=== PATIENT | female | born 1955 | race Caucasian/White ===

== ENCOUNTER 2017-09-02 09:48 | Outpatient (CLI) | payer OTHER ==
--- NOTE | 2017-09-02 13:00 | CT ---
CT CHEST WITHOUT CONTRAST: HISTORY: Followup lung nodule. COMPARISON: CT chest from 01/21/[address] chest from 2015. FINDINGS: Marked severe emphysematous changes. There is a cavitary mass in the left upper lobe, for which the morrison have become markedly thicker from 2015 although, relative to the most recent comparison examina tion, the overall size of the cavitary lesion is slightly smaller, measuring 4.6 x 2.8 cm, previously 5.3 x 4.5 cm. The peripheral thickness of the mass has also decreased in maximum dimension. There is, however, what appears to be a round, nodular area within this (series 3, image 23), measuring 6 m m. The 5 mm nodule in the right lower lobe is similar, all the way back to 2015. There are a few new tr ee in bud opacities in the right lower lobe. A 3 to 4 mm nodule in the posterior segment of the right upper lobe, abutting the major fissure, is s imilar (series 3, image 19). Dense calcification of the aorta. Moderate coronary artery calcificati ons. No mediastinal adenopathy. Withint the left kidney is an exophytic 9 mm hypodensity measuring fluid attenuation. Prior right mastectomy. IMPRESSION: 1. Unchanged right lower lobe pulmonary nodule, measuring 5 mm, likely benign. 2. Decreased sized cavitary mass in the left upper lobe, although there is a 9 mm nodular density wi thin it. Continued surveillance is recommended. PET CT may be beneficial in three to six months. POS: TE[place]ORO
== END 2017-09-02 09:49 | disposition home or self-care (01) ==
LOC: CT 09:48
PROVIDERS: ATTEND Internal Medicine Critical Care Medicine
DX: R91.1 Solitary pulmonary nodule (principal); R91.8 Other nonspecific abnormal finding of lung field
CPT/HCPCS: 71250

== ENCOUNTER 2018-08-04 10:40 | Outpatient (CLI) | payer BC ==
--- NOTE | 2018-08-04 13:01 | RAD ---
PA AND LATERAL VIEWS OF THE CHEST: History: Dyspnea. FINDINGS/IMPRESSION: Comparison made with exam of 02-14-17. The heart size is normal. The aorta is tortuous. The lungs are expanded. There is residual opacity in the left upper lobe since 02-14-17. No pneumothoraces or pleural effusions are seen. There are degener ative changes in the spine. There are surgical clips in the right axilla. POS: ELLE
== END 2018-08-04 10:41 | disposition home or self-care (01) ==
LOC: RAD 10:40
PROVIDERS: ATTEND Internal Medicine Critical Care Medicine
DX: R06.00 Dyspnea, unspecified (principal); R91.8 Other nonspecific abnormal finding of lung field; M47.819 Spondylosis without myelopathy or radiculopathy, site unspecified; Z98.890 Other specified postprocedural states
CPT/HCPCS: 71046

== ENCOUNTER 2019-03-20 15:34 | Emergency (ER) | payer BC, MEDICARE ==
--- NOTE | 2019-03-20 16:28 | RAD ---
Exam:Left hip 2 views HISTORY: Fall. Pain. COMPARISON: 10/01/2013 FINDINGS: Uncomplicated left hip arthroplasty. No fracture. IMPRESSION: No fracture.
[2019-03-20 16:46] LABS: #Eosinphils 0.6 thou/uL (0.0-0.7); #Lymphocytes 4.1 thou/uL (1.20-3.40); #Monocytes 0.8 thou/uL (0.11-0.59); #Neutrophils 6.7 thou/uL (1.40-6.50); %Basophils 0.4 % (0.0-1.0); %Eosinophils 4.6 % (0.0-10.0); %Lymphocytes 33.6 % (21.0-51.0); %Monocytes 6.7 % (0.0-10.0); %Neutrophils 54.6 % (42.0-75.0); Hemoglobin 13.4 g/dL (12.0-16.0); Mean Corpuscular HGB CONC 33.7 g/dL (32.0-36.0); Mean Corpuscular Volume 95.1 fL (78.0-98.0); Platelet Count 288 thou/uL (130-400); RBC Distribution Width 11.6 % (11.5-14.5); Red Blood Cell (RBC) Count 4.18 mill/uL (4.20-5.40); White Blood Cell (WBC) Count 12.2 thou/uL (4.8-10.8)
[2019-03-20 17:03] LABS: Anion Gap 16 mmol/L (10-20); BUN (Urea Nitrogen) 21 mg/dL (9.8-20.1); Calc. Creatinine Clearance 0 mL/min (70-130); Calcium 9.6 mg/dL (7.8-10.44); Carbon Dioxide 23 mmol/L (23-31); Chloride 100 mmol/L (98-107); Estimated GFR-MDRD 35; Glucose 108 mg/dL (80-115); Potassium 4.3 mmol/L (3.5-5.1); Sodium 135 mmol/L (136-145)
[2019-03-20 18:26] LABS: Bilirubin Negative (Negative); Blood, Urine Negative (Negative); Clarity Clear (Clear); Glucose, Urine (Dipstick) Normal (Negative); Leukocyte Negative Leu/uL (Negative); Nitrite Negative (Negative); Protein, Urine (Dipstick) Negative (Neg-Trace); Urobilinogen Normal mg/dL (Less than 2)
--- NOTE | 2019-03-20 19:08 | CT ---
Exam: Pelvic CT without contrast HISTORY: Fall. Pain. Injury. Left-sided back pain FINDINGS: Limited evaluation due to bilateral hip arthroplasties. No evidence of perihardware lucency with rega rds to either arthroplasty. Alignment is symmetric. Urinary bladder is unremarkable Visualized alimentary canal is also grossly unremarkable. Diverticulosis of the sigmoid colon. No div erticulitis Atherosclerosis is noted in terms of the distal abdominal aorta and iliac arteries. Symmetric attenuation of the psoas muscles. Visualized mesentery is unremarkable There is no evidence of a fracture with regards to the left or right inferior/superior pubic rami. Left and right iliac wings are intact. Sacroiliac joints are patent and symmetric. Sacral alar are intact. Degenerative changes in the distal lumbar spine and lumbosacral junction are noted. IMPRESSION: No evidence of fracture.
== END 2019-03-20 20:05 | disposition home or self-care (01) ==
LOC: ERS 15:34
DX: M54.16 Radiculopathy, lumbar region (principal); J44.9 Chronic obstructive pulmonary disease, unspecified; I10 Essential (primary) hypertension; F17.210 Nicotine dependence, cigarettes, uncomplicated; Z79.899 Other long term (current) drug therapy; Z79.51 Long term (current) use of inhaled steroids; W19.XXXA Unspecified fall, initial encounter
CPT/HCPCS: 36415; 72192; 80048; 81003; 85025; 96360; 96361

== ENCOUNTER 2019-08-06 13:16 | Outpatient (CLI) | payer MEDICARE ==
--- NOTE | 2019-08-06 13:53 | BD ---
DEXA SCAN: Date: 08/06/19 INDICATION: COPD. Osteoporosis screening. Malignant neoplasm of breast. FINDINGS: Lumbar Spine: BMD (g/cm2) L1 0.913 T-Score: -0.7 Z-Score: 0.9 L2 1.125 T-Score: 0.9 Z-Score: 2.6 L3 1.126 T-Score: 0.4 Z-Score: 2.3 L4 1.131 T-Score: 0.6 Z-Score: 2.6 L1-L4 1.080 T-Score: 0.3 Z-Score: 2.1 Left Forearm: Ulnar Distal: 0.338 T-Score: -1.8 Z-Score: -0.6 Mid Forearm: 0.473 T-Score: -2.5 Z-Score: -0.8 Proximal 1/3 shaft: 0.570 T-Score: -2.1 Z-Score: 0.4 Total: 0.453 T-Score: -2.3 Z-Score: -0.7 IMPRESSION: Based on WHO criteria, the patient's bone mineral density is considered osteopenic. The patient is at moderate risk for fracture. POS: OFF
== END 2019-08-06 13:17 | disposition home or self-care (01) ==
LOC: BICMAMMO 13:16
PROVIDERS: ATTEND Family Medicine
DX: Z13.820 Encounter for screening for osteoporosis (principal); M81.0 Age-related osteoporosis without current pathological fracture
CPT/HCPCS: 77080

== ENCOUNTER 2020-06-27 09:31 | Outpatient (CLI) | payer MEDICARE ==
--- NOTE | 2020-06-27 09:50 | RAD ---
EXAM: Two views chest PROVIDED CLINICAL HISTORY: Dyspnea. COMPARISON: 06/05/2019 FINDINGS: Cardiac silhouette and pulmonary vasculature are within normal limits. There is a large area of pare nchymal opacity seen involving the left upper lobe with increase in parenchymal opacity seen in this region compared to prior exam. A spiculated lesion now appears to be present within the area of parenchymal opacity. Neoplastic process is diagnosis of exclusion. Right lung remains clear. Surgical clips are seen overlying the right lateral chest. Vascular calcifications are seen in the th oracic aorta. No other interval change. IMPRESSION: Interval increase in parenchymal opacity in the left upper lobe with suggestion of a spiculated lesio n now present. Neoplastic process is diagnosis of exclusion. CT scan thorax is recommended for further evaluation..
== END 2020-06-27 09:32 | disposition home or self-care (01) ==
LOC: BICRAD 09:31
PROVIDERS: ATTEND Internal Medicine Critical Care Medicine
DX: R06.00 Dyspnea, unspecified (principal); R91.8 Other nonspecific abnormal finding of lung field
CPT/HCPCS: 71046

== ENCOUNTER 2020-06-27 11:14 | Inpatient (IN) | payer MEDICARE, OTHER ==
[2020-06-27 14:16] VITALS: BMI 22.4
[2020-06-27] MEDS ORDERED: Bacteriostatic Water 30 ML VIAL FS PRN (15:00)
[2020-06-27] MEDS ORDERED: Albuterol 200 PUFF (6.7GM INHALER) INH PRN (15:22)
[2020-06-27 15:24] LABS: #Eosinphils 0.4 thou/uL (0.0-0.7); #Lymphocytes 2.9 thou/uL (1.20-3.40); #Monocytes 0.9 thou/uL (0.11-0.59); #Neutrophils 7.6 thou/uL (1.40-6.50); %Basophils 0.2 % (0.0-1.0); %Eosinophils 3.3 % (0.0-10.0); %Lymphocytes 24.4 % (21.0-51.0); %Monocytes 7.5 % (0.0-10.0); %Neutrophils 64.7 % (42.0-75.0); Hemoglobin 10.5 g/dL (12.0-16.0); Mean Corpuscular HGB CONC 33.1 g/dL (32.0-36.0); Mean Corpuscular Hemoglobin 27.8 pg (27.0-31.0); Mean Corpuscular Volume 84.2 fL (78.0-98.0); Mean Platelet Volume 6.2 fL (7.4-10.4); Platelet Count 468 thou/uL (130-400); RBC Distribution Width 14.3 % (11.5-14.5); Red Blood Cell (RBC) Count 3.78 mill/uL (4.20-5.40); White Blood Cell (WBC) Count 11.8 thou/uL (4.8-10.8)
[2020-06-27 15:46] LABS: ALT (SGPT) 8 U/L (8-55); AST (SGOT) 20 U/L (5-34); Albumin 3.7 g/dL (3.4-4.8); Alkaline Phosphatase 72 U/L (40-110); Anion Gap 13 mmol/L (10-20); BUN (Urea Nitrogen) 13 mg/dL (9.8-20.1); Bilirubin, Total 0.3 mg/dL (0.2-1.2); Calc. Creatinine Clearance 39 mL/min (70-130); Calcium 8.9 mg/dL (7.8-10.44); Carbon Dioxide 24 mmol/L (23-31); Chloride 98 mmol/L (98-107); Estimated GFR-MDRD 40; Globulin 3.9 g/dL (2.4-3.5); Glucose 124 mg/dL (80-115); Potassium 4.2 mmol/L (3.5-5.1); Protein, Total 7.6 g/dL (6.0-8.3); Sodium 131 mmol/L (136-145)
--- NOTE | 2020-06-27 15:59 | CT ---
CT CHEST WITHOUT IV CONTRAST CLINICAL INDICATION: Abnormal chest x-ray. Masslike opacity left upper lobe on chest x-ray. COMPARISON: CT thorax on 09/02/2017 FINDINGS: Aorta: Dense vascular calcifications in the thoracic aorta as well as involving the coronary arteries . Lungs: There are patchy interstitial and parenchymal opacities seen in the left upper lobe in additio n to a large fluid and gas collection in the left upper lobe measuring 7 cm craniocaudal x6.2 cm AP x5 cm transverse. There is adjacent decreased attenuation seen which is likely related to fluid in th e pleural space. The left upper lobe bronchus is not visualized, and there is suggestion of greater area of soft tissue density in the left hilar/suprahilar location. While a neoplastic process cannot be excluded, findings are worrisome for infection with lung abscess. Minimal irregular patchy nodular density is seen in the medial aspect of the left upper lobe could be related to focal area of pneumonitis. A stable approximately 7 mm pulmonary nodule is seen in the right lower lobe. 4 mm pulmonary nodule s een in the medial aspect right upper lobe A thin-walled cavitary lesion is seen at the posterior aspect of the right lower lobe which was not seen on prior exam. This measures 2 cm. Linear area of peripheral scarring in the right lower lobe is again seen with evidence of mild emphys ematous changes in the upper lobes. Small left pleural effusion is present Mediastinum: Limited secondary to lack of intravenous contrast. Multiple prominent precarinal lymph n ode is seen, this is stable compared to the prior study in 2017. Few mildly prominent prevascular space lymph nodes are seen measuring up to 9 to 10 mm in short axis dimension which are likely reacti ve. Trace pericardial effusion versus pericardial thickening is present. Thyroid gland: Grossly normal nonenhanced CT appearance for Osseous structures: Degenerative changes are seen in the spine. Chest wall: Evidence of right mastectomy. Surgical clips are seen in the right axillary region. Upper abdomen: Exophytic hypodense lesion midportion left kidney incompletely imaged. This was also s een on the prior study but slightly larger in size measuring 1.8 cm on the current exam and previously measuring 1.3 cm. This probably represents mild interval enlargement of a cyst but is diff icult to accurately characterize. Left perinephric inflammatory stranding is partially imaged. There is colonic diverticulosis. IMPRESSION: 1. Interstitial thickening and patchy parenchymal airspace opacities in addition to a fluid and gas c ollection left upper lobe suggesting infectious process and lung abscess with greatest dimension of 7 cm. There is a more masslike density in the left hilar/suprahilar location which also could be rela ann to infectious process, but associated neoplastic process would be difficult to exclude. 2. Areas of scarring in the left upper lobe and right lower lobe which were seen on prior study. Evid ence of COPD. 3. Irregular nodular density right upper lobe which could be related to focal area of pneumonitis. Fo llow-up evaluation recommended. 4. Stable right lower lobe pulmonary nodule. 5. Small left pleural effusion. 6. Difficult to characterize exophytic hypodense lesion superior pole left kidney. Follow-up renal so nogram is suggested. 7. Probable reactive mediastinal lymphadenopathy.
[2020-06-27] MEDS: methylPREDNISolone Sod Succ 40 MG VIAL IVP SCH (16:58)
[2020-06-27] MEDS: cefTRIAXone\\ROCEPHIN 2 GM in Sodium Chloride 0.9% 100 ML IVPB SCH (16:58)
[2020-06-27] MEDS: Benzonatate 100 MG CAP PO SCH ×2 (16:58→20:17)
[2020-06-27] MEDS: Sodium Chloride 0.45% 1,000 ML IV SCH (17:01)
--- NOTE | 2020-06-27 18:49 | HP ---
06/27/2020 HISTORY OF PRESENT ILLNESS: Brit Alexander is a very pleasant woman, now 65 years old. I met her in 2011, when she presented with an abnormal chest CT. She had been diagnosed in the previous year, undergone a mastectomy, and had been treated with hormone therapy. She at that time was losing weight, presumably secondary to an esophageal stricture that subsequently was dilated. CT angiogram done in [place] in January of 2011 showed no lung mass at that time. When she presented to me, she had a cavitary left lung mass that abutted the pleura on the left and liver lesion suggestive of metastatic disease. Her liver was biopsied in [place]. The biopsy was benign liver tissue. She was referred to [place], but decided to come here. She was referred for a CT-guided biopsy of the lung lesion, but when she had a followup CT, the lesion was smaller with thinner morrison, so we elected to follow her and consider workup of the liver lesions. In February of 2013, the lesion had gone from being 35 x 26 to 30 x 12. It is felt that possibly this is aspiration related, i.e. lung abscess. She was seen by Dr. Manzanares and Dr. Garibay, who did not feel her liver lesions need to be addressed. She did not keep her followup with me until 2016. She had a persistent abnormality in her left upper lobe, so I set her up for a CAT scan. Her exam was unremarkable. On the followup CAT scan, she had very dense infiltrates around the bullous airspace disease, it was just bullous disease in 2014. We discussed workup of this abnormality, but she informed me that she would not allow me to treat her malignant process if we identified one. I recommended a followup CT in four months. I reviewed the bronchoscopy, which was done in the past, which was negative for acid-fast bacilli, fungi, or malignant cells. No endobronchial lesions were seen. We discussed resection of this and she again declined. She was seen by me in 2015, which was when the bronchoscopy was done, Achromobacter and Alcaligenes were both isolated and sensitive to sulfa, so she was treated with Bactrim. When she showed up for a CAT scan in January, the density appeared to have more aerated lung around it and it was a little smaller. Again, I discussed resection and she declined. She was still smoking heavily at that time and was wheezing when I saw her. She weighed in the 80-pound range, which put her at risk for even surviving something such as a flu. She was seen in August 2017 and the left lesion had actually continued to shrink. I recommended a followup CT in 9 months after that and she was seen by me basically a year later, in end of July 2018. The density in her left lung was much less visible. I reviewed films with her, going all the way back to 2014. She was still smoking heavily. At that time, she had a cough, so she was given antibiotics and prednisone. I recommended a followup in a year, but she has not been seen by me since then. She presented today with complaints of having a cough with copious amounts of sputum production, especially at night, going back to the beginning of the year. Because of coronavirus, she was unwilling or unable to get in to see anybody, so she came in today. She denies having fever with this. She has been COVID screened somewhere along the way. PAST MEDICAL HISTORY: Remarkable for; 1. Breast cancer. 2. History of elbow surgery. 3. Hip surgery. 4. History of hypertension. 5. History of reflux with esophageal dilation twice. 6. History of tonsillectomy, hysterectomy, and appendectomy. 7. History of mastectomy in March of 2012. It was stage IIA, T2 N0 M0 lesion. 8. History of heavy smoking, one or more packs a day. She does not appear to have ever been a heavy drinker. FAMILY HISTORY: Negative for lung disease in early age. REVIEW OF SYSTEMS: Today is remarkable for the above with no history of hemoptysis. PHYSICAL EXAMINATION: VITAL SIGNS: In the office, her pulse was 120. She says her heart rate has been as high as 130 for months. HEENT: Pupils are equal. Sclerae are anicteric. NECK: Supple. No lymphadenopathy. LUNGS: Clear. HEART: Regular rhythm, rapid rate. No gallop. ABDOMEN: Soft and nontender. EXTREMITIES: Without clubbing, cyanosis, or edema. NEUROLOGIC: Grossly nonfocal. DIAGNOSTIC STUDIES: Chest radiograph shows an alveolar infiltrate in the left upper lobe that was not there two years ago. I found a film done in the emergency room a year ago that shows a linear density in that area that was small. At this point in time, I feel she needs to be admitted. She does not want to go home and actually wants to be in the hospital. She will be treated with nebulized treatments, IV steroids, and empiric antimicrobial therapy to cover for aspiration pathogens. She will have tuberculosis ruled out, although I doubt she has TB. Resting tachycardia can be worked up with an echocardiogram and thyroid studies once her acid-fast smears are documented to be negative. This is a 70 min visit with greater than 50% spent on unit with coordination of care. Job ID: [id number] [facility]ITAL[facility]itt[facility]
[2020-06-27] MEDS: Enoxaparin Sodium 40 MG/0.4 ML SYRINGE SC SCH ×2 (20:16→22:08)
[2020-06-27] MEDS: Famotidine 20 MG TAB PO SCH (20:17)
[2020-06-27] MEDS: Albuterol 200 PUFF (6.7GM INHALER) INH SCH (23:36)
[2020-06-28] MEDS: methylPREDNISolone Sod Succ 40 MG VIAL IVP SCH ×2 (04:47→15:53)
[2020-06-28] MEDS: Sodium Chloride 0.45% 1,000 ML IV SCH ×2 (05:58→20:14)
[2020-06-28] MEDS: Albuterol 200 PUFF (6.7GM INHALER) INH SCH ×4 (05:58→18:32)
[2020-06-28] MEDS: Benzonatate 100 MG CAP PO SCH ×3 (08:38→20:16)
[2020-06-28] MEDS: Aspirin 81 mg Enteric Coated Tablet PO SCH (08:39)
[2020-06-28] MEDS: Losartan 25 MG TAB PO SCH (08:39)
[2020-06-28] MEDS: Famotidine 20 MG TAB PO SCH ×2 (08:39→20:15)
[2020-06-28] MEDS: cefTRIAXone\\ROCEPHIN 2 GM in Sodium Chloride 0.9% 100 ML IVPB SCH (15:53)
[2020-06-28] MEDS: cloNIDine 0.1 MG TAB PO PRN (15:55)
[2020-06-28 16:07] LABS: SARS-CoV-2 MS2 Positive; SARS-CoV-2 N Gene Negative; SARS-CoV-2 S Gene Negative; SARS-CoV-2 by NAA Not Detected (NotDetected); SARS-CoV-2 orf1ab Negative
--- NOTE | 2020-06-28 16:57 | PRG ---
DATE OF SERVICE: 06/28/2020 SUBJECTIVE: Ms. Alexander is doing well. She says she feels much better. Her cough is so much better that she had been able to produce any sputum today. She is no longer wheezing. She was quite bronchospastic yesterday. OBJECTIVE: HEART: Regular rhythm. ABDOMEN: Soft. LABORATORY DATA: CT was reviewed. She has evidence of food in her esophagus up behind her heart as well as her stomach being in her chest. ASSESSMENT AND DISCUSSION: I contacted Dr. Manzanares. He has seen her in the past and he says he has dilated strictures twice that were extremely tight. After I went back and talked to her second time, she informed me that she had noticed that she was having trouble swallowing pills. When I saw her in 2017, she weighed 80 pounds. She weighs 130 pounds now. I asked her how much weight she had gained via a regular diet and she said that she had been gaining weight by eating a lot of ice cream, which also makes me believe that this stricture is a big factor. 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 When I discussed tuberculosis with her and her , she said "the only way I could get tuberculosis is if I got it from the cows." I will discontinue her isolation. We will transfer her to a medical bed. We will continue with IV antibiotics for now. Zosyn might be a little better choice for broad aspiration pathogens coverage, so we will start that this evening. We will continue steroids. Dr. Manzanares informed me that he be willing to do endoscopy when I felt it was stable. I think we should be able to consider endoscopy for possible stricture dilation on Friday. Job ID: [id number]
[2020-06-28] MEDS: guaiFENesin/Codeine Phosphate 200 mg/20 mg 10 ml UD Cup PO PRN ×2 (17:10→23:22)
[2020-06-28] MEDS: Piperacillin/Tazobactam 3.375 GM in Sodium Chloride 0.9% 100 ML IVPB SCH ×2 (17:10→23:22)
--- NOTE | 2020-06-28 17:29 | EKG ---
Test Reason : Blood Pressure : / mmHG Vent. Rate : 111 BPM Atrial Rate : 111 BPM P-R Int : 140 ms QRS Dur : 082 ms QT Int : 324 ms P-R-T Axes : 019 053 074 degrees QTc Int : 440 ms Sinus tachycardia with frequent Premature ventricular complexes Otherwise normal ECG Confirmed by DR. Candis SCHMIDT ([id number]) on 06/28/2020 5:29:22 PM Referred By: AVINASH Confirmed By:DR. Candis SCHMIDT
[2020-06-28] MEDS: Enoxaparin Sodium 40 MG/0.4 ML SYRINGE SC SCH (20:15)
[2020-06-29] MEDS: cloNIDine 0.1 MG TAB PO PRN ×2 (02:59→21:14)
[2020-06-29] MEDS: methylPREDNISolone Sod Succ 40 MG VIAL IVP SCH ×2 (02:59→16:24)
[2020-06-29] MEDS: Piperacillin/Tazobactam 3.375 GM in Sodium Chloride 0.9% 100 ML IVPB SCH ×3 (06:20→18:16)
[2020-06-29] MEDS: Albuterol 200 PUFF (6.7GM INHALER) INH SCH (07:45)
[2020-06-29] MEDS: Aspirin 81 mg Enteric Coated Tablet PO SCH (08:43)
[2020-06-29] MEDS: Famotidine 20 MG TAB PO SCH (08:43)
[2020-06-29] MEDS: Losartan 25 MG TAB PO SCH (08:43)
[2020-06-29] MEDS: Benzonatate 100 MG CAP PO SCH ×3 (08:43→21:12)
[2020-06-29] MEDS: Sodium Chloride 0.45% 1,000 ML IV SCH ×2 (12:00→22:39)
--- NOTE | 2020-06-29 12:30 | PRG ---
DATE OF SERVICE: 06/29/2020 She says she feels like her breakfast is stuck in her esophagus. I have asked her to just move forward throughout the rest of the day with clear liquids. Dr. Manzanares has been consulted. She says she feels 150% better than she felt when she was in my office earlier in the week. In my opinion, clinically it is most likely that she is chronically aspirating and has a left upper lobe aspiration related pneumonia and abscess. Continue IV antibiotics for now. I believe she is stable for endoscopy tomorrow. I do not think waiting will be of any benefit given that it is highly likely she has a recurrent stricture based on her clinical presentation and her CAT scan. Job ID: [id number] [facility]
[2020-06-29] MEDS ORDERED: Pantoprazole 40 MG VIAL IVP SCH (16:15)
[2020-06-29] MEDS: Enoxaparin Sodium 40 MG/0.4 ML SYRINGE SC SCH (21:12)
[2020-06-29] MEDS: traMADol HCl 50 MG TAB PO PRN (21:15)
[2020-06-30] MEDS: Piperacillin/Tazobactam 3.375 GM in Sodium Chloride 0.9% 100 ML IVPB SCH ×5 (00:59→23:44)
[2020-06-30] MEDS: methylPREDNISolone Sod Succ 40 MG VIAL IVP SCH (05:00)
[2020-06-30] MEDS: FLU VACC QS2020-21(65YR UP)/PF 240 MCG/0.7 ML SYRINGE IM ONE (06:54)
[2020-06-30] MEDS: Aspirin 81 mg Enteric Coated Tablet PO SCH (08:37)
[2020-06-30] MEDS: Losartan 25 MG TAB PO SCH (08:37)
[2020-06-30] MEDS: cloNIDine 0.1 MG TAB PO PRN ×2 (08:37→17:26)
[2020-06-30] MEDS: Benzonatate 100 MG CAP PO SCH ×3 (08:37→20:44)
[2020-06-30] MEDS ORDERED: Pantoprazole 40 MG VIAL IVP SCH (09:00)
--- NOTE | 2020-06-30 10:29 | CON ---
DATE OF CONSULTATION: REASON FOR CONSULT: Pneumonia with abscess in the right base of the lung, suspect related to aspiration. HISTORY OF PRESENT ILLNESS: Ms. Alexander is a 65-year-old female known to me from previous issues with tight esophageal strictures, requiring dilatation. Last procedure was about 5 years ago in 12/2014, at which time, she had a very tight pinpoint stricture at 30 cm, the hiatal hernia with hiatus at 40 cm, this was dilated also in 10/2014. I have not seen her since that time. She notes in the past several months, she has had more issues with coughing when lying down, feeling that she has regurgitation when lying down and occasionally she will have dysphagia for solids such as bread or chicken, although this has not really been an issue that she thought about until Dr. Gentile mentioned it. We knew she was being admitted for lung lesions and lung abscess. She has had a history of chronic smoking, bullous lung disease for quite some time. She has had abnormalities with cavitary lung lesions in the past, as recently as 2012. Here, she had a CAT scan showing a large abscess in the right lower lung. Presently with antibiotics, she is feeling much better, not coughing as much when she lays down. Again, she did note she had some dysphagia with the roll ordered today, so she has gone to a liquid diet. PAST MEDICAL HISTORY: Breast cancer, history of elbow surgery, history of hip surgery, hypertension, reflux with previous esophageal dilatations for tight esophageal stricture distally, hysterectomy, tonsillectomy, appendectomy, mastectomy in 2011 with stage IIA cancer. History of heavy smoking continues. FAMILY HISTORY: Negative for lung disease at early age. SOCIAL HISTORY: She denies being a heavy drinker in the past. REVIEW OF SYSTEMS: No history of hemoptysis. Her fevers resolved, chills resolved. She denies any melena, hematochezia, or hematemesis. MEDICATIONS: At home, she notes she takes, 1. Protonix twice a day. 2. Ipratropium bromide. 3. Albuterol. 4. Cyclobenzaprine. 5. Atorvastatin. 6. Aspirin. Here she is on, 1. Albuterol. 2. Lovenox. 3. Pepcid. 4. Solu-Medrol. 5. Zosyn. 6. IV fluid. PHYSICAL EXAMINATION: GENERAL: She is resting comfortably in bed. She cough. She has decreased breath sounds in the right base of lung, but otherwise seems to be moving air pretty well. VITAL SIGNS: Temperature 97, pulse 99, blood pressure is 156/53, respirations 16, and O2 saturation 98% on room air. LUNGS: Clear. HEART: Regular rate and rhythm without clicks or murmurs. ABDOMEN: Soft and nontender. She is thin. She is frail. There is no palpable hepatosplenomegaly. LABORATORY DATA: White count was 13 on admission, is 11.8; hemoglobin is 10.5, down from 13.5; platelet count is 468. INR is 1.1. Sodium 131, potassium 4.3, BUN and creatinine of 13 and 1.32. Liver function tests are normal with AST and ALT of 20 and 8, alkaline phosphatase was 72. TSH 1.5. SARS test negative on the . IMAGING STUDIES: CAT scan of the chest; lung abscess, left upper lobe. ASSESSMENT: Lung abscess, likely related to aspiration. She continues to smoke. She has no overt dysphagia for liquids. She has not eaten anything solid recently. Most of her symptoms are when she reclines, this may be related to return of her tight stricture in the lower esophagus. RECOMMENDATIONS: IV PPI q.12. EGD tomorrow. If the EGD is normal, we will get a swallow study with Speech Pathology to rule out silent aspiration. If she has a stricture, we will get that dilated. Job ID: [id number]
[2020-06-30] MEDS ORDERED: Sodium Chloride 0.9% (PF) 10 ML VIAL FS PRN (11:45)
[2020-06-30] MEDS ORDERED: PROPOFOL 200 MG/20 ML VIAL ONE (11:47)
[2020-06-30] MEDS: Metoclopramide HCl 10 MG TAB PO SCH ×3 (12:36→20:44)
[2020-06-30] MEDS: Sodium Chloride 0.45% 1,000 ML IV SCH (12:36)
--- NOTE | 2020-06-30 14:52 | OP ---
DATE OF PROCEDURE: 06/30/2020 PROCEDURES PERFORMED: 1. Esophagogastroduodenoscopy with biopsy of Kahn esophagus. 2. Dilatation of esophageal stricture. PREPROCEDURE DIAGNOSES: 1. Aspiration pneumonia. 2. Prior history of esophageal strictures, previously dilated in 2013 and 2014. 3. Gastroparesis, previously diagnosed on endoscopy in 2013. POSTPROCEDURE DIAGNOSES: 1. 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 Biopsies obtained in 4 quadrants every 2 cm for 3 bottles at 34, 32, and 30 cm from incisor orifice to evaluate for Kahn's. 2. Retained gastric contents, similar has been seen on previous endoscopies, consistent with gastroparesis. No evidence of gastric outlet obstruction or duodenal obstruction. The amount of food made visualization poor. 3. Slight esophageal stricture at the proximal aspect of the Kahn's, dilated to 18 mm with mild defect. ANESTHESIA: TIVA. RECOMMENDATIONS: 1. B.i.d. PPI. 2. We will start on low-dose Reglan. 3. The patient will need to sleep with head of the bed elevated to prevent aspiration. 4. It may be reasonable to obtain a modified barium swallow to evaluate oropharyngeal dysphagia. She may benefit from Speech Pathology and swallowing exercises. However, I suspect that most of her aspiration is occurring because of her severe gastroparesis and large hiatal hernia. She needs to eat a largest meal earlier in the day when she is more upright. PROCEDURE IN DETAIL: After the patient was informed of the risks, benefits, and possible complications of endoscopy including perforation, bleeding, reaction to medication, and aspiration, informed consent was obtained. The patient was brought to endoscopy suite where she was sedated in gradual fashion. Once she was comfortable, a bite block was placed in the incisor orifice. The endoscope was advanced in the esophagus, stomach, and second and third portions of the duodenum and was slowly removed. The esophagus was notable for Kahn esophagus with measurements above. There was no abnormal mucosa, nodules, or masses in the Kahn's, so a random surveillance biopsies were obtained every 2 cm for 3 jars in a 4-quadrant random fashion. There was slight narrowing at the proximal aspect of the Kahn's in the esophagus, consistent with prior history of strictures. This was not nearly as bad as what was seen in the past. This was dilated with an 18-mm balloon. The scope was advanced into the stomach, where hiatus was noted at 38 cm from incisor orifice. The proximal gastric folds were at 34 cm, proximal Kahn's were at 30. The stomach was entered. There was a copious amount of formed bezoar food material. There was no evidence of gastric outlet obstruction or duodenal obstruction. The duodenum and stomach were incompletely visualized secondary to the large amount of food retained. The scope was removed. The patient tolerated the procedure well and was brought to the recovery room in stable condition. Job ID: [id number]
--- NOTE | 2020-06-30 16:15 | PRG ---
DATE OF SERVICE: 06/30/2020 SUBJECTIVE: Brit Alexander underwent endoscopy. She had minimal stricture, but predominantly gastroparesis, very large hiatal hernia. She has been instructed to make her lunch meal her largest meal and then she probably should get on liquids after that. It is clinically apparent that the cause of her decline was chronic and recurrent aspiration, sleeping on her left side. We will switch her to p.o. steroids today. She says she feels 200% better than she has felt for the last 3 months. We will continue with IV antibiotics for now. We will decide tomorrow when she goes home tomorrow or Friday, but it is likely that she will go home tomorrow given her stability. Job ID: [id number]
[2020-06-30] MEDS: traMADol HCl 50 MG TAB PO PRN (17:28)
[2020-06-30 20:16] VITALS: TEMP 97.9
[2020-06-30] MEDS: Pantoprazole 40 MG VIAL IVP SCH (20:44)
[2020-06-30] MEDS: Enoxaparin Sodium 40 MG/0.4 ML SYRINGE SC SCH (20:45)
[2020-07-01] MEDS: Sodium Chloride 0.45% 1,000 ML IV SCH ×2 (06:01→14:48)
[2020-07-01] MEDS: Piperacillin/Tazobactam 3.375 GM in Sodium Chloride 0.9% 100 ML IVPB SCH ×2 (06:01→12:18)
[2020-07-01 06:11] LABS: Hemoglobin A1c 6.1 % (4.0-6.0)
[2020-07-01] MEDS ORDERED: predniSONE 20 MG TAB PO SCH (08:00)
[2020-07-01] MEDS: Benzonatate 100 MG CAP PO SCH (09:34)
[2020-07-01] MEDS: Losartan 25 MG TAB PO SCH (09:34)
[2020-07-01] MEDS: Aspirin 81 mg Enteric Coated Tablet PO SCH (09:34)
[2020-07-01] MEDS: Metoclopramide HCl 10 MG TAB PO SCH ×2 (09:35→12:19)
[2020-07-01] MEDS: Pantoprazole 40 MG VIAL IVP SCH (09:35)
[2020-07-01] MEDS: traMADol HCl 50 MG TAB PO PRN (09:35)
[2020-07-01] MEDS: cloNIDine 0.1 MG TAB PO PRN (12:24)
[2020-07-01 14:10] VITALS: BP 142/78
[2020-07-01] MEDS: FLU VACC QS2020-21(65YR UP)/PF 240 MCG/0.7 ML SYRINGE IM ONE (14:56)
--- NOTE | 2020-07-02 08:32 | PRG ---
DATE OF SERVICE: 07/01/2020 CROSS COVERAGE: Hany Manzanares MD SUBJECTIVE: This 65-year-old female who has aspiration pneumonia, chronic reflux, history of esophageal stricture, dysphagia. She actually had EGD by Dr. Hany Manzanares and underwent dilation. She also has hiatal hernia and what appears to be . The patient had large amount of retained food material in the area of the stomach, could not be completely visualized. procedure, she was on low-dose Reglan and she is actually feeling a whole lot better. She had several stools through the night and this morning. There is no abdominal pain. No nausea or vomiting. She feels . She has no complaints. OBJECTIVE: GENERAL: Appears very comfortable. She is in no distress. VITAL SIGNS: Afebrile. Pulse is 92, blood pressure CARDIOVASCULAR: LUNGS: Clear to ausculation. ABDOMEN: Soft. . RECOMMENDATIONS: 1. Continue present treatment. 2. Follow up labs. 3. Follow up with Dr. Hany Manzanares. Job ID: [id number]
--- NOTE | 2020-07-04 15:49 | DIS ---
DATE OF ADMISSION: 06/27/2020 DATE OF DISCHARGE: 07/01/2020 DISCHARGE DIAGNOSES: 1. Aspiration pneumonia, lung abscess. 2. Chronic obstructive pulmonary disease with bronchospasm and exacerbation on admission, resolved. 3. Hiatal hernia. 4. Gastroparesis of unclear etiology. 5. Past history of cachexia, most likely related to a stricture and her gastroparesis. She has gained 50 pounds since last seen by me in 2017. HOSPITAL COURSE: Please see history and physical for details. Briefly, Ms. Alexander presented with several months of cough, sputum production and shortness of breath. She was admitted to the hospital after an x-ray showed a dense left upper lobe alveolar infiltrate. She improved dramatically in the first 24 hours and was unable to produce any sputum for acid-fast testing. She has been isolated at home since the beginning of the year, so it is unlikely that she had tuberculosis, especially given her dramatic clinical improvement with steroids and IV antibiotics. She is clinically improved. She has undergone endoscopy which showed only a minor stricture. She did have findings consistent with gastroparesis with abundant retained food products. She has been placed on a liquid diet in the evening, solid diet until lunch every day. She will go home with a prednisone taper lasting 2 weeks. She will take 2 weeks of Augmentin 875 b.i.d. She has been placed on Reglan 5 mg before meals and at bedtime. She will follow up with me in 4 to 6 weeks for a chest x-ray. I will be happy to work her in sooner if she has any problems. She should keep followup with Dr. Manzanares at some point during this time period as well, and this was relayed to her. Prescriptions will be given to the patient. She is stable for discharge with a room air saturation between 95 and 97 and actually claims that she feels 200% better than she felt on admission. Job ID: [id number]
== END 2020-07-01 15:03 | disposition home or self-care (01) | DRG 177 ==
LOC: 2SW 13:31 → T4-B 06-29 02:36
PROVIDERS: ADMIT Internal Medicine Critical Care Medicine; ATTEND Internal Medicine Critical Care Medicine
PROC: 0D718ZZ Dilation of Upper Esophagus, Via Natural or Artificial Opening Endoscopic (ICD-10-PCS; principal; 2020-06-30)
PROC: 0DB58ZX Excision of Esophagus, Via Natural or Artificial Opening Endoscopic, Diagnostic (ICD-10-PCS; 2020-06-30)
DX: J85.1 Abscess of lung with pneumonia (principal); J69.0 Pneumonitis due to inhalation of food and vomit; K31.84 Gastroparesis; I10 Essential (primary) hypertension; K22.70 Barrett's esophagus without dysplasia; K22.2 Esophageal obstruction; K44.9 Diaphragmatic hernia without obstruction or gangrene; K21.9 Gastro-esophageal reflux disease without esophagitis; Z90.49 Acquired absence of other specified parts of digestive tract; Z90.710 Acquired absence of both cervix and uterus; Z88.1 Allergy status to other antibiotic agents; Z88.6 Allergy status to analgesic agent
CPT/HCPCS: 36415; 71046; 71250; 80053; 83036; 84443; 85025; 87116; 87206; 87635; 88305; 88312; 88313; 90471; 90662; 93005; 93010; 94640; C9113; G0008; J0696; J1650; J2543; J2704; J2920; J3490; J7512; J7620; U0003

== ENCOUNTER 2020-07-21 23:53 | Inpatient (IN) | payer MEDICARE ==
[2020-07-22 00:26] VITALS: BMI 22.5
[2020-07-22] MEDS ORDERED: Albuterol 200 PUFF (6.7GM INHALER) INH PRN (02:20)
[2020-07-22] MEDS: Piperacillin/Tazobactam 3.375 GM in Sodium Chloride 0.9% 100 ML IVPB SCH ×3 (03:54→15:35)
[2020-07-22] MEDS: methylPREDNISolone Sod Succ 40 MG VIAL IVP SCH ×3 (03:54→23:16)
--- NOTE | 2020-07-22 04:07 | HP ---
REASON FOR ADMISSION: Shortness of breath. HISTORY OF PRESENT ILLNESS: This is a 65-year-old female patient presenting to the emergency room complaining of shortness of breath and chest pain. The patient was recently discharged from this hospital approximately three weeks ago. She was diagnosed with aspiration pneumonia and lung abscess. She was seen by Dr. Gentile. During her stay, she underwent an EGD that showed minor stricture and finding consistent with gastroparesis with abundant retained food products. She was placed on a liquid diet in the evening, solid diet until lunch every day. She was given antibiotics, then discharged home on Augmentin and a prednisone taper. She finished her course of Augmentin approximately a week ago, as well as her prednisone. She started being short of breath for the past couple days. Also developed chest pain that is constant and localized in the retrosternal area radiating to her back, exacerbated by taking a deep breath. No fevers. No chills. She is coughing, but her sputum is clear. The shortness of breath was at rest and worse with activity. She went back to the emergency room. A CAT scan of the chest revealed worsening of her lung abscess. She was given antibiotics, transferred to our med/surg floor. When I went to see her, she appeared to be comfortable, in no acute distress. PAST MEDICAL HISTORY: 1. COPD. 2. High blood pressure. 3. GERD. 4. Hiatal hernia. 5. Breast cancer, status post mastectomy. Did undergo hormonal therapy. 6. Hip surgery. 7. Elbow surgery. 8. Hysterectomy. SOCIAL HISTORY: She continues to smoke one pack a day. Does not drink alcohol. FAMILY HISTORY: Reviewed and found to be noncontributory. ALLERGIES: TO MORPHINE AND LEVAQUIN. REVIEW OF SYSTEMS: All systems reviewed. Except for the above mentioned, found to be negative. PHYSICAL EXAMINATION: GENERAL: Awake, alert, oriented, does not appear in distress. VITAL SIGNS: Her blood pressure is 150/67, temperature is 97, pulse 94, and saturating 99% on room air. HEENT: Head is nontraumatic, normocephalic. Pupils are equal and reactive. Extraocular movements are intact. Nonicteric sclerae. Well injected conjunctivae. Oral mucosa normal. Nasal mucosa normal. NECK: Supple. No adenopathy. No murmur. Thyroid is not palpable. Trachea is midline. No supraclavicular adenopathy. HEART: S1 and S2 regular. No murmurs. No gallops. No friction rubs. No displacement of PMI. LUNGS: Decreased air entry bilaterally. ABDOMEN: Bowel sounds are positive. Nontender abdomen. No hepatosplenomegaly. EXTREMITIES: No lower extremity edema. No cyanosis. NEURO: Cranial nerves 2 through 12 within normal limits. Normal motor function. Normal sensory function. Normal reflexes. LABORATORY DATA: Blood work shows WBC of 13.7, hemoglobin of 11.7, previous WBC 11.8, and platelet count 347. Sodium of 130, potassium 4.9, bicarb of 20, and creatinine 1.29, baseline 1.32. Urinalysis negative for infection. IMAGING DATA: CT of the chest showed slight increase in size and density of the left upper lobe pathologic process since the prior scan, presumably fluid-filled central area remains. Infiltrative changes in the lung around the area have advanced slightly. There is obviously more volume loss in the left upper lobe than before. Several minimal patchy areas in the right lung as described above. A few particularly, one in the right lower lobe posteriorly, have gotten slightly larger over time. Possibly GE reflux, fluid-filled esophagus. It is rather severe in amount. Presumably at the very least, this is an infectious process and to that extent, it would seem that it is not responding optimally to any antibiotic therapy, since there are some areas getting slightly worse. As has been mentioned before, a concomitant neoplastic component is not excluded on the basis of the CT alone. ASSESSMENT AND PLAN: This is a 65-year-old female patient, presenting with shortness of breath and worsening of her lung abscess and pneumonia. Initially thought that it was due to aspiration. Her CAT scan does show delayed emptying. Pulmonary. The patient will be admitted to Med/Surg. We will start her on neb treatments, on IV Solu-Medrol, also IV Zosyn. We will consult Dr. Gentile. For her blood pressure, we will resume her home medication. We will have her on IV Lopressor on as needed basis. GI. The patient possibly is aspirating, although she denies that. We will start her on a clear liquid diet for now and follow Dr. Gentile's recommendation. For DVT prophylaxis, she will be on SCDs and heparin subcutaneously. If the patient does have chronic renal insufficiency, we will continue to monitor her electrolytes on a daily basis. Job ID: [id number]
[2020-07-22 05:48] LABS: #Eosinphils 0.6 thou/uL (0.0-0.7); #Lymphocytes 1.8 thou/uL (1.20-3.40); #Monocytes 0.5 thou/uL (0.11-0.59); %Basophils 0.1 % (0.0-1.0); %Eosinophils 5.2 % (0.0-10.0); %Lymphocytes 16.7 % (21.0-51.0); %Monocytes 4.4 % (0.0-10.0); %Neutrophils 73.5 % (42.0-75.0); Hemoglobin 10.6 g/dL (12.0-16.0); Mean Corpuscular HGB CONC 32.8 g/dL (32.0-36.0); Mean Corpuscular Hemoglobin 28.3 pg (27.0-31.0); Mean Corpuscular Volume 86.2 fL (78.0-98.0); Mean Platelet Volume 6.7 fL (7.4-10.4); Platelet Count 329 thou/uL (130-400); RBC Distribution Width 16.1 % (11.5-14.5); Red Blood Cell (RBC) Count 3.73 mill/uL (4.20-5.40); White Blood Cell (WBC) Count 10.9 thou/uL (4.8-10.8)
[2020-07-22] MEDS ORDERED: Piperacillin/Tazobactam 3.375 GM in Sodium Chloride 0.9% 100 ML IVPB SCH (06:00)
[2020-07-22 06:14] LABS: Anion Gap 15 mmol/L (10-20); BUN (Urea Nitrogen) 16 mg/dL (9.8-20.1); Calc. Creatinine Clearance 47 mL/min (70-130); Calcium 8.9 mg/dL (7.8-10.44); Carbon Dioxide 23 mmol/L (23-31); Chloride 101 mmol/L (98-107); Glucose 118 mg/dL (80-115); Potassium 4.4 mmol/L (3.5-5.1); Sodium 135 mmol/L (136-145)
[2020-07-22] MEDS: Albuterol 200 PUFF (6.7GM INHALER) INH SCH ×3 (07:22→18:33)
[2020-07-22] MEDS ORDERED: Enoxaparin Sodium 40 MG/0.4 ML SYRINGE SC SCH (09:00)
[2020-07-22] MEDS: Heparin 5,000 UNITS/ML VIAL SC SCH ×2 (09:21→15:38)
--- NOTE | 2020-07-22 12:59 | PDOC.HOSPP ---
- Subjective Encounter Date: 07/22/20 Encounter Time: 10:20 Subjective: Patient denies this morning any pleuritic chest pain or shortness of breath. Ambulating without any respiratory distress. - Objective Vital Signs & Weight: Vital Signs (12 hours) Temp Pulse Resp BP Pulse Ox 07/22/20 12:37 98.1 F 95 18 134/78 96 07/22/20 08:39 98.8 F 106 H 20 112/68 95 07/22/20 08:00 98.8 F 95 07/22/20 04:03 97.1 F L 98 18 126/72 94 L Weight Weight 131 lb 1.6 oz I&O: 07/21/20 07/22/20 07/23/20 06:59 06:59 06:59 Intake Total 740 Balance 740 Result Diagrams: 07/22/20 05:30 07/22/20 05:30 Hospitalist ROS - Medication Medications: Active Medications Generic Name Dose Route Start Last Admin Trade Name Freq PRN Reason Stop Dose Admin Albuterol Sulfate 2 puff 07/22/20 07:00 07/22/20 12:34 Albuterol 200 Puff (6.7gm Inhaler) INH 2 puff [id number] POLO Administration Heparin Sodium (Porcine) 5,000 units 07/22/20 09:00 07/22/20 09:21 Heparin 5,000 Units/Ml Vial SC 5,000 units TID POLO Administration Piperacillin Sod/Tazobactam 100 mls @ 200 mls/hr 07/22/20 03:00 07/22/20 09:19 Sod 3.375 gm/ Sodium Chloride IVPB 100 mls 0300,0900,1500,2100 POLO Administration Methylprednisolone Sodium Succinate 40 mg 07/22/20 03:00 07/22/20 03:54 Methylprednisolone Sod Succ 40 Mg Vial IVP 40 mg 0300,1500 POLO Administration - Exam General Appearance: NAD, awake alert Eye: PERRL ENT: normocephalic atraumatic Neck: supple Heart: RRR, normal peripheral pulses Respiratory: CTAB, normal chest expansion Gastrointestinal: soft, normal bowel sounds Neurological: no focal deficits Psychiatric: A&O x 3 Hosp A/P - Plan Shortness of breath secondary to underlying COPD -aspiration pneumonia and lung abscess that was treated recently and discharged with augmentin and prednisone the roughly 3 weeks ago.. -Repeat CT scan seems to show worsening of her lung abscess. -Continue with the nebulizer treatment IV Solu-Medrol as well as Zosyn. -Pulmonary consult placed. Suspected aspiration issues also causing pulmonary dysfunction -She had an EGD during her last hospitalization which showed minor strictures and possible gastroparesis as evidenced by abundant retained food products. -On Reglan 3 times daily. As well as Protonix. Hypertension patient on telmisartan blood pressure is adequately controlled. Her sats are good at 95% in the room air. She was tested for Covid on June 27 and it was negative Pending pulmonary recommendation Possible discharge in 1 to 2 days. -
--- NOTE | 2020-07-22 18:18 | CON ---
DATE OF CONSULTATION: 07/22/2020 HISTORY OF PRESENT ILLNESS: Ms. Alexander is a 65-year-old female. She is well known to me. I followed her for several years for the left lung abnormality that eventually resolved, which in retrospect may be the same thing that is going on now. She had not been seen by me for quite some time. When she was last seen by me, she weighed in the 80-pound range, but when she came back to see me, she was in the 130-pound range and was admitted from my office with a left upper lobe pneumonia. During this last admission, we identified gastroparesis and esophageal stricture contributing to her pneumonia, which was felt to be secondary to regurgitation of esophageal contents. She goes to sleep on her right side, but wakes up on her left side and pneumonias in her left upper lobe would fit the anatomy of someone regurgitating during sleep and it going into the left main bronchus and into the left upper lobe. She went home on Augmentin. Three days after she stopped her Augmentin, she started having a recurrence of her symptoms. She also was not smoking while she was in the hospital. When went home, she started smoking again. She has COPD. PAST MEDICAL HISTORY: Otherwise remarkable for hypertension, breast cancer, hip surgery, elbow surgery, and hysterectomy. SOCIAL HISTORY: She is a pack-a-day smoker. Does not drink. FAMILY HISTORY: Negative for lung disease in early age. ALLERGIES: SHE REPORTS ALLERGIES TO LEVAQUIN AND MORPHINE. REVIEW OF SYSTEMS: Otherwise negative. PHYSICAL EXAMINATION: VITAL SIGNS: She is afebrile. Heart rate is 95, respiratory rate is 18, oximetry is 96% on room air, blood pressure 134/78. HEAD AND NECK: Unremarkable. LUNGS: Clear surprisingly. HEART: Regular rhythm. ABDOMEN: Soft and nontender. EXTREMITIES: Without clubbing, cyanosis, or edema. Last admission, she looked horrible in the office and was very bronchospastic. She improved rapidly with steroids and antibiotics. IMPRESSION AND PLAN: CT scan has been reviewed. This is very similar to her last CAT scan. She was treated with Zosyn last admission. I would recommend changing her antimicrobial therapy. I would also recommend treating with steroids. This probably made the biggest difference in her improvement. She needs nebulizer treatments. I would wonder if she would not benefit from a jejunostomy tube so that she can get the majority of her nutrition that way. This was a 50 min consult with greater than 50% of the time spent on the unit with coordination of care. Job ID: [id number] KAYLEY
[2020-07-22] MEDS: Meropenem 2 GM in Sodium Chloride 0.9% 100 ML IVPB SCH (20:47)
[2020-07-22] MEDS: Metoclopramide HCl 10 MG TAB PO SCH (20:47)
[2020-07-22] MEDS: Guaifenesin DM 100-10/5 ML UDCUP PO PRN (23:13)
[2020-07-22] MEDS: HYDROcodone/Acetaminophen 10/325 mg Tablet PO PRN (23:14)
[2020-07-22] MEDS ORDERED: methylPREDNISolone Sod Succ/PF 125 MG/2 ML VIAL IVP SCH (23:59)
[2020-07-23] MEDS: Meropenem 2 GM in Sodium Chloride 0.9% 100 ML IVPB SCH ×3 (05:00→21:52)
[2020-07-23] MEDS: Metoprolol Tartrate 5 MG/5 ML VIAL IVP PRN (05:20)
[2020-07-23] MEDS: methylPREDNISolone Sod Succ 40 MG VIAL IVP SCH ×4 (05:20→21:16)
[2020-07-23] MEDS: Albuterol 200 PUFF (6.7GM INHALER) INH SCH ×5 (07:06→23:56)
[2020-07-23] MEDS: Metoclopramide HCl 10 MG TAB PO SCH ×2 (07:35→11:46)
[2020-07-23] MEDS: Enoxaparin Sodium 40 MG/0.4 ML SYRINGE SC SCH (07:37)
[2020-07-23] MEDS: Bacteriostatic Water 30 ML VIAL FS PRN ×2 (08:39→14:19)
--- NOTE | 2020-07-23 09:49 | PRG ---
DATE OF SERVICE: 07/23/2020 SUBJECTIVE: Brit Alexander is in no distress. OBJECTIVE: VITAL SIGNS: She is on room air. Oximetry is 94. She is afebrile. Heart rate is 93, blood pressure 154/79. LUNGS: Remarkable for distant breath sounds. HEART: Regular rhythm. ABDOMEN: Soft. IMPRESSION: 1. Subacute left upper lobe infiltrate secondary to chronic recurrent aspiration. 2. Gastroparesis. 3. Long history of tobacco use. 4. History of anorexia, we were following a similar abnormality several years ago. She was down to 80 pounds at that time, but got up to 130 pounds, eating [place] ice cream. Lately, she has been mixing [place] and Ensure. I have consulted Dr. Manzanares again. One option in my opinion would be a jejunostomy tube which would allow for nutrition independent of her gastroparesis and probably at least in part eliminates the significant regurgitation of food products. Dr. Manzanares has some other ideas to try first, so I will defer to him. For now, we will continue IV antimicrobial therapy, but probably tomorrow we can switch to p.o. antimicrobial therapy. The issue with the antimicrobial therapy by mouth is that it will likely be retained in the stomach, so another option might be a PICC line for a couple of weeks of antibiotics. Hopefully, we will have to open that door. Job ID: [id number]
--- NOTE | 2020-07-23 12:49 | PDOC.HOSPP ---
- Subjective Encounter Date: 07/23/20 Encounter Time: 11:20 Subjective: Patient is doing well no shortness of breath no cough and fever. She is on clear liquid diet and will continue with the same. Antibiotics changed to meropenem. - Objective Vital Signs & Weight: Vital Signs (12 hours) Temp Pulse Resp BP Pulse Ox 07/23/20 11:38 97.9 F 91 20 134/74 96 07/23/20 08:00 97.9 F 07/23/20 07:43 97.9 F 93 20 154/79 H 94 L 07/23/20 06:00 138/77 07/23/20 05:15 97 156/82 H Weight Weight 131 lb 1.6 oz I&O: 07/22/20 07/23/20 07/24/20 06:59 06:59 06:59 Intake Total 2590 650 Balance 2590 650 Result Diagrams: 07/22/20 05:30 07/22/20 05:30 Hospitalist ROS - Medication Medications: Active Medications Generic Name Dose Route Start Last Admin Trade Name Freq PRN Reason Stop Dose Admin Hydrocodone Bitart/Acetaminophen 1 tab 07/22/20 22:23 07/22/20 23:14 Hydrocodone/Acetaminophen 10/325 Mg Tablet PO 1 tab Q6H PRN Administration Moderate Pain (4-6) Albuterol Sulfate 2 puff 07/22/20 07:00 07/23/20 12:15 Albuterol 200 Puff (6.7gm Inhaler) INH 2 puff [id number] POLO Administration Enoxaparin Sodium 40 mg 07/23/20 09:00 07/23/20 07:37 Enoxaparin Sodium 40 Mg/0.4 Ml Syringe SC 40 mg 0900 POLO Administration Guaifenesin/Dextromethorphan 10 ml 07/22/20 02:14 07/22/20 23:13 Guaifenesin Dm 100-10/5 Ml Udcup PO 10 ml Q4H PRN Administration Cough Meropenem 2 gm/ Sodium 100 mls @ 200 mls/hr 07/22/20 20:00 07/23/20 05:00 Chloride IVPB 100 mls 0400,1200,2000 POLO Administration Methylprednisolone Sodium Succinate 20 mg 07/23/20 08:00 07/23/20 08:39 Methylprednisolone Sod Succ 40 Mg Vial IVP 20 mg 0200,0800,1400,1999 POLO Administration Metoclopramide HCl 10 mg 07/22/20 21:00 07/23/20 11:46 Metoclopramide Hcl 10 Mg Tab PO 10 mg ACHS POLO Administration Metoprolol Tartrate 5 mg 07/22/20 02:21 07/23/20 05:20 Metoprolol Tartrate 5 Mg/5 Ml Vial IVP 5 mg Q6H PRN Administration SBP > 140 Sterile Water 1 ml 07/23/20 08:15 07/23/20 08:39 Bacteriostatic Water 30 Ml Vial FS 1 ml PRN PRN Administration RECONSTITUTION - Exam General Appearance: NAD, awake alert Eye: PERRL, anicteric sclera ENT: normocephalic atraumatic Neck: supple Heart: RRR Respiratory: CTAB Gastrointestinal: soft, normal bowel sounds Neurological: no focal deficits Psychiatric: A&O x 3 Hosp A/P - Plan Shortness of breath secondary to underlying COPD Her sats are good at 95% in the room air. She was tested for Covid on June 27 and it was negative -Recurrent aspiration pneumonia and lung abscess that was treated recently and discharged with augmentin and prednisone the roughly 3 weeks ago.. -Repeat CT scan seems to show worsening of her lung abscess. -Continue with the nebulizer treatment IV Solu-Medrol as well as merum Gastroparesis -She had an EGD during her last hospitalization which showed minor strictures and possible gastroparesis as evidenced by abundant retained food products. -On Reglan 3 times daily. As well as Protonix. -There is a thought process for J-tube placement as she seems to be a high risk for severe gastroparesis. Also consideration for long duration of antibiotic in the IV form. -Due to the complexity and the need for PICC line, I will consult infectious disease as well. Hypertension patient on telmisartan -blood pressure is adequately controlled. -
[2020-07-23 15:20] LABS: SARS-CoV-2 MS2 Positive; SARS-CoV-2 N Gene Negative; SARS-CoV-2 S Gene Negative; SARS-CoV-2 by NAA Not Detected (NotDetected); SARS-CoV-2 orf1ab Negative
[2020-07-23] MEDS ORDERED: Metoclopramide HCl 10 MG/2 ML VIAL IVP PRN (16:06)
--- NOTE | 2020-07-23 16:45 | PRG ---
DATE OF SERVICE: 07/23/2020 SUBJECTIVE: Ms. Alexander was admitted to the hospital for high blood pressure, some dyspnea and nausea. She had recently been here 2 to 3 weeks ago in mid June for pulmonary abscesses and what was felt to be aspiration related to her gastroparesis and previous esophageal strictures. Her EGD at that time showed a shallow ring at the lower esophageal junction. Biopsy showed no Kahn or dysplasia. Her EGD also showed a large hiatal hernia. She was readmitted on the with shortness of breath and felt better pretty quickly after being admitted. She felt she had done better when she was on antibiotics and steroids. PHYSICAL EXAMINATION: VITAL SIGNS: Temperature 97.9, pulse 91, blood pressure 134/74. ABDOMEN: Slightly protuberant, but nontender. There is no rebound. There is no guarding. LABORATORY DATA: Yesterday white count was 10.9, hemoglobin 10.6, platelet count was 329. Electrolytes normal. BUN and creatinine were 16 and 1.11. Liver function tests notable for an albumin of 4, protein 7.9. Normal liver function tests on 06/20. ASSESSMENT: 1. Severe gastroparesis. 2. Large 8 cm hiatal hernia. 3. Aspiration pneumonia, chronic, recurrent, related to #1 and #2 above. RECOMMENDATION: 1. Continue liquid diet. 2. IV Reglan for now. 3. Sleep with head of the bed elevated at all times. 4. We can consider option of Dobhoff jejunal feeding tube in the small bowel, however, really not eating much by mouth, although she still be at risk for aspiration when she lays down. We will talk further with Dr. Gentile, supervisor cereal tomorrow. The patient does seem to have been compliant at home with Reglan and PPI therapy and her gastroparesis diet, so I not sure there is much to be gained by stressing that further. Job ID: [id number]
[2020-07-23] MEDS: Ondansetron PF 4 MG/2 ML Vial IVP PRN ×2 (18:40→22:22)
[2020-07-23] MEDS: Guaifenesin DM 100-10/5 ML UDCUP PO PRN (21:15)
[2020-07-23] MEDS: Pantoprazole 40 MG VIAL IVP SCH (21:16)
[2020-07-23] MEDS: HYDROcodone/Acetaminophen 10/325 mg Tablet PO PRN (22:40)
[2020-07-24] MEDS: Metoprolol Tartrate 5 MG/5 ML VIAL IVP PRN ×2 (01:12→06:35)
[2020-07-24] MEDS: methylPREDNISolone Sod Succ 40 MG VIAL IVP SCH ×4 (01:12→21:51)
[2020-07-24] MEDS: Meropenem 2 GM in Sodium Chloride 0.9% 100 ML IVPB SCH ×3 (04:49→21:50)
[2020-07-24] MEDS: Ondansetron PF 4 MG/2 ML Vial IVP PRN (06:35)
[2020-07-24] MEDS: Albuterol 200 PUFF (6.7GM INHALER) INH SCH ×4 (06:47→23:14)
[2020-07-24] MEDS: Enoxaparin Sodium 40 MG/0.4 ML SYRINGE SC SCH (08:18)
[2020-07-24] MEDS: HYDROcodone/Acetaminophen 10/325 mg Tablet PO PRN ×2 (08:19→17:03)
[2020-07-24] MEDS: Pantoprazole 40 MG VIAL IVP SCH ×2 (08:19→21:52)
[2020-07-24] MEDS: Metoclopramide HCl 10 MG/2 ML VIAL IVP SCH ×2 (12:14→17:03)
--- NOTE | 2020-07-24 12:26 | PRG ---
DATE OF SERVICE: 07/24/2020 OBJECTIVE: VITAL SIGNS: Temperature 97.6, pulse 70, blood pressure 173/87. ABDOMEN: Soft, nontender. LABORATORY DATA: None. ASSESSMENT: 1. Large hiatal hernia. 2. Chronic gastroparesis, idiopathic. 3. Continued smoking. 4. Lung abscess from aspiration pneumonia. 5. Continued reflux and regurgitation modification. RECOMMENDATIONS: 1. Consider J-tube feeding if the patient would commit to not eating solids by mouth. 2. We would keep her on clear liquids at this time and Reglan IV q.6 scheduled. Job ID: [id number]
--- NOTE | 2020-07-24 16:05 | PRG ---
DATE OF SERVICE: Brit Alexander is doing better. She is afebrile. Heart rate is in 80s, respiratory rate 20, oximetry is 98, blood pressure 132/72. She is in no distress. Awaiting input of Gastroenterology. Job ID: [id number]
[2020-07-24] MEDS: guaiFENesin ER 600 MG TAB PO SCH (21:51)
--- NOTE | 2020-07-24 22:08 | PDOC.HOSPP ---
- Subjective Encounter Date: 07/24/20 Encounter Time: 14:00 Subjective: Patient seen and examined for lung abscess with swallowing dysfunction. Poor appetite. Denies any chest pain. Mild cough with minimal production. - Objective Vital Signs & Weight: Vital Signs (12 hours) Temp Pulse Resp BP BP Pulse Ox 07/24/20 19:12 97.9 F 84 20 123/67 97 07/24/20 16:00 98.2 F 81 12 130/74 98 07/24/20 11:33 97.9 F 87 20 132/72 98 Weight Weight 131 lb 1.6 oz I&O: 07/23/20 07/24/20 07/25/20 06:59 06:59 06:59 Intake Total 2590 1450 1195 Balance 2590 1450 1195 Result Diagrams: 07/25/20 05:35 07/25/20 05:35 Radiology Reviewed by me: Yes (CT chestlung abscess) Hospitalist ROS - Review of Systems Constitutional: reports: weakness, malaise Genitourinary: denies: dysuria, frequency, incontinence, hematuria, retention, other - Medication Medications: Active Medications Generic Name Dose Route Start Last Admin Trade Name Freq PRN Reason Stop Dose Admin Hydrocodone Bitart/Acetaminophen 1 tab 07/22/20 22:23 07/24/20 17:03 Hydrocodone/Acetaminophen 10/325 Mg Tablet PO 1 tab Q6H PRN Administration Moderate Pain (4-6) Albuterol Sulfate 2 puff 07/22/20 02:20 07/23/20 22:44 Albuterol 200 Puff (6.7gm Inhaler) INH 2 inh Q2H PRN Administration SOB &/or Wheezing Albuterol Sulfate 2 puff 07/22/20 07:00 07/24/20 19:16 Albuterol 200 Puff (6.7gm Inhaler) INH 2 puff [id number] POLO Administration Enoxaparin Sodium 40 mg 07/23/20 09:00 07/24/20 08:18 Enoxaparin Sodium 40 Mg/0.4 Ml Syringe SC 40 mg 0900 POLO Administration Guaifenesin 600 mg 07/24/20 21:00 07/24/20 21:51 Guaifenesin Er 600 Mg Tab PO 600 mg Q12HR POLO Administration Guaifenesin/Dextromethorphan 10 ml 07/22/20 02:14 07/23/20 21:15 Guaifenesin Dm 100-10/5 Ml Udcup PO 10 ml Q4H PRN Administration Cough Meropenem 2 gm/ Sodium 100 mls @ 200 mls/hr 07/22/20 20:00 07/24/20 21:50 Chloride IVPB 100 mls 0400,1200,2000 POLO Administration Methylprednisolone Sodium Succinate 20 mg 07/23/20 08:00 07/24/20 21:51 Methylprednisolone Sod Succ 40 Mg Vial IVP 20 mg 0200,0800,1400,1999 POLO Administration Metoclopramide HCl 10 mg 07/24/20 12:00 07/24/20 17:03 Metoclopramide Hcl 10 Mg/2 Ml Vial IVP 10 mg Q6H POLO Administration Metoprolol Tartrate 5 mg 07/22/20 02:21 07/24/20 06:35 Metoprolol Tartrate 5 Mg/5 Ml Vial IVP 5 mg Q6H PRN Administration SBP > 140 Ondansetron HCl 4 mg 07/23/20 18:30 07/24/20 06:35 Ondansetron Pf 4 Mg/2 Ml Vial IVP 4 mg Q4H PRN Administration Nausea/Vomiting Pantoprazole Sodium 40 mg 07/23/20 21:00 07/24/20 21:52 Pantoprazole 40 Mg Vial IVP 40 mg Q12HR POLO Administration Sterile Water 1 ml 07/23/20 08:15 07/23/20 14:19 Bacteriostatic Water 30 Ml Vial FS 1 ml PRN PRN Administration RECONSTITUTION - Exam General Appearance: ill appearing Heart: RRR, no gallops Respiratory: no wheezes, rales, rhonchi Gastrointestinal: soft, no guarding, no rigidity, diminished bowl sounds Extremities: no cyanosis Neurological: no new deficit Hosp A/P - Plan DVT proph w/lovenox, DVT proph w/SCDs Aspiration pneumonia/lung abscess Chronic gastroparesis Large hiatal hernia COPD Hypertension GERD History of breast cancer CKD stage III Moderate protein calorie malnutrition Tobacco dependence Plan: Continue IV meropenem. Continue IV PPIs. Continue IV Reglan. Check vitamin B12 and folic acid. Counseled on tobacco cessation. Continue albuterol every 6 hourly. Consult dietitian.
[2020-07-25] MEDS: Metoclopramide HCl 10 MG/2 ML VIAL IVP SCH ×5 (00:50→23:20)
[2020-07-25] MEDS: methylPREDNISolone Sod Succ 40 MG VIAL IVP SCH ×4 (01:30→20:42)
[2020-07-25] MEDS: Meropenem 2 GM in Sodium Chloride 0.9% 100 ML IVPB SCH ×3 (05:21→20:42)
[2020-07-25 05:50] LABS: #Lymphocytes 1.9 thou/uL (1.20-3.40); #Monocytes 0.6 thou/uL (0.11-0.59); #Neutrophils 8.9 thou/uL (1.40-6.50); %Basophils 0.1 % (0.0-1.0); %Eosinophils 0.3 % (0.0-10.0); %Lymphocytes 16.7 % (21.0-51.0); %Monocytes 4.9 % (0.0-10.0); %Neutrophils 78.1 % (42.0-75.0); Mean Corpuscular HGB CONC 32.6 g/dL (32.0-36.0); Mean Corpuscular Volume 85.8 fL (78.0-98.0); Mean Platelet Volume 6.6 fL (7.4-10.4); Platelet Count 398 thou/uL (130-400); Red Blood Cell (RBC) Count 4.28 mill/uL (4.20-5.40); White Blood Cell (WBC) Count 11.3 thou/uL (4.8-10.8)
[2020-07-25 06:09] LABS: ALT (SGPT) 11 U/L (8-55); AST (SGOT) 14 U/L (5-34); Alkaline Phosphatase 66 U/L (40-110); Anion Gap 15 mmol/L (10-20); BUN (Urea Nitrogen) 19 mg/dL (9.8-20.1); Bilirubin, Total 0.3 mg/dL (0.2-1.2); Calc. Creatinine Clearance 39 mL/min (70-130); Calcium 9.4 mg/dL (7.8-10.44); Carbon Dioxide 25 mmol/L (23-31); Chloride 98 mmol/L (98-107); Globulin 3.4 g/dL (2.4-3.5); Glucose 142 mg/dL (80-115); Magnesium 2.1 mg/dL (1.6-2.6); Phosphorus 3.2 mg/dL (2.3-4.7); Potassium 4.3 mmol/L (3.5-5.1); Protein, Total 7.4 g/dL (6.0-8.3); Sodium 134 mmol/L (136-145)
[2020-07-25] MEDS: Albuterol 200 PUFF (6.7GM INHALER) INH SCH ×3 (07:10→19:03)
[2020-07-25] MEDS: Saccharomyces boulardii 250 MG CAP PO SCH (08:18)
[2020-07-25] MEDS: guaiFENesin ER 600 MG TAB PO SCH ×2 (08:18→20:41)
[2020-07-25] MEDS: Pantoprazole 40 MG VIAL IVP SCH ×2 (08:18→20:41)
[2020-07-25] MEDS: Enoxaparin Sodium 40 MG/0.4 ML SYRINGE SC SCH (08:18)
[2020-07-25] MEDS: HYDROcodone/Acetaminophen 10/325 mg Tablet PO PRN ×2 (08:18→18:17)
[2020-07-25] MEDS: Multivit, Therapeutic 1 TAB PO SCH (08:18)
[2020-07-25] MEDS ORDERED: cloNIDine 0.1 MG TAB PO PRN (08:39)
[2020-07-25] MEDS ORDERED: Cyanocobalamin 1000 MCG/ML VIAL IM SCH (08:45)
[2020-07-25] MEDS: Cyanocobalamin (Vitamin B-12) 1,000 MCG TAB PO SCH (09:40)
[2020-07-25] MEDS: Folic Acid 1 MG TAB PO SCH ×2 (09:40→20:41)
--- NOTE | 2020-07-25 10:19 | CON ---
DATE OF CONSULTATION: 07/25/2020 REASON FOR CONSULT: Aspiration, needs feeding tube. HISTORY OF PRESENT ILLNESS: This is a 65-year-old female with a history of COPD, now complicated by chronic aspiration, previously diagnosed with chronic gastroparesis as well. She has upper lobe infiltrate and lung abscess that was being treated with long-term antibiotics. I have been consulted for feeding jejunostomy tube. She is aspirating and is not going to be able to continue to take p.o. to manage her nutritional needs. PAST MEDICAL HISTORY: COPD, hypertension, GERD, and hiatal hernia. PAST SURGICAL HISTORY: Mastectomy, elbow, hysterectomy, and hip. SOCIAL HISTORY: She is a daily smoker. No alcohol. REVIEW OF SYSTEMS: 10-sytem review of systems is otherwise negative. ALLERGIES: MORPHINE AND LEVAQUIN. MEDICATIONS: See list. FAMILY HISTORY: Noncontributory for GI malignancy or anesthetic-related complication. PHYSICAL EXAMINATION: VITAL SIGNS: Blood pressure 117/73, pulse 99, and respirations 14. HEENT: Sclerae anicteric. Oropharynx clear. NECK: No lymphadenopathy. CHEST: Coarse breath sounds bilateral. HEART: Regular rate. ABDOMEN: Soft, nontender. No hernias or upper abdominal incisions or scars. EXTREMITIES: No edema to extremities. ASSESSMENT: History of chronic obstructive pulmonary disease, now complicated by gastroparesis and chronic aspiration. PLAN: Feeding jejunal tube, possible to do a Mccoy gastric jejunal tube. Risks, benefits, and alternatives discussed. Dr. Gentile said she is safe for surgery tomorrow. We will put her on and do it then. Job ID: [id number]
--- NOTE | 2020-07-25 13:08 | PRG ---
DATE OF SERVICE: 07/25/2020 SUBJECTIVE: Ms. Alexander is feeling okay today. Some mild nausea, but no vomiting. She is set for jejunostomy tube placement tomorrow. OBJECTIVE: VITAL SIGNS: Temperature 98.2, pulse 99, blood pressure 117/73, 93% oxygen saturation on room air. GENERAL: No acute distress, sitting up in bed comfortably. HEART: Regular rate and rhythm. LUNGS: Clear to auscultation bilaterally. ABDOMEN: Soft, nontender to palpation. EXTREMITIES: No peripheral edema. LABORATORY STUDIES: COVID PCR negative. Sodium 134, potassium 4.3, BUN 19, creatinine 1.34, total bilirubin 0.3, alkaline phosphatase 66, AST 14, ALT 11. Vitamin B12 is 395, folate is low at 3.2. WBC 11.3, hemoglobin 12.0, platelets 398. ASSESSMENT AND PLAN: 1. Gastroparesis, severe. 2. Chronic aspiration. 3. Large hiatal hernia. She continues on clear liquids and IV Reglan. Plan is to proceed with jejunostomy tube placement tomorrow. Job ID: [id number]
--- NOTE | 2020-07-25 14:57 | PRG ---
DATE OF SERVICE: 07/25/2020 OBJECTIVE: VITAL SIGNS: Brit Alexander is afebrile. Heart rate is 99, respiratory rate 14, oximetry is 93% on room air, blood pressure is 117/73. LUNGS: Unchanged. HEART: Unchanged. ABDOMEN: Unchanged. Consulted General Surgery for feeding jejunostomy tube. I think now waiting would be a better option. We have to stop allowing her to eat which is leading to recurrent pneumonia. I still suspect her left upper lobe abnormalities will take months to resolve as they have in the past. We will continue with IV antibiotics until after surgery after jejunostomy tubes in place. Job ID: [id number]
--- NOTE | 2020-07-25 19:54 | PDOC.HOSPP ---
- Subjective Encounter Date: 07/25/20 Encounter Time: 11:45 Subjective: Patient seen and examined for lung abscess/aspiration pneumonia. Denies any new complaints. Poor appetite. Several bowel movements today. - Objective Vital Signs & Weight: Vital Signs (12 hours) Temp Pulse Resp BP Pulse Ox 07/25/20 19:14 97.9 F 89 20 154/78 H 95 Weight Admit Weight 131 lb 1.6 oz Weight 131 lb 1.6 oz I&O: 07/24/20 07/25/20 07/26/20 06:59 06:59 06:59 Intake Total 1450 1195 1125 Balance 1450 1195 1125 Result Diagrams: 07/25/20 05:35 07/25/20 05:35 Additional Labs: Abnormal Lab Results - Last 48 hrs 07/25/20 05:35: Sodium 134 L, Creatinine 1.34 H 07/25/20 05:35: Folate 3.20 L 07/25/20 05:35: WBC 11.3 H, RDW 16.0 H, MPV 6.6 L, Neutrophils % 78.1 H, Ly mphocytes % 16.7 L, Neutrophils # 8.9 H, Monocytes # 0.6 H Radiology Reviewed by me: Yes (CT chestlung abscess) Hospitalist ROS - Review of Systems Cardiovascular: denies: chest pain, palpitations, orthopnea, paroxysmal noc. dyspnea, edema, light headedness, other Genitourinary: denies: dysuria, frequency, incontinence, hematuria, retention, other - Medication Medications: Active Medications Generic Name Dose Route Start Last Admin Trade Name Freq PRN Reason Stop Dose Admin Hydrocodone Bitart/Acetaminophen 1 tab 07/22/20 22:23 07/25/20 18:17 Hydrocodone/Acetaminophen 10/325 Mg Tablet PO 1 tab Q6H PRN Administration Moderate Pain (4-6) Albuterol Sulfate 2 puff 07/22/20 02:20 07/23/20 22:44 Albuterol 200 Puff (6.7gm Inhaler) INH 2 inh Q2H PRN Administration SOB &/or Wheezing Albuterol Sulfate 2 puff 07/22/20 07:00 07/25/20 19:03 Albuterol 200 Puff (6.7gm Inhaler) INH 2 puff [id number] POLO Administration Cyanocobalamin 1,000 mcg 07/25/20 09:00 07/25/20 09:40 Cyanocobalamin (Vitamin B-12) 1,000 Mcg Tab PO 1,000 mcg DAILY POLO Administration Enoxaparin Sodium 40 mg 07/23/20 09:00 07/25/20 08:18 Enoxaparin Sodium 40 Mg/0.4 Ml Syringe SC 40 mg 0900 POLO Administration Folic Acid 1 mg 07/25/20 09:00 07/25/20 09:40 Folic Acid 1 Mg Tab PO 1 mg BID POLO Administration Guaifenesin 600 mg 07/24/20 21:00 07/25/20 08:18 Guaifenesin Er 600 Mg Tab PO 600 mg Q12HR POLO Administration Meropenem 2 gm/ Sodium 100 mls @ 200 mls/hr 07/22/20 20:00 07/25/20 12:16 Chloride IVPB 100 mls 0400,1200,2000 POLO Administration Methylprednisolone Sodium Succinate 20 mg 07/23/20 08:00 07/25/20 14:31 Methylprednisolone Sod Succ 40 Mg Vial IVP 20 mg 0200,0800,1400,1999 POLO Administration Metoclopramide HCl 10 mg 07/24/20 12:00 07/25/20 18:17 Metoclopramide Hcl 10 Mg/2 Ml Vial IVP 10 mg Q6H POLO Administration Multivitamins 1 tab 07/25/20 09:00 07/25/20 08:18 Multivit, Therapeutic 1 Tab PO 1 tab DAILY POLO Administration Ondansetron HCl 4 mg 07/23/20 18:30 07/24/20 06:35 Ondansetron Pf 4 Mg/2 Ml Vial IVP 4 mg Q4H PRN Administration Nausea/Vomiting Pantoprazole Sodium 40 mg 07/23/20 21:00 07/25/20 08:18 Pantoprazole 40 Mg Vial IVP 40 mg Q12HR POLO Administration Saccharomyces Boulardii 250 mg 07/25/20 09:00 07/25/20 08:18 Saccharomyces Boulardii 250 Mg Cap PO 250 mg DAILY POLO Administration Sterile Water 1 ml 07/23/20 08:15 07/23/20 14:19 Bacteriostatic Water 30 Ml Vial FS 1 ml PRN PRN Administration RECONSTITUTION - Exam General Appearance: ill appearing Heart: RRR, no gallops Respiratory: no wheezes, rales, rhonchi Gastrointestinal: soft, no guarding, no rigidity Extremities: no cyanosis Neurological: no new deficit Hosp A/P - Plan DVT proph w/SCDs Aspiration pneumonia/lung abscess Chronic gastroparesis Large hiatal hernia COPD Hypertension Vitamin B12/folic acid deficiency GERD History of breast cancer CKD stage III Moderate protein calorie malnutrition Tobacco dependence Plan: General surgery consultation for jejunostomy tube. Continue IV meropenem for lung abscess. Replace vitamin B12 and folic acid. Start gentle IV hydration. N.p.o. past midnight. Ambulate.
[2020-07-25] MEDS: Dextrose 5 %-0.45 % NaCl 1,000 ML IV SCH (20:42)
[2020-07-25] MEDS ORDERED: Melatonin 3 MG TAB PO PRN (21:41)
[2020-07-26] MEDS: methylPREDNISolone Sod Succ 40 MG VIAL IVP SCH ×5 (03:17→21:27)
[2020-07-26] MEDS: Meropenem 2 GM in Sodium Chloride 0.9% 100 ML IVPB SCH ×2 (03:18→13:00)
[2020-07-26] MEDS: Albuterol 200 PUFF (6.7GM INHALER) INH SCH ×2 (03:20→07:15)
[2020-07-26] MEDS: Metoclopramide HCl 10 MG/2 ML VIAL IVP SCH ×3 (05:05→17:33)
[2020-07-26 06:55] LABS: PTT 31.3 sec (22.9-36.1); Prothrombin Time 13.6 sec (12.0-14.7)
[2020-07-26 07:16] LABS: #Eosinphils 0.1 thou/uL (0.0-0.7); #Monocytes 0.7 thou/uL (0.11-0.59); #Neutrophils 9.6 thou/uL (1.40-6.50); %Eosinophils 0.5 % (0.0-10.0); %Lymphocytes 16.1 % (21.0-51.0); %Monocytes 5.9 % (0.0-10.0); %Neutrophils 77.6 % (42.0-75.0); Hemoglobin 12.3 g/dL (12.0-16.0); Mean Corpuscular Hemoglobin 26.9 pg (27.0-31.0); Mean Corpuscular Volume 86.8 fL (78.0-98.0); Mean Platelet Volume 6.8 fL (7.4-10.4); Platelet Count 371 thou/uL (130-400); RBC Distribution Width 16.1 % (11.5-14.5); Red Blood Cell (RBC) Count 4.56 mill/uL (4.20-5.40); White Blood Cell (WBC) Count 12.4 thou/uL (4.8-10.8)
[2020-07-26 07:54] LABS: ALT (SGPT) 10 U/L (8-55); AST (SGOT) 16 U/L (5-34); Alkaline Phosphatase 65 U/L (40-110); Anion Gap 15 mmol/L (10-20); BUN (Urea Nitrogen) 20 mg/dL (9.8-20.1); Bilirubin, Total 0.4 mg/dL (0.2-1.2); Calc. Creatinine Clearance 36 mL/min (70-130); Calcium 9.4 mg/dL (7.8-10.44); Carbon Dioxide 24 mmol/L (23-31); Chloride 97 mmol/L (98-107); Globulin 3.7 g/dL (2.4-3.5); Glucose 216 mg/dL (80-115); Magnesium 2.2 mg/dL (1.6-2.6); Potassium 4.2 mmol/L (3.5-5.1); Protein, Total 7.7 g/dL (6.0-8.3); Sodium 132 mmol/L (136-145)
[2020-07-26] MEDS: Enoxaparin Sodium 40 MG/0.4 ML SYRINGE SC SCH (08:07)
[2020-07-26] MEDS: Bacteriostatic Water 30 ML VIAL FS PRN (08:09)
[2020-07-26] MEDS: Pantoprazole 40 MG VIAL IVP SCH ×2 (08:15→21:26)
[2020-07-26 08:28] LABS: Band 3 % (5-11); Lymphocytes 13 % (21-51); MDiff Complete? YES; Monocytes 7 % (0-10); Neutrophil 77 % (42-75); RBC Morphology Normal
[2020-07-26] MEDS: Folic Acid 1 MG TAB PO SCH (08:28)
[2020-07-26] MEDS: guaiFENesin ER 600 MG TAB PO SCH (08:28)
[2020-07-26] MEDS: Multivit, Therapeutic 1 TAB PO SCH (08:28)
[2020-07-26] MEDS: Saccharomyces boulardii 250 MG CAP PO SCH (08:28)
[2020-07-26] MEDS: Cyanocobalamin (Vitamin B-12) 1,000 MCG TAB PO SCH (08:28)
[2020-07-26] MEDS ORDERED: PROPOFOL 200 MG/20 ML VIAL ONE (09:39)
[2020-07-26] MEDS ORDERED: Ondansetron PF 4 MG/2 ML Vial ONE (09:39)
[2020-07-26] MEDS ORDERED: Lidocaine 1% PF 5 ML VIAL ONE (09:39)
[2020-07-26] MEDS ORDERED: Rocuronium Bromide 10 MG/ML (10ML VIAL) ONE (09:39)
[2020-07-26] MEDS ORDERED: Diabetic Tussin 200 MG/10 ML UDCUP PO PRN (10:50)
[2020-07-26] MEDS: Dextrose 5 %-0.45 % NaCl 1,000 ML IV SCH ×2 (11:00)
[2020-07-26] MEDS ORDERED: Fentanyl 100 MCG/2 ML VIAL ONE ×2 (14:40→16:16)
[2020-07-26] MEDS ORDERED: SUGAMMADEX SODIUM 200 MG/2 ML VIAL ONE (14:40)
[2020-07-26] MEDS ORDERED: Bupivacaine 0.25% HCL 30 ML VIAL ONE (14:43)
[2020-07-26] MEDS ORDERED: EPINEPHrine 1 MG/ML AMP ONE (14:43)
[2020-07-26] MEDS ORDERED: Meperidine HCl/PF 25 MG/ML VIAL SLOW IVP PRN (15:31)
[2020-07-26] MEDS ORDERED: HYDROmorphone 2 MG/ML VIAL SLOW IVP PRN (15:31)
[2020-07-26] MEDS ORDERED: Promethazine HCl 25 MG/ML VIAL IM PRN (15:31)
[2020-07-26] MEDS ORDERED: Promethazine HCl 25 MG/ML VIAL SLOW IVP PRN (15:31)
[2020-07-26] MEDS ORDERED: Ondansetron HCl/PF 4 MG/2 ML Vial IVP PRN (15:31)
[2020-07-26] MEDS ORDERED: Fentanyl 100 MCG/2 ML VIAL SLOW IVP PRN ×2 (15:54)
--- NOTE | 2020-07-26 16:05 | CON ---
DATE OF CONSULTATION: 07/26/2020 REASON FOR CONSULTATION: Aspiration pneumonia, lung abscess. HISTORY OF PRESENT ILLNESS: A 65-year-old, who has a history of severe gastroparesis. The reason for the gastroparesis is not very clear. She has had evaluation by Gastroenterology and had an esophageal stricture identified following Gayla-Varela tear in the past. The gastroparesis diagnosis dates back to 2013. The first episode of pneumonia was diagnosed in July 2016, when she came in with a left lung inflammatory process. She had a bronchoscopy with bronchial washing and cultures positive for Achromobacter and Alcaligenes faecalis. There is cavitation associated with this area of inflammatory infiltrate. She had an extensive workup with autoimmune profile and tuberculosis testing, which was negative. Malignant cell evaluation was negative as well. In December 2016, she was admitted with intractable vomiting, probably secondary to her gastroparesis, and then the most recent admission in June of this year. The discharge diagnoses were aspiration pneumonia, lung abscess, gastroparesis, cachexia, and now, she comes in with basically persistence of the October process with worsening of the inflammatory process in left lung. Her last EGD showed abundant retained food products in her stomach and she was placed on liquid diet in the evening, but that then was not effective and so she is back. She is going to get a gastrostomy tube placed now. The patient has anorexia, which is a chronic problem. Some loose stool with frequent bowel movements. No chest pain. No abdominal pain. No genitourinary symptoms. No neurological symptoms. MEDICAL HISTORY: COPD; gastroparesis, severe; aspiration pneumonia with abscess formation; prior bronchoscopy which showed no evidence of malignancy in 2016, I believe or 2015, and evidence of infection by two different gram negatives; prior bilateral hip surgeries for fractures; hysterectomy; GERD; esophageal stricture; Gayla-Varela tear with upper GI bleeding; chronic smoking. SOCIAL HISTORY: Continues to smoke daily and does not drink alcoholic beverages. FAMILY HISTORY: Noncontributory. ALLERGIES: MORPHINE AND LEVOFLOXACIN. CURRENT MEDICATION LIST: Includes; 1. Inhalers. 2. Catapres. 3. Lovenox. 4. Folvite. 5. Mucinex. 6. Okay. 7. Cozaar. 8. Melatonin. 9. Solu-Medrol. 10. Meropenem. PHYSICAL EXAMINATION: VITAL SIGNS: T-max 98, blood pressure 130/70, heart rate 103, respirations 16, and O2 saturation 96 on room air. GENERAL: The patient does appear in distress. She appears chronically ill, cachectic. SKIN: Did not show any areas of skin breakdown. Peripheral IV access. No Porras catheter. No lymphadenopathy. HEENT: Temporal wasting noted. Ocular movements are conjugate. Oral cavity with a few missing teeth. Tongue papillae are atrophic. NECK: Supple. LUNGS: With scattered wheezing. There are diminished breath sounds on the left side, few crackles there. HEART: S1 and S2, regular rate. No S3 or S4. ABDOMEN: Soft. Not distended or tender. No ascites. No bladder distention. Abdomen is scaphoid. MUSCULOSKELETAL: No joint inflammatory activity. No edema. Pulses 1+ in dorsalis pedis. NEUROLOGIC: Nonfocal. LABORATORY DATA: White cell count 10.9 and 12.4, hemoglobin 10.6, platelets 329, with 73% neutrophils. INR 1.0. Sodium 135 and 132, creatinine is up from 1.1 to 1.4, GFR 136. Liver profile normal. Albumin is 4.0. SARS-CoV not detected. Chest CT shows a left upper lobe density, presumably fluid-filled central area, infiltrative changes in the lung around the area advanced slightly. More volume loss. Minimal patchy areas in the right lung. GE reflux with fluid-filled esophagus. ASSESSMENT: Chronic reflux, gastroparesis of unclear etiology since she is not diabetic. Recurrent aspiration, left lung aspiration pneumonia, cachexia due to the above. DISCUSSION: Diabetes mellitus type 2 and type 1 are the most common causes of gastroparesis due to neuropathy. Other conditions that can be associated in nondiabetic patients include surgical interventions, viral infection, Parkinson disease, collagen vascular disease, and intestinal pseudo-obstruction, but almost a 3rd of cases of gastroparesis in non-diabetics are "idiopathic." The microbiology of aspiration pneumonia lately has been identified as less associated with anaerobes and more often due to gram-negative rods, so I think in her case, I agree with the antimicrobial ordered, we will adjust for renal function and see what the outcome of the gastrostomy tube placement is. Pt has had a bronchoscopy, so I believe the diagnostic work up has been completed. In other words we are facing a pyogenic bacterial infection with necrotizing features associated with the aspiration of gastric content with likely gram-negative rods associated with it. Job ID: [id number] [facility]
[2020-07-26] MEDS: HYDROcodone/Acetaminophen 10/325 mg Tablet PO PRN ×2 (17:33→23:59)
--- NOTE | 2020-07-26 19:30 | PDOC.HOSPP ---
- Subjective Encounter Date: 07/26/20 Encounter Time: 09:00 Subjective: Patient seen and examined for lung abscess due to aspiration. Mild dry cough. Denies any other complaints. Mild generalized abdominal discomfort. - Objective Vital Signs & Weight: Vital Signs (12 hours) Temp Pulse Resp BP BP Pulse Ox 07/26/20 18:21 66 24 H 96 07/26/20 17:00 98.0 F 97 18 170/86 H 93 L 07/26/20 11:48 98.3 F 103 H 16 136/77 96 07/26/20 08:00 96 Weight Admit Weight 131 lb 1.6 oz Weight 131 lb 1.6 oz I&O: 07/25/20 07/26/20 07/27/20 06:59 06:59 06:59 Intake Total 1195 2115 120 Balance 1195 2115 120 Result Diagrams: 07/26/20 06:42 07/26/20 07:23 Radiology Reviewed by me: Yes (Chest CTreviewed) Hospitalist ROS - Review of Systems Cardiovascular: denies: chest pain, palpitations, orthopnea, paroxysmal noc. dyspnea, edema, light headedness, other Genitourinary: denies: dysuria, frequency, incontinence, hematuria, retention, other - Medication Medications: Active Medications Generic Name Dose Route Start Last Admin Trade Name Freq PRN Reason Stop Dose Admin Hydrocodone Bitart/Acetaminophen 1 tab 07/22/20 22:23 07/26/20 17:33 Hydrocodone/Acetaminophen 10/325 Mg Tablet PO 1 tab Q6H PRN Administration Moderate Pain (4-6) Albuterol/Ipratropium 3 ml 07/26/20 13:00 07/26/20 18:21 Ipratropium/Albuterol Sulfate 3 Ml Neb NEB 3 ml [id number] POLO Administration Cyanocobalamin 1,000 mcg 07/25/20 09:00 07/26/20 08:28 Cyanocobalamin (Vitamin B-12) 1,000 Mcg Tab PO 1,000 mcg DAILY POLO Administration Enoxaparin Sodium 40 mg 07/23/20 09:00 07/26/20 08:07 Enoxaparin Sodium 40 Mg/0.4 Ml Syringe SC Not Given 0900 POLO Folic Acid 1 mg 07/25/20 09:00 07/26/20 08:28 Folic Acid 1 Mg Tab PO 1 mg BID POLO Administration Meropenem 2 gm/ Sodium 100 mls @ 200 mls/hr 07/22/20 20:00 07/26/20 13:00 Chloride IVPB 100 mls 0400,1200,1999 POLO Administration Dextrose/Sodium Chloride 1,000 mls @ 50 mls/hr 07/26/20 09:28 07/26/20 11:00 D5 1/2 Ns IV 1,000 mls .Q20H POLO Administration Melatonin 3 mg 07/25/20 21:41 07/25/20 22:10 Melatonin 3 Mg Tab PO 3 mg HS PRN Administration Insomnia Methylprednisolone Sodium Succinate 20 mg 07/23/20 08:00 07/26/20 17:02 Methylprednisolone Sod Succ 40 Mg Vial IVP 20 mg 0200,0800,1400,1999 POLO Administration Metoclopramide HCl 10 mg 07/24/20 12:00 07/26/20 17:33 Metoclopramide Hcl 10 Mg/2 Ml Vial IVP 10 mg Q6H POLO Administration Multivitamins 1 tab 07/25/20 09:00 07/26/20 08:28 Multivit, Therapeutic 1 Tab PO 1 tab DAILY POLO Administration Ondansetron HCl 4 mg 07/23/20 18:30 07/24/20 06:35 Ondansetron Pf 4 Mg/2 Ml Vial IVP 4 mg Q4H PRN Administration Nausea/Vomiting Pantoprazole Sodium 40 mg 07/23/20 21:00 07/26/20 08:15 Pantoprazole 40 Mg Vial IVP 40 mg Q12HR POLO Administration Saccharomyces Boulardii 250 mg 07/25/20 09:00 07/26/20 08:28 Saccharomyces Boulardii 250 Mg Cap PO 250 mg DAILY POLO Administration Sterile Water 1 ml 07/23/20 08:15 07/26/20 08:09 Bacteriostatic Water 30 Ml Vial FS 1 ml PRN PRN Administration RECONSTITUTION - Exam General Appearance: ill appearing Heart: RRR, no gallops Respiratory: no wheezes, rhonchi Gastrointestinal: soft, no guarding, no rigidity Extremities: no cyanosis, no clubbing Hosp A/P - Plan DVT proph w/SCDs Aspiration pneumonia/lung abscess Chronic gastroparesis Large hiatal hernia COPD Hypertension Vitamin B12/folic acid deficiency GERD History of breast cancer CKD stage III Moderate protein calorie malnutrition Tobacco dependence Plan: Continue IV meropenem. G-tube today. Reduce IV fluid. Continue IV PPIs. Continue IV Solu-Medrol. Patient on Reglan. Consult upper caser for assistance with home J-tube feeding. Hold losartan. Continue amlodipine and other medications as above
--- NOTE | 2020-07-26 20:52 | PRG ---
DATE OF SERVICE: 07/26/2020 SUBJECTIVE: Ms. Alexander has pain at her surgical site. Otherwise, no acute complaints. She had a runny stool this morning x1. PHYSICAL EXAMINATION: VITAL SIGNS: Temperature 97.6, pulse 77, and blood pressure 146/74. GENERAL: She is in no acute distress. Awake and alert. LUNGS: Clear to auscultation bilaterally. HEART: Regular rate and rhythm without murmur. ABDOMEN: Soft. Bowel sounds are present. Shows a J-tube in place and midline incision, which appears healthy. EXTREMITIES: No lower extremity edema. IMPRESSION: Gastroparesis with chronic aspiration and large hiatal hernia. RECOMMENDATIONS: She underwent jejunostomy today. We will see how her symptoms progress as she tolerates the feeds once Surgery clears her to start using her tube. Job ID: [id number]
[2020-07-26] MEDS ORDERED: Amlodipine 5 MG TAB PO SCH (21:00)
[2020-07-26] MEDS ORDERED: Guaifenesin DM 100-10/5 ML UDCUP PO SCH (21:00)
[2020-07-26] MEDS ORDERED: Losartan 25 MG TAB PO SCH (21:00)
[2020-07-26] MEDS: Ondansetron PF 4 MG/2 ML Vial IVP PRN (21:26)
[2020-07-27] MEDS: Metoclopramide HCl 10 MG/2 ML VIAL IVP SCH ×5 (00:04→23:13)
[2020-07-27] MEDS: Atorvastatin Calcium 20 MG TAB PO SCH ×2 (00:35→21:02)
[2020-07-27] MEDS: diphenhydrAMINE 25 MG CAP PO SCH ×2 (00:35→21:02)
[2020-07-27] MEDS: guaiFENesin ER 600 MG TAB PO SCH ×3 (00:36→21:02)
[2020-07-27] MEDS: Folic Acid 1 MG TAB PO SCH ×3 (00:36→21:02)
[2020-07-27] MEDS: Ondansetron PF 4 MG/2 ML Vial IVP PRN (01:57)
[2020-07-27] MEDS: methylPREDNISolone Sod Succ 40 MG VIAL IVP SCH ×4 (01:59→21:03)
[2020-07-27] MEDS: Dextrose 5 %-0.45 % NaCl 1,000 ML IV SCH (05:09)
[2020-07-27] MEDS: Meropenem 2 GM in Sodium Chloride 0.9% 100 ML IVPB SCH ×4 (05:09→21:22)
[2020-07-27 06:31] LABS: #Eosinphils 0.1 thou/uL (0.0-0.7); #Lymphocytes 1.1 thou/uL (1.20-3.40); #Monocytes 0.9 thou/uL (0.11-0.59); #Neutrophils 14.8 thou/uL (1.40-6.50); %Basophils 0.1 % (0.0-1.0); %Eosinophils 0.4 % (0.0-10.0); %Lymphocytes 6.4 % (21.0-51.0); %Monocytes 5.1 % (0.0-10.0); Hemoglobin 12.9 g/dL (12.0-16.0); Mean Corpuscular HGB CONC 32.3 g/dL (32.0-36.0); Mean Corpuscular Hemoglobin 28.2 pg (27.0-31.0); Mean Corpuscular Volume 87.4 fL (78.0-98.0); Mean Platelet Volume 6.7 fL (7.4-10.4); Platelet Count 395 thou/uL (130-400); RBC Distribution Width 16.2 % (11.5-14.5); Red Blood Cell (RBC) Count 4.56 mill/uL (4.20-5.40); White Blood Cell (WBC) Count 16.8 thou/uL (4.8-10.8)
[2020-07-27 06:51] LABS: Anion Gap 17 mmol/L (10-20); BUN (Urea Nitrogen) 17 mg/dL (9.8-20.1); Calc. Creatinine Clearance 41 mL/min (70-130); Calcium 9.4 mg/dL (7.8-10.44); Carbon Dioxide 21 mmol/L (23-31); Chloride 95 mmol/L (98-107); Glucose 187 mg/dL (80-115); Potassium 3.8 mmol/L (3.5-5.1); Sodium 129 mmol/L (136-145)
--- NOTE | 2020-07-27 07:39 | PRG ---
DATE OF SERVICE: 07/26/2020 SUBJECTIVE: Brit Alexander is afebrile. OBJECTIVE: VITAL SIGNS: Heart rate 90, respiratory rate is 16, oximetry is 96% this morning on room air, blood pressure 153/77. LUNGS: Free of wheezes. HEART: Regular rhythm. ABDOMEN: IMPRESSION: 1. Chronic recurrent aspiration secondary to gastroparesis. 2. Left upper lobe infiltrate secondary to chronic recurrent aspiration, sleeping on her left side. 3. Chronic obstructive pulmonary disease, dramatically improved with steroids. She is on the schedule for feeding jejunostomy. I have explained the reasons for the procedure to the . He seemed pleased with the explanation. We will continue to follow. Job ID: [id number]
[2020-07-27] MEDS: HYDROcodone/Acetaminophen 10/325 mg Tablet PO PRN (10:11)
[2020-07-27] MEDS: Multivit, Therapeutic 1 TAB PO SCH (10:13)
[2020-07-27] MEDS: Cyanocobalamin (Vitamin B-12) 1,000 MCG TAB PO SCH (10:13)
[2020-07-27] MEDS: Saccharomyces boulardii 250 MG CAP PO SCH (10:13)
[2020-07-27] MEDS ORDERED: Ondansetron PF 4 MG/2 ML Vial IVP PRN (10:15)
[2020-07-27] MEDS ORDERED: Ondansetron ODT 4 MG TAB PO PRN (10:15)
[2020-07-27] MEDS: Pantoprazole 40 MG VIAL IVP SCH ×3 (10:15→21:02)
[2020-07-27] MEDS: Enoxaparin Sodium 40 MG/0.4 ML SYRINGE SC SCH (10:17)
[2020-07-27] MEDS ORDERED: Amlodipine 5 MG TAB PO SCH (10:30)
--- NOTE | 2020-07-27 11:36 | PRG ---
DATE OF SERVICE: 07/27/2020 SUBJECTIVE: Ms. Alexander is complaining of pain and nausea this morning. She had her G-tube port hooked up to gravity this morning. PHYSICAL EXAMINATION: Her wound is healing well. She is tender in the area of the incision. There is clear looking drainage in the G-tube bag. ASSESSMENT: gastrojejunostomy tube. PLAN: Can keep the G-tube port hooked to gravity bag and start feeds through the distal port. However, we will wait until her pain improves slightly, so may wait until tomorrow to start those tube feeds. We can start using it for medications now. We will change her pain medicine to Lortab elixir, so we can get that through the distal J-tube port. She is without IV access now. If not able to get midline, would go ahead and order and get a PICC line today. Job ID: [id number]
[2020-07-27] MEDS: Bacteriostatic Water 30 ML VIAL FS PRN (12:41)
[2020-07-27] MEDS: Hydrocodone-Acetamin 15 ML UDCUP PO PRN ×2 (16:45→23:14)
--- NOTE | 2020-07-27 19:12 | PRG ---
DATE OF SERVICE: 07/27/2020 SUBJECTIVE: Brit Alexander had some abdominal discomfort this morning that resolved with pain medication. She denies shortness of breath. We are not using a feeding tube yet per my discussion with Dr. Munoz. OBJECTIVE: LUNGS: Clear. She is not wheezing. HEART: Regular rhythm. ABDOMEN: Soft, nontender. EXTREMITIES: Without edema. IMPRESSION: 1. Status post placement of a jejunostomy tube. 2. Chronic recurring aspiration leading to chronic recurrent left upper lobe infiltrates. Once she has functional she can be treated with p.o. antimicrobial therapy in my opinion. Job ID: [id number]
--- NOTE | 2020-07-27 21:48 | PRG ---
DATE OF SERVICE: 07/27/2020 REASON FOR CONSULTATION: Gastroparesis, now status post J-tube placement. SUBJECTIVE: Overnight, the patient had significantly increased nausea and abdominal pain centered around the site of her J-tube site. However, with administration of both narcotic medications and Zofran, the patient was doing much better later on today. Tube feeds have not yet started through the jejunostomy tube as of yet due to the increased nausea and abdominal pain that she experienced this morning with plans to start that tomorrow. Otherwise, she currently denies any nausea, vomiting, fevers, chills, hematemesis, melena, or hematochezia. OBJECTIVE: VITAL SIGNS: Temperature 98, pulse 93, blood pressure 90/63, respiratory rate 18, and saturating 96% on room air. GENERAL: The patient was lying in bed, in no acute distress. Alert and oriented x4. CARDIOVASCULAR: Regular rate and rhythm. RESPIRATORY: Clear to auscultation bilaterally. ABDOMEN: Normoactive bowel sounds. Soft, nondistended, mild tenderness to palpation in the left upper quadrant and left lower quadrant around the J-tube site. NG tube wound site is clean, dry, and intact with no evidence of purulence or wound breakdown. EXTREMITIES: No cyanosis, clubbing, or edema. LABORATORY DATA: CBC with a white blood cell count of 16.8, hemoglobin 12.9, hematocrit 39.8, platelets 395. Chemistry with a sodium of 129, potassium 3.8, chloride 95, CO2 of 21, BUN 17, creatinine 1.27, and glucose 187. IMAGING DATA: No current GI imaging is available for review. ASSESSMENT AND PLAN: The patient is a 65-year-old female with past medical history of chronic obstructive pulmonary disease, gastroesophageal reflux disease, esophageal stricture, Agyla-Varela tear, tobacco abuse, and severe gastroparesis resulting in recurrent aspiration pneumonia, again presenting with recurrent aspiration pneumonia presumed secondary to her gastroparesis, now status post jejunostomy tube as part of treatment. Gastroparesis: The patient is presenting with a longstanding history of gastroparesis with no clear etiology per chart review, but complicated by recurrent episodes of aspiration pneumonia either due to the gastroparesis. The large hiatal hernia seen on most recent upper endoscopy or combination of the two. With these recurrent episodes of aspiration pneumonia and with failure to more conservative management (metoclopramide and eating smaller more frequent meals throughout the day), the patient ultimately underwent jejunostomy placement on July 26, 2020 as part of attempts to bypass the stomach and provide adequate nutrition for the patient. In the postoperative setting, the patient experienced increased abdominal pain and nausea, but has now currently controlled with more conservative management. At this time, the plan is to start her tube feeds through the jejunostomy tomorrow and evaluate for response. RECOMMENDATIONS: 1. Agree with General Surgery Service in starting her tube feeds tomorrow. We would recommend starting at a slower rate and then working up to goal per dietary recommendations. 2. Can use metoclopramide as a prokinetic, although its use on the small intestine is somewhat limited. 3. We will continue the patient on PPI 40 mg IV b.i.d. for the time being given that the patient still has gastroparesis and a large hiatal hernia, which could predispose her to reflux. 4. Antibiotics per Pulmonary Service. 5. Pain control per primary team, although we would attempt to minimize narcotic administration given that it can slow GI motility and worsen abdominal pain/bloating. At this point, we do not have any additional recommendations and we will follow peripherally for now. Please call with any questions. Job ID: [id number]
--- NOTE | 2020-07-27 22:41 | PDOC.HOSPP ---
- Subjective Encounter Date: 07/27/20 Encounter Time: 11:30 Subjective: Patient seen and examined for lung abscess due to aspiration. G-tube placed today. Some discomfort over the surgical site. Had some nausea this morning. Denies any other complaints. - Objective Vital Signs & Weight: Vital Signs (12 hours) Temp Pulse Resp BP BP Pulse Ox 07/27/20 19:20 98.0 F 93 18 90/63 96 07/27/20 19:07 98 18 93 L 07/27/20 16:00 98.2 F 106 H 18 125/79 91 L 07/27/20 13:56 109 H 20 95 07/27/20 12:36 109 H 125/77 07/27/20 11:53 98.1 F 109 H 18 128/77 95 Weight Admit Weight 131 lb 1.6 oz Weight 131 lb 1.6 oz I&O: 07/26/20 07/27/20 07/28/20 06:59 06:59 06:59 Intake Total 2115 1050 1000 Output Total 450 Balance 2115 1050 550 Result Diagrams: 07/28/20 05:28 07/27/20 05:53 Hospitalist ROS - Review of Systems Respiratory: denies: cough, dry, shortness of breath, hemoptysis, SOB with excertion, pleuritic pain, sputum, wheezing, other Cardiovascular: denies: chest pain, palpitations, orthopnea, paroxysmal noc. dyspnea, edema, light headedness, other - Medication Medications: Active Medications Generic Name Dose Route Start Last Admin Trade Name Freq PRN Reason Stop Dose Admin Hydrocodone Bitart/Acetaminophen 15 ml 07/27/20 10:30 07/27/20 16:45 Hydrocodone-Acetamin 15 Ml Udcup PO 15 ml Q6H PRN Administration Mild-Moderate Pain (1-5) Albuterol/Ipratropium 3 ml 07/26/20 13:00 07/27/20 19:07 Ipratropium/Albuterol Sulfate 3 Ml Neb NEB 3 ml [id number] POLO Administration Atorvastatin Calcium 20 mg 07/26/20 21:00 07/27/20 21:02 Atorvastatin Calcium 20 Mg Tab PO 20 mg HS POLO Administration Cyanocobalamin 1,000 mcg 07/25/20 09:00 07/27/20 10:13 Cyanocobalamin (Vitamin B-12) 1,000 Mcg Tab PO 1,000 mcg DAILY POLO Administration Diphenhydramine HCl 25 mg 07/26/20 21:00 07/27/20 21:02 Diphenhydramine 25 Mg Cap PO 25 mg HS POLO Administration Enoxaparin Sodium 40 mg 07/23/20 09:00 07/27/20 10:17 Enoxaparin Sodium 40 Mg/0.4 Ml Syringe SC Not Given 0900 POLO Folic Acid 1 mg 07/25/20 09:00 07/27/20 21:02 Folic Acid 1 Mg Tab PO 1 mg BID POLO Administration Guaifenesin 600 mg 07/26/20 21:00 07/27/20 21:02 Guaifenesin Er 600 Mg Tab PO 600 mg Q12HR POLO Administration Meropenem 2 gm/ Sodium 100 mls @ 200 mls/hr 07/22/20 20:00 07/27/20 21:22 Chloride IVPB 100 mls 0400,1200,2000 POLO Administration Dextrose/Sodium Chloride 1,000 mls @ 50 mls/hr 07/26/20 09:28 07/27/20 05:09 D5 1/2 Ns IV 1,000 mls .Q20H POLO Administration Melatonin 3 mg 07/25/20 21:41 07/25/20 22:10 Melatonin 3 Mg Tab PO 3 mg HS PRN Administration Insomnia Methylprednisolone Sodium Succinate 20 mg 07/23/20 08:00 07/27/20 21:03 Methylprednisolone Sod Succ 40 Mg Vial IVP 20 mg 0200,0800,1400,2000 POLO Administration Metoclopramide HCl 10 mg 07/24/20 12:00 07/27/20 17:12 Metoclopramide Hcl 10 Mg/2 Ml Vial IVP 10 mg Q6H POLO Administration Multivitamins 1 tab 07/25/20 09:00 07/27/20 10:13 Multivit, Therapeutic 1 Tab PO 1 tab DAILY POLO Administration Pantoprazole Sodium 40 mg 07/23/20 21:00 07/27/20 21:02 Pantoprazole 40 Mg Vial IVP 40 mg Q12HR POLO Administration Saccharomyces Boulardii 250 mg 07/25/20 09:00 07/27/20 10:13 Saccharomyces Boulardii 250 Mg Cap PO 250 mg DAILY POLO Administration Sodium Chloride 10 ml 07/26/20 21:00 11/12/20 21:23 Flush - Normal Saline 10 Ml Syringe IVF 10 ml Q12HR POLO Administration Sodium Chloride 10 ml 07/26/20 11:00 07/27/20 05:08 Flush - Normal Saline 10 Ml Syringe IVF 10 ml PRN PRN Administration Saline Flush Sterile Water 1 ml 07/23/20 08:15 07/27/20 12:41 Bacteriostatic Water 30 Ml Vial FS 1 ml PRN PRN Administration RECONSTITUTION - Exam General Appearance: ill appearing Neck: supple, no JVD Heart: no gallops, no rubs Respiratory: normal chest expansion, rhonchi Gastrointestinal: soft, non-tender Extremities: no cyanosis Musculoskeletal: generalized weakness Psychiatric: A&O x 3 Hosp A/P - Plan DVT proph w/SCDs Aspiration pneumonia/lung abscess Chronic gastroparesis Large hiatal hernia COPD Hypertension Vitamin B12/folic acid deficiency GERD History of breast cancer CKD stage III Moderate protein calorie malnutrition Tobacco dependence Plan: Clear liquid diet. Continue IV meropenem for lung abscess. Start G-tube feeding probably tomorrow. Continue IV steroids. Continue other medications as above. Continue PPIs. A.m. labs
[2020-07-28] MEDS: methylPREDNISolone Sod Succ 40 MG VIAL IVP SCH ×4 (02:42→20:54)
[2020-07-28] MEDS: Dextrose 5 %-0.45 % NaCl 1,000 ML IV SCH (02:44)
[2020-07-28] MEDS: Meropenem 2 GM in Sodium Chloride 0.9% 100 ML IVPB SCH ×2 (03:39→12:10)
[2020-07-28] MEDS: Metoclopramide HCl 10 MG/2 ML VIAL IVP SCH ×4 (05:10→23:19)
[2020-07-28] MEDS: Hydrocodone-Acetamin 15 ML UDCUP PO PRN ×3 (05:56→23:11)
[2020-07-28 06:13] LABS: #Eosinphils 0.1 thou/uL (0.0-0.7); #Lymphocytes 1.1 thou/uL (1.20-3.40); #Monocytes 0.6 thou/uL (0.11-0.59); #Neutrophils 13.2 thou/uL (1.40-6.50); %Basophils 0.1 % (0.0-1.0); %Eosinophils 0.9 % (0.0-10.0); %Lymphocytes 7.4 % (21.0-51.0); %Monocytes 3.7 % (0.0-10.0); %Neutrophils 87.9 % (42.0-75.0); Hemoglobin 13.3 g/dL (12.0-16.0); Mean Corpuscular HGB CONC 32.5 g/dL (32.0-36.0); Mean Corpuscular Hemoglobin 27.8 pg (27.0-31.0); Mean Corpuscular Volume 85.6 fL (78.0-98.0); Mean Platelet Volume 6.7 fL (7.4-10.4); Platelet Count 465 thou/uL (130-400); RBC Distribution Width 16.8 % (11.5-14.5); Red Blood Cell (RBC) Count 4.77 mill/uL (4.20-5.40)
[2020-07-28 06:35] LABS: Anion Gap 19 mmol/L (10-20); BUN (Urea Nitrogen) 20 mg/dL (9.8-20.1); Calc. Creatinine Clearance 36 mL/min (70-130); Calcium 9.3 mg/dL (7.8-10.44); Carbon Dioxide 20 mmol/L (23-31); Chloride 97 mmol/L (98-107); Glucose 188 mg/dL (80-115); Potassium 4.4 mmol/L (3.5-5.1); Sodium 132 mmol/L (136-145)
--- NOTE | 2020-07-28 08:20 | EKG ---
Test Reason : ROUTINE Blood Pressure : / mmHG Vent. Rate : 086 BPM Atrial Rate : 086 BPM P-R Int : 128 ms QRS Dur : 084 ms QT Int : 366 ms P-R-T Axes : 023 042 061 degrees QTc Int : 437 ms Normal sinus rhythm Normal ECG Confirmed by SHANNEN FROST MD ([id number]) on 07/28/2020 8:20:05 AM Referred By: AVINASH Confirmed By:SHANNEN FROST MD
[2020-07-28] MEDS: Enoxaparin Sodium 40 MG/0.4 ML SYRINGE SC SCH (08:44)
[2020-07-28] MEDS: Folic Acid 1 MG TAB PO SCH ×2 (08:45→20:55)
[2020-07-28] MEDS: Saccharomyces boulardii 250 MG CAP PO SCH (08:45)
[2020-07-28] MEDS: guaiFENesin ER 600 MG TAB PO SCH ×2 (08:45→20:56)
[2020-07-28] MEDS: Cyanocobalamin (Vitamin B-12) 1,000 MCG TAB PO SCH (08:45)
[2020-07-28] MEDS: Multivit, Therapeutic 1 TAB PO SCH (08:45)
[2020-07-28] MEDS: Amlodipine 5 MG TAB PO SCH (08:45)
[2020-07-28] MEDS: Pantoprazole 40 MG VIAL IVP SCH ×2 (08:46→20:56)
[2020-07-28] MEDS: Bacteriostatic Water 30 ML VIAL FS PRN (08:46)
--- NOTE | 2020-07-28 13:58 | PRG ---
DATE OF SERVICE: 07/28/2020 SUBJECTIVE: Monoclonal antibody for COVID outpatient treatmemt. Brit Alexander is improved. Dr. Munoz is okay to use her J-tube. OBJECTIVE: VITAL SIGNS: She is afebrile. Heart rate is 99, respiratory rates in the teens, oximetry is 92% to 95% on room air. LUNGS: Unchanged. HEART: Unchanged. ABDOMEN: Unchanged. PLAN: We will start her on enteral antimicrobial therapy and enteral steroids. She is close to a point where she can be discharged if her G-tube is functional. Job ID: [id number]
--- NOTE | 2020-07-28 14:18 | PRG ---
DATE OF SERVICE: 07/28/2020 SUBJECTIVE: Ms. Alexander feels much better today. She has a lot of bile draining into her G-tube bag. They are finding the connector for the jejunal tube to start feeds. OBJECTIVE: Her wounds are healing well. 5 mL of saline was taken out of her balloon in the stomach. This will help with her pain. ASSESSMENT: gastrojejunal tube. PLAN: Discharge home with jejunal feeds. Very important they feed through the jejunal port, not the G-tube port. Follow up with me [place] Job ID: [id number]
--- NOTE | 2020-07-28 14:25 | PRG ---
DATE OF SERVICE: 07/28/2020 SUBJECTIVE: The patient had what appears to be a jejunostomy tube placed by Dr. Munoz. She is feeling much better. OBJECTIVE: LUNGS: With some crackles, particularly on the left side and decreased breath sounds there. No chest pain. HEART: S1 and S2, regular rate. ABDOMEN: Mildly tender around the incision for the tube placement. VITAL SIGNS: Afebrile, saturating at 92 to 95 on room air. LABORATORY DATA: White cell count is 15, hemoglobin 13, platelets 465, and 87% neutrophils. Creatinine 1.44, glucose 188. Microbiology, we do not have any positivity in blood cultures. ASSESSMENT AND DISCUSSION: Chronic reflux, gastroparesis of uncertain etiology, recurrent aspiration of left lung with pneumonia and abscess formation, cachexia. After the procedure, could consider transitioning to oral third generation cephalosporin, either cefdinir or cefpodoxime, and I would treat for a long period of time, probably 4 weeks. Follow up chest x-ray. May consider adding anaerobic coverage with Flagyl or Augmentin or clindamycin. There is a risk of failure of treatment, although this is not high, she could potentially have a resistant gram-negative hoang that is causing the process there. In that case, we would see a recrudescence of the inflammatory process. In that case, PICC line placement and protracted IV meropenem would be the next step. Job ID: [id number]
--- NOTE | 2020-07-28 15:32 | OP ---
DATE OF PROCEDURE: 07/26/2020 PREOPERATIVE DIAGNOSES: Protein-calorie malnutrition, history of aspiration, chronic lung abscess. POSTOPERATIVE DIAGNOSES: Protein-calorie malnutrition, history of aspiration, chronic lung abscess. PROCEDURE PERFORMED: Feeding gastrojejunal tube (Mccoy tube). ANESTHESIA: General. ESTIMATED BLOOD LOSS: Minimal. COMPLICATIONS: None. DESCRIPTION OF PROCEDURE: The patient was taken to the operating room and laid supine on the operating room table. After general anesthetic was obtained, the abdomen was prepped and draped in a sterile fashion. Upper midline incision was made. Cautery was dissected down into the abdomen. The stomach was very dilated. There was a history of gastroparesis. Pursestring of silk was placed on the distal greater curve. A gastrotomy was made through here. The Mccoy gastrojejunal tube was brought in through a left upper quadrant stab incision. It was placed in the gastrotomy. The pursestring was tied down. The end jejunal tube was past the pylorus around the duodenal loop. The balloon was inflated holding the gastric lumen of the tube in the stomach. It was pulled up against the posterior abdominal wall. An additional pursestring of interrupted serosal silk suture was placed. The wire was removed. The fascia was closed using #1 PDS from the top and bottom and tied in the middle. Subcutaneous tissues were irrigated copiously and the skin was closed using 3-0 Vicryl, 4-0 Monocryl, and Dermabond. The patient was sent to Recovery in stable condition. All instrument counts, needle counts, and lap counts were correct. Job ID: [id number]
--- NOTE | 2020-07-28 19:31 | PDOC.HOSPP ---
- Subjective Encounter Date: 07/28/20 Encounter Time: 10:00 Subjective: Patient seen and examined for lung abscess due to aspiration. Abdominal pain improving. Denies any nausea or fever. - Objective Vital Signs & Weight: Vital Signs (12 hours) Temp Pulse Resp BP BP BP BP 07/28/20 19:18 98.4 F 109 H 20 118/73 07/28/20 18:22 101 H 16 07/28/20 15:30 98.3 F 111 H 16 118/72 07/28/20 13:07 99 18 07/28/20 12:06 98.5 F 114 H 15 107/77 07/28/20 08:45 95 134/89 07/28/20 08:40 07/28/20 07:50 95 18 07/28/20 07:33 98.7 F 100 17 134/89 Pulse Ox 07/28/20 19:18 100 07/28/20 18:22 94 L 07/28/20 15:30 96 07/28/20 13:07 92 L 07/28/20 12:06 95 07/28/20 08:45 07/28/20 08:40 100 07/28/20 07:50 94 L 07/28/20 07:33 95 Weight Admit Weight 131 lb 1.6 oz Weight 131 lb 1.6 oz I&O: 07/27/20 07/28/20 07/29/20 06:59 06:59 06:59 Intake Total 1050 1000 2840 Output Total 450 825 Balance 3667 517 2229 Result Diagrams: 07/28/20 05:28 07/28/20 05:28 Hospitalist ROS - Review of Systems Respiratory: denies: cough, dry, shortness of breath, hemoptysis, SOB with excertion, pleuritic pain, sputum, wheezing, other Cardiovascular: denies: chest pain, palpitations, orthopnea, paroxysmal noc. dyspnea, edema, light headedness, other - Medication Medications: Active Medications Generic Name Dose Route Start Last Admin Trade Name Freq PRN Reason Stop Dose Admin Hydrocodone Bitart/Acetaminophen 15 ml 07/27/20 10:30 07/28/20 14:11 Hydrocodone-Acetamin 15 Ml Udcup PO 15 ml Q6H PRN Administration Mild-Moderate Pain (1-5) Albuterol/Ipratropium 3 ml 07/26/20 13:00 07/28/20 18:22 Ipratropium/Albuterol Sulfate 3 Ml Neb NEB 3 ml [id number] POLO Administration Amlodipine Besylate 5 mg 07/28/20 09:00 07/28/20 08:45 Amlodipine 5 Mg Tab PO 5 mg DAILY POLO Administration Atorvastatin Calcium 20 mg 07/26/20 21:00 07/27/20 21:02 Atorvastatin Calcium 20 Mg Tab PO 20 mg HS POLO Administration Cyanocobalamin 1,000 mcg 07/25/20 09:00 07/28/20 08:45 Cyanocobalamin (Vitamin B-12) 1,000 Mcg Tab PO 1,000 mcg DAILY POLO Administration Diphenhydramine HCl 25 mg 07/26/20 21:00 07/27/20 21:02 Diphenhydramine 25 Mg Cap PO 25 mg HS POLO Administration Enoxaparin Sodium 40 mg 07/23/20 09:00 07/28/20 08:44 Enoxaparin Sodium 40 Mg/0.4 Ml Syringe SC 40 mg 0900 POLO Administration Folic Acid 1 mg 07/25/20 09:00 07/28/20 08:45 Folic Acid 1 Mg Tab PO 1 mg BID POLO Administration Guaifenesin 600 mg 07/26/20 21:00 07/28/20 08:45 Guaifenesin Er 600 Mg Tab PO 600 mg Q12HR POLO Administration Dextrose/Sodium Chloride 1,000 mls @ 50 mls/hr 07/26/20 09:28 07/28/20 02:44 D5 1/2 Ns IV 1,000 mls .Q20H POLO Administration Melatonin 3 mg 07/25/20 21:41 07/25/20 22:10 Melatonin 3 Mg Tab PO 3 mg HS PRN Administration Insomnia Methylprednisolone Sodium Succinate 20 mg 07/23/20 08:00 07/28/20 14:12 Methylprednisolone Sod Succ 40 Mg Vial IVP 20 mg 0200,0800,1400,2000 PLOO Administration Metoclopramide HCl 10 mg 07/24/20 12:00 07/28/20 17:30 Metoclopramide Hcl 10 Mg/2 Ml Vial IVP 10 mg Q6H POLO Administration Multivitamins 1 tab 07/25/20 09:00 07/28/20 08:45 Multivit, Therapeutic 1 Tab PO 1 tab DAILY POLO Administration Pantoprazole Sodium 40 mg 07/23/20 21:00 07/28/20 08:46 Pantoprazole 40 Mg Vial IVP 40 mg Q12HR POLO Administration Saccharomyces Boulardii 250 mg 07/25/20 09:00 07/28/20 08:45 Saccharomyces Boulardii 250 Mg Cap PO 250 mg DAILY POLO Administration Sodium Chloride 10 ml 07/26/20 21:00 07/28/20 08:46 Flush - Normal Saline 10 Ml Syringe IVF 10 ml Q12HR POLO Administration Sodium Chloride 10 ml 07/26/20 11:00 07/27/20 05:08 Flush - Normal Saline 10 Ml Syringe IVF 10 ml PRN PRN Administration Saline Flush Sterile Water 1 ml 07/23/20 08:15 07/28/20 08:46 Bacteriostatic Water 30 Ml Vial FS 1 ml PRN PRN Administration RECONSTITUTION - Exam General Appearance: NAD Heart: RRR, no gallops Respiratory: no wheezes, no ronchi Gastrointestinal: soft, no guarding, no rigidity Extremities: no cyanosis Neurological: no new deficit Hosp A/P - Plan DVT proph w/SCDs Aspiration pneumonia/lung abscess Chronic gastroparesis Large hiatal hernia COPD Hypertension Vitamin B12/folic acid deficiency GERD History of breast cancer CKD stage III Moderate protein calorie malnutrition Tobacco dependence Plan: Start tube feeding today. Continue IV meropenem with IV Solu-Medrol. Change to oral antibiotics at discharge discontinue IV fluid once tolerating tube feeding. Continue IV PPIs. Continue clear liquid diet. Ambulate. Home health care set up for tube feeding. Continue amlodipine, Lipitor and other medications as above. Nebulizer treatments
[2020-07-28] MEDS: Cefdinir 300 MG CAP PO SCH (20:55)
[2020-07-28] MEDS: diphenhydrAMINE 25 MG CAP PO SCH (20:55)
[2020-07-28] MEDS: Atorvastatin Calcium 20 MG TAB PO SCH (20:55)
--- NOTE | 2020-07-28 21:20 | PRG ---
DATE OF SERVICE: 07/28/2020 REASON FOR CONSULTATION: Gastroparesis, now status post J-tube placement. SUBJECTIVE: Today, Dr. Munoz evaluated the J-tube, feeding tube, and deflated the internal balloon approximately 5 mL with increased comfort with this particular maneuver. She was subsequently started on her J-tube feedings and has been able to tolerate them thus far without difficulty with the current rate of infusion at approximately 20 mL/h. She states that the previous experience of nausea and vomiting have completely resolved. She does continue to have some mild abdominal pain around the wound site for the J-tube, but otherwise is doing well. Currently, she denies any nausea, vomiting, fevers, chills, hematemesis, melena, or hematochezia. OBJECTIVE: VITAL SIGNS: Temperature 98.4, pulse 109, blood pressure 118/73, respiratory rate 20, saturating 100% on room air. GENERAL: The patient is lying in bed, in no acute distress. Alert and oriented x4. CARDIOVASCULAR: Regular rate and rhythm. RESPIRATORY: Clear to auscultation in the right lung rand with possible mild crackles in the left lower lung base. ABDOMEN: Normoactive bowel sounds. Soft, nondistended. Mildly tender around the J-tube site in the left upper quadrant. EXTREMITIES: No cyanosis, clubbing, or edema. LABORATORY DATA: CBC with a white blood cell count of 15, hemoglobin 13.3, hematocrit 40.8, platelets 465. Chemistry with sodium of 132, potassium 4.4, chloride 97, CO2 of 20, BUN 20, creatinine 1.44, glucose 188. IMAGING DATA: No current GI imaging is available for review. ASSESSMENT AND PLAN: The patient is a 65-year-old female with past medical history of chronic obstructive pulmonary disease, gastroesophageal reflux disease, esophageal stricture, Gayla-Varela tear, tobacco abuse, and severe gastroparesis resulting in recurrent aspiration pneumonia. Again, presenting with a recurrent aspiration pneumonia, presumed secondary to gastroparesis, now status post jejunostomy tube. Gastroparesis. The patient is presenting with a longstanding history of gastroparesis complicated by recurrent episodes of aspiration pneumonia either due to gastroparesis itself for the large hiatal hernia seen on the most recent upper endoscopy. With recurrent episodes of aspiration pneumonia and failure to thrive and failure to more conservative management (metoclopramide), the patient ultimately underwent jejunostomy placement on July 26, 2020. In the postoperative setting, the patient experienced increased abdominal pain and nausea, but this has subsequently resolved and the patient is now currently tolerating tube feeds at approximately 20 mL/h. Based on her current clinical status, she is tolerating tube feeds well with no immediate complications. RECOMMENDATIONS: 1. We will continue to advance the patient's tube feeds to goal rate per dietary recommendations. 2. Can continue to use metoclopramide as a prokinetic, although it was used on the . 3. Continue PPI 40 mg IV b.i.d. 4. Antibiotics per Pulmonary/Infectious Disease Services. 5. Pain control per primary team. At this time, we have no additional recommendations and we will sign off. Please call with any additional questions. Job ID: [id number]
[2020-07-29] MEDS: Dextrose 5 %-0.45 % NaCl 1,000 ML IV SCH ×2 (00:21→16:38)
[2020-07-29] MEDS: methylPREDNISolone Sod Succ 40 MG VIAL IVP SCH (03:33)
[2020-07-29] MEDS: Metoclopramide HCl 10 MG/2 ML VIAL IVP SCH ×3 (06:03→17:30)
[2020-07-29] MEDS: Hydrocodone-Acetamin 15 ML UDCUP PO PRN ×2 (07:34→21:21)
[2020-07-29] MEDS: Enoxaparin Sodium 40 MG/0.4 ML SYRINGE SC SCH (08:49)
--- NOTE | 2020-07-29 08:49 | PRG ---
DATE OF SERVICE: 07/28/2020 SUBJECTIVE: Ms. Alexander is complaining more cramping in her abdomen. This morning, her tube feeds 45 mL an hour. PHYSICAL EXAMINATION: Her G-tube output is more bilious this morning that goes along with her not tolerating the tube feeds very well. ASSESSMENT: Status post Mccoy tube placement. Continue J-tube feeds as tolerated. Home when tolerating better. Follow up with me after discharge in 2 weeks. Job ID: [id number]
[2020-07-29] MEDS: Pantoprazole 40 MG VIAL IVP SCH ×2 (08:50→21:23)
[2020-07-29] MEDS ORDERED: Ondansetron PF 4 MG/2 ML Vial IVP SCH (09:45)
[2020-07-29] MEDS: Folic Acid 1 MG TAB PO SCH ×2 (11:00→21:22)
[2020-07-29] MEDS: Cyanocobalamin (Vitamin B-12) 1,000 MCG TAB PO SCH (11:00)
[2020-07-29] MEDS: Multivit, Therapeutic 1 TAB PO SCH (11:00)
[2020-07-29] MEDS: Amlodipine 5 MG TAB PO SCH (11:00)
[2020-07-29] MEDS: Cefdinir 300 MG CAP PO SCH ×2 (11:00→21:22)
[2020-07-29] MEDS: guaiFENesin ER 600 MG TAB PO SCH ×2 (11:00→21:22)
[2020-07-29] MEDS: Saccharomyces boulardii 250 MG CAP PO SCH (11:01)
[2020-07-29] MEDS: predniSONE 20 MG TAB PO SCH (11:01)
--- NOTE | 2020-07-29 13:35 | PDOC.HOSPP ---
- Subjective Encounter Date: 07/29/20 Encounter Time: 09:45 Subjective: is amb in room with the iv pole no nausea, feels better, no sob - Objective Vital Signs & Weight: Vital Signs (12 hours) Temp Pulse Resp BP BP Pulse Ox 07/29/20 11:35 98.2 F 90 18 144/81 H 91 L 07/29/20 11:00 95 166/77 H 07/29/20 07:42 95 16 92 L 07/29/20 07:30 97.4 F L 95 20 159/84 H 92 L Weight Admit Weight 131 lb 1.6 oz Weight 131 lb 1.6 oz I&O: 07/28/20 07/29/20 07/30/20 06:59 06:59 06:59 Intake Total 1000 3340 Output Total 450 1075 350 Balance 550 2265 -350 Result Diagrams: 07/28/20 05:28 07/28/20 05:28 Hospitalist ROS - Medication Medications: Active Medications Generic Name Dose Route Start Last Admin Trade Name Freq PRN Reason Stop Dose Admin Hydrocodone Bitart/Acetaminophen 15 ml 07/27/20 10:30 07/29/20 07:34 Hydrocodone-Acetamin 15 Ml Udcup PO 15 ml Q6H PRN Administration Mild-Moderate Pain (1-5) Albuterol/Ipratropium 3 ml 07/26/20 13:00 07/29/20 07:42 Ipratropium/Albuterol Sulfate 3 Ml Neb NEB 3 ml [id number] POLO Administration Amlodipine Besylate 5 mg 07/28/20 09:00 07/29/20 11:00 Amlodipine 5 Mg Tab PO 5 mg DAILY POLO Administration Atorvastatin Calcium 20 mg 07/26/20 21:00 07/28/20 20:55 Atorvastatin Calcium 20 Mg Tab PO 20 mg HS POLO Administration Cefdinir 300 mg 07/28/20 21:00 07/29/20 11:00 Cefdinir 300 Mg Cap PO 300 mg BID POLO Administration Cyanocobalamin 1,000 mcg 07/25/20 09:00 07/29/20 11:00 Cyanocobalamin (Vitamin B-12) 1,000 Mcg Tab PO 1,000 mcg DAILY POLO Administration Diphenhydramine HCl 25 mg 07/26/20 21:00 07/28/20 20:55 Diphenhydramine 25 Mg Cap PO 25 mg HS POLO Administration Enoxaparin Sodium 40 mg 07/23/20 09:00 07/29/20 08:49 Enoxaparin Sodium 40 Mg/0.4 Ml Syringe SC 40 mg 0900 POLO Administration Fentanyl 50 mcg 07/26/20 15:54 07/29/20 10:02 Fentanyl 100 Mcg/2 Ml Vial SLOW IVP 50 mcg Q2H PRN Administration Moderate to Severe Pain (6-10) Folic Acid 1 mg 07/25/20 09:00 07/29/20 11:00 Folic Acid 1 Mg Tab PO 1 mg BID POLO Administration Guaifenesin 600 mg 07/26/20 21:00 07/29/20 11:00 Guaifenesin Er 600 Mg Tab PO 600 mg Q12HR POLO Administration Dextrose/Sodium Chloride 1,000 mls @ 50 mls/hr 07/26/20 09:28 07/29/20 00:21 D5 1/2 Ns IV 1,000 mls .Q20H POLO Administration Melatonin 3 mg 07/25/20 21:41 07/25/20 22:10 Melatonin 3 Mg Tab PO 3 mg HS PRN Administration Insomnia Metoclopramide HCl 10 mg 07/24/20 12:00 07/29/20 12:23 Metoclopramide Hcl 10 Mg/2 Ml Vial IVP 10 mg Q6H POLO Administration Multivitamins 1 tab 07/25/20 09:00 07/29/20 11:00 Multivit, Therapeutic 1 Tab PO 1 tab DAILY POLO Administration Pantoprazole Sodium 40 mg 07/23/20 21:00 07/29/20 08:50 Pantoprazole 40 Mg Vial IVP 40 mg Q12HR POLO Administration Prednisone 20 mg 07/29/20 08:00 07/29/20 11:01 Prednisone 20 Mg Tab PO 20 mg QAM-WM POLO Administration Saccharomyces Boulardii 250 mg 07/25/20 09:00 07/29/20 11:01 Saccharomyces Boulardii 250 Mg Cap PO 250 mg DAILY POLO Administration Sodium Chloride 10 ml 07/26/20 21:00 07/29/20 08:50 Flush - Normal Saline 10 Ml Syringe IVF 10 ml Q12HR POLO Administration Sodium Chloride 10 ml 07/26/20 11:00 07/27/20 05:08 Flush - Normal Saline 10 Ml Syringe IVF 10 ml PRN PRN Administration Saline Flush Sterile Water 1 ml 07/23/20 08:15 07/28/20 08:46 Bacteriostatic Water 30 Ml Vial FS 1 ml PRN PRN Administration RECONSTITUTION - Exam General Appearance: awake alert Eye: anicteric sclera ENT: no oropharyngeal lesions, moist mucosa Neck: supple, no JVD Heart: RRR, no murmur Respiratory: no wheezes, rhonchi Gastrointestinal: soft, non-tender, non-distended, normal bowel sounds Extremities: no cyanosis, no edema Neurological: cranial nerve grossly intact, no focal deficits Psychiatric: A&O x 3 Hosp A/P (1) Aspiration pneumonia Code(s): J69.0 - PNEUMONITIS DUE TO INHALATION OF FOOD AND VOMIT Status: Acute Qualifiers: Aspiration pneumonia type: due to regurgitated food Laterality: left Lung location: upper lobe of lung Qualified Code(s): J69.0 - Pneumonitis due to inhalation of food and vomit (2) Abscess of lung with pneumonia Code(s): J85.1 - ABSCESS OF LUNG WITH PNEUMONIA Status: Acute Qualifiers: Laterality: left Lung location: upper lobe of lung Qualified Code(s): J85.1 - Abscess of lung with pneumonia (3) Nondiabetic gastroparesis Code(s): K31.84 - GASTROPARESIS Status: Acute (4) General weakness Code(s): R53.1 - WEAKNESS Status: Chronic (5) COPD (chronic obstructive pulmonary disease) Status: Chronic Qualifiers: COPD type: unspecified COPD Qualified Code(s): J44.9 - Chronic obstructive pulmonary disease, unspecified (6) HTN (hypertension) Code(s): I10 - ESSENTIAL (PRIMARY) HYPERTENSION Status: Chronic Qualifiers: Hypertension type: essential hypertension Qualified Code(s): I10 - Essential (primary) hypertension (7) HX: breast cancer Code(s): Z85.3 - PERSONAL HISTORY OF MALIGNANT NEOPLASM OF BREAST Status: Chronic (8) Normocytic anemia Code(s): D64.9 - ANEMIA, UNSPECIFIED Status: Chronic (9) Severe protein-calorie malnutrition Code(s): E43 - UNSPECIFIED SEVERE PROTEIN-CALORIE MALNUTRITION Status: Chronic (10) Symptomatic anemia Code(s): D64.9 - ANEMIA, UNSPECIFIED Status: Chronic (11) Tobacco abuse Code(s): Z72.0 - TOBACCO USE Status: Chronic (12) Acute respiratory failure with hypoxia Code(s): J96.01 - ACUTE RESPIRATORY FAILURE WITH HYPOXIA Status: Resolved - Plan s/p Jejunostomy tube (Mccoy tube), feeding per gen surg advice is on omnicef, norvasc, lipitor, prednisone, reglan, nebs is needing nasal canula oxygen CT shows left upper lobe consolidation with lung abscess due to rec aspiration from idiopathic gastroparesis/hiatal hernia hemostable will add flagyl for anaerobic coverage dc plan when she tolerates tube feeds well and cleared by gen surgery
--- NOTE | 2020-07-29 15:07 | RAD ---
Exam: Chest one view HISTORY:Follow-up from prior exam. Left upper lobe opacity. Comparison: 07/21/2020 Correlation: Chest CT without contrast 07/21/2020 FINDINGS: Cardiac silhouette: Normal Aorta: Atherosclerotic Pulmonary vessels: Normal Costophrenic angles: Clear LUNGS: Persistent opacification of the left upper lobe. The degree of opacification has not significa ntly changed. Pneumothorax: None Osseous abnormalities: None IMPRESSION: Stable opacification left upper lobe. There is elevation of the left major fissure sugges ting a component of atelectasis. There appears to be abrupt termination of the left upper lobe bronchus. Bronchoscopy is recommended for better evaluation.
[2020-07-29] MEDS: Ondansetron PF 4 MG/2 ML Vial IVP PRN ×2 (16:34→21:30)
[2020-07-29] MEDS: metroNIDAZOLE 500 MG TAB PO SCH ×2 (16:36→21:22)
[2020-07-29] MEDS: diphenhydrAMINE 25 MG CAP PO SCH (21:22)
[2020-07-29] MEDS: Atorvastatin Calcium 20 MG TAB PO SCH (21:22)
[2020-07-30] MEDS: Metoclopramide HCl 10 MG/2 ML VIAL IVP SCH ×2 (00:13→06:04)
[2020-07-30 07:33] VITALS: TEMP 98.2
--- NOTE | 2020-07-30 08:53 | PRG ---
DATE OF SERVICE: 07/30/2020 SUBJECTIVE: Ms. Alexander is doing well. She is tolerating tube feeds to goal. She has no complaints. Her wound is healing well. ASSESSMENT: Status post gastrojejunal tube. PLAN: Okay to discharge. Follow up with me in 2 weeks. Job ID: [id number]
[2020-07-30] MEDS: Folic Acid 1 MG TAB PO SCH (10:02)
[2020-07-30] MEDS: predniSONE 20 MG TAB PO SCH (10:02)
[2020-07-30] MEDS: Cyanocobalamin (Vitamin B-12) 1,000 MCG TAB PO SCH (10:04)
[2020-07-30] MEDS: metroNIDAZOLE 500 MG TAB PO SCH (10:04)
[2020-07-30] MEDS: guaiFENesin ER 600 MG TAB PO SCH (10:04)
[2020-07-30] MEDS: Amlodipine 5 MG TAB PO SCH (10:05)
[2020-07-30] MEDS: Saccharomyces boulardii 250 MG CAP PO SCH (10:05)
[2020-07-30] MEDS: Cefdinir 300 MG CAP PO SCH (10:05)
[2020-07-30] MEDS: Multivit, Therapeutic 1 TAB PO SCH (10:05)
[2020-07-30] MEDS: Pantoprazole 40 MG VIAL IVP SCH (10:05)
[2020-07-30] MEDS: Enoxaparin Sodium 40 MG/0.4 ML SYRINGE SC SCH (10:06)
[2020-07-30 10:10] VITALS: BP 126/79
--- NOTE | 2020-07-31 16:02 | DIS ---
DATE OF ADMISSION: 07/22/2020 DATE OF DISCHARGE: 07/30/2020 DISCHARGE DISPOSITION: Home. PRIMARY DISCHARGE DIAGNOSES: Aspiration pneumonia secondary to idiopathic gastroparesis, left lung abscess. SECONDARY DISCHARGE DIAGNOSES: Chronic obstructive pulmonary disease, history of breast cancer, hypertension, chronic anemia, severe protein malnutrition, symptomatic anemia, tobacco abuse, acute respiratory failure with hypoxia on arrival resolved, status post jejunostomy tube (Mccoy tube). PROCEDURES DONE DURING HOSPITALIZATION: CT chest without contrast done on admission showed increased density in the left upper lobe pathologic process when compared to prior scan. There is fluid-filled central area that remains, infiltrative changes in the lung around the area have advanced slightly. There is more volume loss in the left upper lobe. Several minimal patchy areas in the right lung as described. The patient has had placement of a feeding gastrojejunal tube (Mccoy tube) placed by Dr. Munoz on 07/26/2020. Blood cultures x2, no growth. H and H 13 and 40, platelet count 465. Discharge BUN and creatinine are 20 and 1.4. Folic acid 3.2. COVID-19 PCR was not detected on 07/22/2020. DISCHARGE MEDICATIONS: 1. Atorvastatin 20 mg p.o. at bedtime. 2. Benadryl 25 mg p.o. at bedtime. 3. Turon p.r.n. for pain. 4. Norvasc 5 mg p.o. daily. 5. Protonix 40 mg twice daily. 6. Reglan 5 mg 3 times daily before meals. 7. DuoNeb q.6 hourly p.r.n. 8. Flagyl 500 mg p.o. 3 times daily for a total of 4 weeks. 9. Omnicef 300 mg p.o. twice daily for 4 weeks. 10. Florastor 250 mg p.o. daily. 11. Folic acid 1 mg twice daily. 12. Prednisone tapering dose starting at 10 mg twice daily for 4 days, then daily for 4 days, then half a tablet for 4 days and to discontinue. 13. Multivitamin one tablet once daily. 14. Vitamin B12 1000 mcg p.o. daily. ALLERGIES: TO MORPHINE AND LEVAQUIN. INPATIENT CONSULT: Dr. Gentile for Pulmonology, Dr. Manzanares for Gastroenterology, Dr. Munoz for General surgery, Dr. Ramirez for Infectious Disease. DISCHARGE PLAN: The patient to follow up with Dr. Gentile in 10 days, Dr. Munoz in 2 weeks, and primary care physician in 1 week. BRIEF COURSE DURING HOSPITALIZATION: The patient initially got admitted on the with complaints of shortness of breath. Initial x-ray was suspicious for left lung pneumonia. The patient has had a CT chest done, which confirmed left upper lobe pneumonia with abscess. She also had patchy infiltrates in the right lung. She was suspected to have aspiration pneumonia. She had also finished a course of Augmentin and prednisone prior to arrival. In view of this history and her infiltrates not improving, the patient has had consultation with Dr. Gentile for Pulmonology and Gastroenterology consultation as well. Ms. Alexander was suspected to have idiopathic gastroparesis. She has had General Surgery consultation due to severe protein malnutrition and inability to swallow safely. She has had gastrojejunostomy tube placed surgically. She is tolerating tube feeds well. She is also started to have oral liquid diet. She is hemodynamically stable. All her equipment and antibiotics have been delivered to her home. She is hemodynamically stable and is wanting to go home today. She also has [facility] and tube feeding formula Jevity delivered to her home as well. She needs to follow up with her primary care physician in [address] Gentile in 10 days to see for resolution of her pneumonia. Please note, I have seen and examined the patient on the day of discharge. Job ID: [id number] MTDD
== END 2020-07-30 15:02 | disposition home or self-care (01) | DRG 177 ==
LOC: UNDOADMIN 23:53 → T4-B 23:53
PROVIDERS: ADMIT Internal Medicine; ATTEND Internal Medicine
PROC: 0DHA0UZ Insertion of Feeding Device into Jejunum, Open Approach (ICD-10-PCS; principal; 2020-07-26)
DX: J69.0 Pneumonitis due to inhalation of food and vomit (principal); J85.1 Abscess of lung with pneumonia; E43 Unspecified severe protein-calorie malnutrition; J96.01 Acute respiratory failure with hypoxia; K22.6 Gastro-esophageal laceration-hemorrhage syndrome; R64 Cachexia; K31.84 Gastroparesis; J44.9 Chronic obstructive pulmonary disease, unspecified; F17.210 Nicotine dependence, cigarettes, uncomplicated; D64.9 Anemia, unspecified; Z20.828 Contact with and (suspected) exposure to other viral communicable diseases; K44.9 Diaphragmatic hernia without obstruction or gangrene; N18.30 Chronic kidney disease, stage 3 unspecified; I12.9 Hypertensive chronic kidney disease with stage 1 through stage 4 chronic kidney disease, or unspecified chronic kidney disease; E53.8 Deficiency of other specified B group vitamins; K21.9 Gastro-esophageal reflux disease without esophagitis; D63.1 Anemia in chronic kidney disease; K22.2 Esophageal obstruction; Z85.3 Personal history of malignant neoplasm of breast; Z68.22 Body mass index [BMI] 22.0-22.9, adult; Z90.10 Acquired absence of unspecified breast and nipple; Z79.890 Hormone replacement therapy; Z88.1 Allergy status to other antibiotic agents; Z88.5 Allergy status to narcotic agent; Z79.899 Other long term (current) drug therapy
CPT/HCPCS: 36415; 71045; 80048; 80053; 82607; 82746; 83735; 84100; 85025; 85610; 85730; 87635; 93005; 93010; C9113; J0171; J1644; J1650; J2185; J2405; J2543; J2704; J2765; J2920; J3010; J3420; J3490; J7512; J7620; Q0163; S0020; U0003

== ENCOUNTER 2020-08-06 14:35 | Emergency (ER) | payer MEDICARE | END 2020-08-06 16:02 | disposition home or self-care (01) | LOC: ERS 14:35 | DX: K94.23 Gastrostomy malfunction (principal); J44.9 Chronic obstructive pulmonary disease, unspecified; I10 Essential (primary) hypertension; F17.210 Nicotine dependence, cigarettes, uncomplicated; Z79.899 Other long term (current) drug therapy ==

== ENCOUNTER 2020-08-07 12:24 | Emergency (ER) | payer MEDICARE | END 2020-08-07 17:19 | disposition home or self-care (01) | LOC: ERS 12:24 | DX: K94.23 Gastrostomy malfunction (principal); I10 Essential (primary) hypertension; Z79.899 Other long term (current) drug therapy; F17.210 Nicotine dependence, cigarettes, uncomplicated | CPT/HCPCS: 99282 ==

== ENCOUNTER 2020-08-13 11:37 | Emergency (ER) | payer MEDICARE ==
[2020-08-13 13:02] LABS: #Basophils 0.1 thou/uL (0.0-0.2); #Eosinphils 0.4 thou/uL (0.0-0.7); #Lymphocytes 2.9 thou/uL (1.20-3.40); #Monocytes 0.8 thou/uL (0.11-0.59); #Neutrophils 6.7 thou/uL (1.40-6.50); %Basophils 0.6 % (0.0-1.0); %Eosinophils 4.1 % (0.0-10.0); %Lymphocytes 26.9 % (21.0-51.0); %Monocytes 7.1 % (0.0-10.0); %Neutrophils 61.4 % (42.0-75.0); Hemoglobin 11.7 g/dL (12.0-16.0); Mean Corpuscular HGB CONC 33.6 g/dL (32.0-36.0); Mean Corpuscular Hemoglobin 29.4 pg (27.0-31.0); Mean Corpuscular Volume 87.4 fL (78.0-98.0); Platelet Count 331 thou/uL (130-400); RBC Distribution Width 17.7 % (11.5-14.5); Red Blood Cell (RBC) Count 3.98 mill/uL (4.20-5.40); White Blood Cell (WBC) Count 10.9 thou/uL (4.8-10.8)
[2020-08-13 13:25] LABS: ALT (SGPT) 13 U/L (8-55); AST (SGOT) 17 U/L (5-34); Albumin 3.3 g/dL (3.4-4.8); Alkaline Phosphatase 65 U/L (40-110); Anion Gap 16 mmol/L (10-20); BUN (Urea Nitrogen) 8 mg/dL (9.8-20.1); Bilirubin, Total 0.3 mg/dL (0.2-1.2); Calc. Creatinine Clearance 0 mL/min (70-130); Calcium 8.8 mg/dL (7.8-10.44); Carbon Dioxide 25 mmol/L (23-31); Chloride 101 mmol/L (98-107); Estimated GFR-MDRD 59; Globulin 3.4 g/dL (2.4-3.5); Glucose 151 mg/dL (80-115); Potassium 4.5 mmol/L (3.5-5.1); Protein, Total 6.7 g/dL (6.0-8.3); Sodium 137 mmol/L (136-145)
[2020-08-13 14:51] LABS: Bilirubin Negative (Negative); Blood, Urine Negative (Negative); Clarity Clear (Clear); Glucose, Urine (Dipstick) 100 mg/dL (Negative); Ketone, Urine Negative (Negative); Leukocyte Negative Leu/uL (Negative); Nitrite Negative (Negative); Protein, Urine (Dipstick) Negative (Neg-Trace); Urobilinogen Normal mg/dL (Less than 2); pH, Urine 6.5 (5.0-9.0)
== END 2020-08-13 15:31 | disposition home or self-care (01) ==
LOC: ERS 11:37
DX: K94.23 Gastrostomy malfunction (principal); J44.9 Chronic obstructive pulmonary disease, unspecified; I10 Essential (primary) hypertension; F17.210 Nicotine dependence, cigarettes, uncomplicated
CPT/HCPCS: 80053; 81003; 85025; 99283

== ENCOUNTER 2020-08-16 10:59 | Outpatient (CLI) | payer MEDICARE ==
--- NOTE | 2020-08-16 11:19 | RAD ---
2 view chest: [08/16/2020] Comparison:07/29/2020 HISTORY: Shortness of breath FINDINGS: There is dense masslike opacity in the left hilar region with associated masslike opacity f illing the left perihilar region and left upper lobe region suggesting a combination of left hilar tumor and left upper lobe collapse. Density filling the left upper lobe/left hilar region measures 13 .3 x 10.4 cm, not significantly changed when compared to the 07/29/2020 exam. A gastrostomy tube is noted within the left upper quadrant. Postoperative clips overlie the mid right hemithorax laterally. There is diffuse increased linear interstitial density within the right lung, not significantly changed. There is blunting of the left costophrenic angle with obscuration of the left hemidiaphragm and mild hazy density in the left lung base suggesting a small left pleural effusion which has increased in volume when compared to the 07/31/2020 exam. There is extensive atherosclerotic calcification of the aortic arch. Stable small nodule (4 mm) noted in the lateral right lung base. There are a few punctate foci of gas within the left lung apex suggesting minimal aeration of the lef t upper lobe in the left apex region. IMPRESSION: Large mass lesion in the left perihilar region/left upper lobe region. Small but enlargin g left pleural effusion.
== END 2020-08-16 11:00 | disposition home or self-care (01) ==
LOC: BICRAD 10:59
PROVIDERS: ATTEND Internal Medicine Critical Care Medicine
DX: R06.00 Dyspnea, unspecified (principal); J90 Pleural effusion, not elsewhere classified; R91.8 Other nonspecific abnormal finding of lung field
CPT/HCPCS: 71046

== ENCOUNTER 2020-09-01 10:26 | Outpatient (CLI) | payer MEDICARE ==
--- NOTE | 2020-09-01 12:41 | RAD ---
Exam: Fluoroscopic tube check HISTORY: Patient has a percutaneous G-tube and jejunal tube. Evaluate for dysfunction. EXPOSURE: 1.3 minutes, 9.104 castillo/cm2. 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 Through the port for the G-tube, t otal of 15 cc of Gastrografin was administered. Contrast opacifies the distal portion of the stomach. Contrast passes into the duodenum. Additional contrast refluxes into the body of the stomach and gastric antrum. There was no compatible adapter available to access the feeding tube terminating in the jejunum. Ther efore, a Hang w/son wire was advanced through that portion of the feeding tube. Wire extends beyond the distal tip of the feeding tube, implying patency. IMPRESSION: No evidence of obstruction with regards to the G-tube component or jejunal component of the percutane ous feeding tube. Transcribed Date/Time: 09/01/2020 1:38 PM
== END 2020-09-01 10:27 | disposition home or self-care (01) ==
LOC: RAD 10:26
PROVIDERS: ATTEND Surgery
DX: T17.908S Unspecified foreign body in respiratory tract, part unspecified causing other injury, sequela (principal); Z93.1 Gastrostomy status
CPT/HCPCS: 76000

== ENCOUNTER 2020-09-13 07:33 | Day surgery (SDC) | payer MEDICARE ==
[2020-09-12 14:36] VITALS: BMI 21.2
[2020-09-13] MEDS ORDERED: Ketamine 50 MG/ML (10ML VIAL) ONE (08:54)
[2020-09-13] MEDS ORDERED: Esmolol 100 MG/10 ML VIAL ONE ×2 (08:57→11:46)
[2020-09-13] MEDS ORDERED: Glycopyrrolate 0.2 MG/ML 5 ML SYRINGE ONE ×2 (08:57→11:46)
[2020-09-13] MEDS ORDERED: Midazolam HCl 2 mg/2 ml Vial ONE ×2 (09:00→09:03)
[2020-09-13 09:45] LABS: #Basophils 0.1 thou/uL (0.0-0.2); #Eosinphils 0.4 thou/uL (0.0-0.7); #Lymphocytes 2.7 thou/uL (1.20-3.40); #Monocytes 1.4 thou/uL (0.11-0.59); %Basophils 0.4 % (0.0-1.0); %Eosinophils 2.5 % (0.0-10.0); %Lymphocytes 16.1 % (21.0-51.0); %Monocytes 8.3 % (0.0-10.0); %Neutrophils 72.8 % (42.0-75.0); Hemoglobin 11.7 g/dL (12.0-16.0); Mean Corpuscular HGB CONC 33.3 g/dL (32.0-36.0); Mean Corpuscular Volume 90.2 fL (78.0-98.0); Mean Platelet Volume 7.3 fL (7.4-10.4); Platelet Count 521 thou/uL (130-400); White Blood Cell (WBC) Count 16.5 thou/uL (4.8-10.8)
[2020-09-13] MEDS ORDERED: Lidocaine 1% PF 5 ML VIAL ONE (11:46)
[2020-09-13] MEDS ORDERED: PROPOFOL 200 MG/20 ML VIAL ONE (11:46)
--- NOTE | 2020-09-14 07:15 | OP ---
DATE OF PROCEDURE: 09/13/2020 PREOPERATIVE DIAGNOSIS: Perforated clogged Mccoy duodenal feeding tube. PROCEDURE PERFORMED: Esophagogastroduodenoscopy with replacement of duodenal feeding tube. INDICATIONS: Patient is a 65-year-old female who has gastroparesis and is unable to take any kind of feedings by mouth without vomiting. She had an open Mccoy tube placed a couple of months ago, which has clogged and in trying to unclog it, the had perforated it with a wire. FINDINGS: Successful placement in the 3rd portion of the duodenum. DESCRIPTION OF PROCEDURE: After informed consent was obtained, patient was taken to the operating room, given total IV anesthesia, placed in supine position. The new tube was prepped by tying a loop of 0 silk onto the tip of the new tube. The balloon was decompressed from the old tube. The old tube removed and the new tube inserted into the stomach. Then, the gastroscope was inserted transorally under direct vision into the stomach. The stomach insufflated with air. The snare used to grab the suture and then the scope was advanced through the pylorus as far down into the duodenum as I could. Then, the snare was advanced as far distal as I could to place the tube. The snare was open and slowly removed from around the suture and scope was removed. Once the scope was removed, the balloon was insufflated with 15 mL of water. The patient tolerated the procedure well, transferred to Recovery in good condition. Job ID: [id number]
== END 2020-09-13 11:54 | disposition home or self-care (01) ==
LOC: SDC 07:33
PROVIDERS: ATTEND Surgery
PROC: 0DH63UZ Insertion of Feeding Device into Stomach, Percutaneous Approach (ICD-10-PCS; principal; 2020-09-13)
DX: T85.598A Other mechanical complication of other gastrointestinal prosthetic devices, implants and grafts, initial encounter (principal); K31.84 Gastroparesis; K43.9 Ventral hernia without obstruction or gangrene; F17.210 Nicotine dependence, cigarettes, uncomplicated; Z79.2 Long term (current) use of antibiotics; Z79.899 Other long term (current) drug therapy; Z88.1 Allergy status to other antibiotic agents; Z88.5 Allergy status to narcotic agent
CPT/HCPCS: 85025; J0690; J2250; J2704; J7620

== ENCOUNTER 2020-09-18 10:04 | Outpatient (CLI) | payer MEDICARE ==
--- NOTE | 2020-09-18 12:29 | RAD ---
2 VIEW CHEST: Date: 09/18/2020 INDICATION: Dyspnea. COMPARISON: 08/16/2020. FINDINGS: Opacification of the left upper lung is again seen and is stable in appearance. Right lung is hyperex panded and remains clear. Left lung base is clear and unchanged. Heart and mediastinum unremarkable with aortic calcification again noted. IMPRESSION: Stable chest findings. POS: AGW
== END 2020-09-18 10:05 | disposition home or self-care (01) ==
LOC: BICRAD 10:04
PROVIDERS: ATTEND Internal Medicine Critical Care Medicine
DX: R06.00 Dyspnea, unspecified (principal)
CPT/HCPCS: 71046

== ENCOUNTER 2020-10-23 16:45 | Inpatient (IN) | payer MEDICARE ==
[~2020-10-23 16:45] MED LIST: Iopamidol-370 76% 500 ML 1 ML ONE
[2020-10-23 17:46] LABS: INR-International Normal Ratio 1.1; PTT 34.2 sec (22.9-36.1); Prothrombin Time 14.5 sec (12.0-14.7)
[2020-10-23 18:03] LABS: #Eosinphils 0.4 thou/uL (0.0-0.7); #Lymphocytes 2.7 thou/uL (1.20-3.40); #Monocytes 1.3 thou/uL (0.11-0.59); #Neutrophils 11.5 thou/uL (1.40-6.50); %Basophils 0.2 % (0.0-1.0); %Eosinophils 2.8 % (0.0-10.0); %Lymphocytes 16.8 % (21.0-51.0); %Monocytes 8.4 % (0.0-10.0); %Neutrophils 71.8 % (42.0-75.0); Hemoglobin 9.7 g/dL (12.0-16.0); Mean Corpuscular HGB CONC 33.2 g/dL (32.0-36.0); Mean Corpuscular Hemoglobin 28.9 pg (27.0-31.0); Mean Corpuscular Volume 87.1 fL (78.0-98.0); Mean Platelet Volume 6.6 fL (7.4-10.4); Platelet Count 646 thou/uL (130-400); RBC Distribution Width 13.6 % (11.5-14.5); Red Blood Cell (RBC) Count 3.34 mill/uL (4.20-5.40)
[2020-10-23 18:08] LABS: ALT (SGPT) 14 U/L (8-55); AST (SGOT) 31 U/L (5-34); Albumin 3.6 g/dL (3.4-4.8); Alkaline Phosphatase 104 U/L (40-110); Anion Gap 20 mmol/L (10-20); BUN (Urea Nitrogen) 21 mg/dL (9.8-20.1); Bilirubin, Total 0.5 mg/dL (0.2-1.2); Calc. Creatinine Clearance 0 mL/min (70-130); Calcium 9.8 mg/dL (7.8-10.44); Carbon Dioxide 20 mmol/L (23-31); Chloride 96 mmol/L (98-107); Globulin 4.8 g/dL (2.4-3.5); Glucose 181 mg/dL (80-115); Potassium 4.7 mmol/L (3.5-5.1); Protein, Total 8.4 g/dL (5.8-8.1); Sodium 131 mmol/L (136-145)
[2020-10-23] MEDS ORDERED: Vancomycin 1 GM/200 ML BAG ONE (18:43)
[2020-10-23] MEDS ORDERED: traMADol HCl 50 MG TAB ONE (18:43)
--- NOTE | 2020-10-23 19:22 | CT ---
CT of the abdomen and pelvis: To 05/04/2021 COMPARISON: 01/03/2015 HISTORY: Abdominal pain with fever TECHNIQUE: Axial CT imaging obtained at 5 mm intervals from the lung bases through the pubic symphysi s with IV contrast. Coronal and sagittal reformatted imaging obtained. FINDINGS: The imaged lung bases demonstrate a nodule within the right lower lobe on image 2 measuring 7-8 mm, stable when compared to the prior chest CT performed 09/20/2019. The left upper lobe mass seen on the prior chest CT is not included on this exam. No free intraperitoneal air is seen. The lack of oral contrast limits assessment of the bowel. There is a tiny low-density lesion within the right lobe of the liver measuring 4 mm, stable when com pared to the 2015 CT abdomen and pelvis. The spleen, pancreas, adrenal glands, and kidneys demonstrate no acute findings. There is a nonspecific low-density lesion within the mid pole of the l eft kidney posteriorly measuring 2.3 cm, increased from the 2015 study at which time it measured 9 mm. Its Hounsfield units are 25-30, not consistent with a simple cyst. Vascular calcification is seen in the region of the renal hilum bilaterally. There is a gastrojejunostomy tube present. There is a ventral hernia which measures 6.3 cm in transve rse dimension with a hernia sac measuring 13.9 cm in craniocaudal dimension. This hernia sac contains a portion of the stomach and a portion of the transverse colon with no evidence for obstruct ion. Bilateral hip arthroplasties are present. Limited assessment of the bowel demonstrates extensive diverticulosis of the descending colon and sig moid colon with no evidence for diverticulitis. There is no evidence for bowel obstruction. There is extensive severe atherosclerotic calcification involving the abdominal aorta and its branches. The re is a trace pleural effusion on the left. No abdominal or pelvic lymphadenopathy is seen. No acute osseous abnormality is noted. IMPRESSION: No free intraperitoneal air or evidence of small bowel obstruction. Numerous incidental f indings, including a hypodense left renal lesion for which nonemergent follow-up renal ultrasound is advised. CODE T
[2020-10-23 20:23] LABS: Bilirubin Negative (Negative); Blood, Urine Negative (Negative); Clarity Clear (Clear); Glucose, Urine (Dipstick) Normal (Negative); Ketone, Urine Negative (Negative); Leukocyte Negative Leu/uL (Negative); Nitrite Negative (Negative); Protein, Urine (Dipstick) 10 mg/dL (Neg-Trace); Specific Gravity, Urine 1.031 (1.002-1.036); Urobilinogen Normal mg/dL (Less than 2)
[2020-10-23] MEDS ORDERED: Piperacillin/Tazobactam 4.5 GM VIAL ONE (20:48)
--- NOTE | 2020-10-23 21:40 | PDOC.HHP ---
Hospitalist HPI PEG tube drainage History of Present Illness: 65-year-old female with history of chronic tobacco use, COPD, breast cancer, gastroparesis with previous recurrent pneumonia and severe protein malnutrition initiated on PEG tube feeding 3 months ago but with recurrent issues with PEG tube clogging requiring exchange of PEG tube 2 month ago. Patient states she superoposterior to have issues with repeated clogging of the PEG tube roughly every other day for which she tries multiple manipulations. She has noted increasing abdominal distention and nonfunctioning of the PEG tube since the last 2 days. She states her last feed was over 2 days ago. She noted repeated drainage of the PEG tube at about the exit site. She denies any fever or chills. She presented to the ED today because of persistent nonfunction of the PEG tube as well as mild generalized abdominal pain. In the ED she was noted with tachycardia which is improving with IV fluids. A CT scan of the abdomen shows PEG tube in situ with no intraperitoneal free air but extensive ventral wall hernia containing portion of the stoma. She has been admitted for intervention through PEG tube. General surgery has been consulted Patient admit to daily a.m. cough from her COPD. She states she is adherent to her medications. She denies any chest pain. She states she is able to take p.o. meds well. Allergies/Adverse Reactions: Allergy/AdvReac Type Severity Reaction Status Date / Time morphine AdvReac Severe Verified 09/12/20 14:35 levofloxacin AdvReac Intermediate Rash Verified 09/12/20 14:35 Home Medications: Medication Instructions Recorded Confirmed Type Atorvastatin Calcium 20 mg PO HS 06/27/20 09/12/20 History Pantoprazole [Protonix] 40 mg PO BID 06/27/20 09/12/20 History Umeclidinium/Vilanterol [Anoro 2 puff INH QAM 06/27/20 09/12/20 History Ellipta 62.5/25 MCG INH] cloNIDine [Catapres] 0.1 mg PO Q12HR PRN 06/27/20 09/12/20 History diphenhydrAMINE [Benadryl] 25 mg PO HS PRN 06/27/20 09/12/20 History Albuterol Sulfate [Ventolin HFA] 3 ml NEB Q6HR PRN 07/22/20 09/12/20 History Amlodipine [Norvasc] 5 mg PO QAM 07/22/20 09/12/20 History Metoclopramide HCl [Reglan] 5 mg PO TID 07/22/20 09/12/20 History Ipratropium/Albuterol Sulfate 3 ml NEB Q6HR PRN #30 ampule 07/30/20 09/12/20 Rx [DuoNeb] Multivit, Therapeutic [Theragran] 1 tab PO DAILY #30 tab 07/30/20 09/12/20 Rx Saccharomyces boulardii [Florastor] 250 mg PO DAILY #30 cap 07/30/20 09/12/20 Rx Amoxicillin/Potassium Clav 17.5 ml PO Q12HR 09/12/20 09/12/20 History [Augmentin 600mg/5mL Oral Susp] Telmisartan 40 mg PO QAM 09/12/20 09/12/20 History Past History: PMHx: Breast cancer Hypertension COPD Chronic tobacco use Gastroparesis Recent aspiration pneumonia Severe protein calorie malnutrition Status post PEG tube PSHx: Status post PEG tube FHx: Noncontributory Social: Smokes 1 pack/day, denies any alcohol or illicit drug use. Resides in the community with his spouse Hospitalist PHIL BARRAZA Constitutional: denies: fever, chills, sweats, weakness, malaise, other Eyes: denies: pain, vision change, conjunctivae inflammation, eyelid inflammat ion, redness, other ENT: denies: ear pain, ear discharge, nose pain, nose discharge, nose congestion, mouth pain, mouth swelling, throat pain, throat swelling, other Respiratory: reports: cough, sputum Cardiovascular: denies: chest pain, palpitations, orthopnea, paroxysmal noc. dyspnea, edema, light headedness, other Gastrointestinal: reports: abdominal pain Genitourinary: denies: dysuria, frequency, incontinence, hematuria, retention, other Musculoskeletal: denies: neck pain, shoulder pain, arm pain, back pain, hand pain, leg pain, foot pain, other Skin: denies: rash, lesions, nadia, bruising, other Neurological: denies: weakness, numbness, incoordination, change in speech, confusion, seizures, other Hospitalist Exam General Appearance: NAD, awake alert General - other findings: Cachectic chronically ill looking female, Eye: PERRL, anicteric sclera ENT: normocephalic atraumatic, no oropharyngeal lesions, dry oral mucosa Neck: supple, symmetric, no carotid bruit Heart: RRR, no murmur Respiratory: CTAB, no wheezes, no ronchi Gastrointestinal: soft, non-tender Gastrointestinal - other findings: PEG+, small discharge exit site , no overt erythema,large ventral hernia, Extremities: no cyanosis, no clubbing Skin: normal turgor, no lesions Neurological: cranial nerve grossly intact, normal sensation to touch, no focal deficits Psychiatric: normal affect, normal behavior, A&O x 3 Hospitalist Results Result Diagrams: 10/23/20 17:51 10/23/20 17:12 Lab results: Laboratory Last Values WBC 16.0 thou/uL (4.8-10.8) H 10/23/20 17:51 RBC 3.34 mill/uL (4.20-5.40) L 10/23/20 17:51 Hgb 9.7 g/dL (12.0-16.0) L 10/23/20 17:51 Hct 29.1 % (36.0-47.0) L 10/23/20 17:51 MCV 87.1 fL (78.0-98.0) 10/23/20 17:51 MCH 28.9 pg (27.0-31.0) 10/23/20 17:51 MCHC 33.2 g/dL (32.0-36.0) 10/23/20 17:51 RDW 13.6 % (11.5-14.5) 10/23/20 17:51 Plt Count 646 thou/uL (130-400) H 10/23/20 17:51 MPV 6.6 fL (7.4-10.4) L 10/23/20 17:51 Neutrophils % 71.8 % (42.0-75.0) 10/23/20 17:51 Lymphocytes % 16.8 % (21.0-51.0) L 10/23/20 17:51 Monocytes % 8.4 % (0.0-10.0) 10/23/20 17:51 Eosinophils % 2.8 % (0.0-10.0) 10/23/20 17:51 Basophils % 0.2 % (0.0-1.0) 10/23/20 17:51 Neutrophils # 11.5 thou/uL (1.40-6.50) H 10/23/20 17:51 Lymphocytes # 2.7 thou/uL (1.20-3.40) 10/23/20 17:51 Monocytes # 1.3 thou/uL (0.11-0.59) H 10/23/20 17:51 Eosinophils # 0.4 thou/uL (0.0-0.7) 10/23/20 17:51 Basophils # 0.0 thou/uL (0.0-0.2) 10/23/20 17:51 PT 14.5 sec (12.0-14.7) 10/23/20 17:20 INR 1.1 10/23/20 17:20 APTT 34.2 sec (22.9-36.1) 10/23/20 17:20 Sodium 131 mmol/L (136-145) L 10/23/20 17:12 Potassium 4.7 mmol/L (3.5-5.1) 10/23/20 17:12 Chloride 96 mmol/L (98-107) L 10/23/20 17:12 Carbon Dioxide 20 mmol/L (23-31) L 10/23/20 17:12 Anion Gap 20 mmol/L (10-20) 10/23/20 17:12 BUN 21 mg/dL (9.8-20.1) H 10/23/20 17:12 Creatinine 1.34 mg/dL (0.6-1.1) H 10/23/20 17:12 Estimated GFR (MDRD) 40 10/23/20 17:12 Glucose 181 mg/dL (80-115) H 10/23/20 17:12 Lactic Acid 1.7 mmol/L (0.5-2.2) 10/23/20 17:12 Calcium 9.8 mg/dL (7.8-10.44) 10/23/20 17:12 Total Bilirubin 0.5 mg/dL (0.2-1.2) 10/23/20 17:12 AST 31 U/L (5-34) 10/23/20 17:12 ALT 14 U/L (8-55) 10/23/20 17:12 Alkaline Phosphatase 104 U/L (40-110) 10/23/20 17:12 Serum Total Protein 8.4 g/dL (5.8-8.1) H 10/23/20 17:12 Albumin 3.6 g/dL (3.4-4.8) 10/23/20 17:12 Globulin 4.8 g/dL (2.4-3.5) H 10/23/20 17:12 Albumin/Globulin Ratio 0.8 g/dL (1.2-2.2) L 10/23/20 17:12 Urine Color Light-Yellow (Yellow) 10/23/20 20:02 Urine Clarity Clear (Clear) 10/23/20 20:02 Urine pH 6.0 (5.0-9.0) 10/23/20 20:02 Ur Specific [place] 1.031 (1.002-1.036) 10/23/20 20:02 Urine Protein 10 mg/dL (Neg-Trace) 10/23/20 20:02 Urine Glucose (UA) Normal mg/dL (Negative) 10/23/20 20:02 Urine Ketones Negative mg/dL (Negative) 10/23/20 20:02 Urine Blood Negative (Negative) 10/23/20 20:02 Urine Nitrite Negative (Negative) 10/23/20 20:02 Urine Bilirubin Negative (Negative) 10/23/20 20:02 Urine Urobilinogen Normal mg/dL (Less than 2) 10/23/20 20:02 Ur Leukocyte Esterase Negative Abelardo/uL (Negative) 10/23/20 20:02 CT scan - abdomen Status: image reviewed by me (CT abdomen reviewed, PEG tube extending into the stomal plate large portion contained within ventral wall hernia, Chest x-ray revealed no acute infiltrate) Hospitalist H&P A/P (1) Leaking PEG tube Code(s): K94.23 - GASTROSTOMY MALFUNCTION Status: Acute (2) Nondiabetic gastroparesis Code(s): K31.84 - GASTROPARESIS Status: Acute (3) COPD (chronic obstructive pulmonary disease) Status: Chronic Qualifiers: COPD type: unspecified COPD Qualified Code(s): J44.9 - Chronic obstructive pulmonary disease, unspecified (4) HTN (hypertension) Code(s): I10 - ESSENTIAL (PRIMARY) HYPERTENSION Status: Chronic Qualifiers: Hypertension type: essential hypertension Qualified Code(s): I10 - Esse ntial (primary) hypertension (5) Severe protein-calorie malnutrition Code(s): E43 - UNSPECIFIED SEVERE PROTEIN-CALORIE MALNUTRITION Status: Chronic Plan: #PEG tube malfunction/leakingwe will hold off PEG tube feeding for now Start gentle IV fluid with D5 LR We will consult general surgery for intervention of PEG tube My need intervention to ventral wall hernia to allow free drainage of PEG tube as well as replacement of tube We will follow Abdominal pain/leukocytosisunclear etiology, peritonitis unlikely Continue empiric antibiotics COPDcontinue duo nebs as needed We will add Mucomyst/guaifenesin for symptoms control Chronic tobacco usecessation advised, start nicotine patch Protein calorie malnutritionfollow with replacement of PEG tube, may need TPN if unable to fix PEG tube DVT prophylaxissubcutaneous heparin Advance directivefull code
[2020-10-23] MEDS ORDERED: HYDROcodone/Acetaminophen 5/325 mg Tablet PO PRN (21:46)
[2020-10-23] MEDS ORDERED: Guaifenesin DM 100-10/5 ML UDCUP PO PRN (21:46)
[2020-10-23] MEDS ORDERED: Ondansetron PF 4 MG/2 ML Vial IVP PRN (21:46)
[2020-10-23] MEDS ORDERED: Bisacodyl 5 MG TAB PO PRN (21:46)
[2020-10-23] MEDS ORDERED: hydrALAZINE 20 MG/ML VIAL SLOW IVP PRN (21:48)
[2020-10-24] MEDS: Dextrose 5 % And 0.9 % NaCl 1,000 ML IV SCH ×4 (00:19→21:59)
[2020-10-24] MEDS: cefTRIAXone\\ROCEPHIN 1 GM in Sodium Chloride 0.9% 100 ML IVPB SCH ×2 (00:25→22:00)
[2020-10-24] MEDS: Nicotine 21 MG PATCH TD SCH ×2 (00:25→22:02)
[2020-10-24] MEDS: traMADol HCl 50 MG TAB PO PRN (00:36)
[2020-10-24] MEDS ORDERED: Acetaminophen 650 MG Suppository PR PRN (01:35)
[2020-10-24 06:22] LABS: #Eosinphils 0.6 thou/uL (0.0-0.7); #Lymphocytes 2.6 thou/uL (1.20-3.40); #Monocytes 1.5 thou/uL (0.11-0.59); #Neutrophils 9.7 thou/uL (1.40-6.50); %Basophils 0.2 % (0.0-1.0); %Eosinophils 3.9 % (0.0-10.0); %Lymphocytes 18.1 % (21.0-51.0); %Monocytes 10.4 % (0.0-10.0); %Neutrophils 67.5 % (42.0-75.0); Hemoglobin 8.2 g/dL (12.0-16.0); Mean Corpuscular Volume 87.4 fL (78.0-98.0); Mean Platelet Volume 6.7 fL (7.4-10.4); Platelet Count 572 thou/uL (130-400); RBC Distribution Width 13.5 % (11.5-14.5); Red Blood Cell (RBC) Count 2.93 mill/uL (4.20-5.40); White Blood Cell (WBC) Count 14.3 thou/uL (4.8-10.8)
[2020-10-24 06:42] LABS: Anion Gap 15 mmol/L (10-20); BUN (Urea Nitrogen) 18 mg/dL (9.8-20.1); Calc. Creatinine Clearance 43 mL/min (70-130); Calcium 8.3 mg/dL (7.8-10.44); Carbon Dioxide 18 mmol/L (23-31); Chloride 101 mmol/L (98-107); Glucose 234 mg/dL (80-115); Sodium 130 mmol/L (136-145)
[2020-10-24 11:01] LABS: SARS-CoV-2 PCR by NAA Not Detected (NotDetected)
[2020-10-24] MEDS ORDERED: Ketorolac Tromethamine 30 MG/ML VIAL ONE (12:14)
[2020-10-24] MEDS ORDERED: Ketorolac Tromethamine 30 MG/ML VIAL IVP PRN (12:59)
[2020-10-24] MEDS: Amlodipine 5 MG TAB PO SCH (13:55)
[2020-10-24] MEDS: Enoxaparin Sodium 40 MG/0.4 ML SYRINGE SC SCH (13:55)
[2020-10-24] MEDS: Bupropion 150 MG SR TAB PO SCH (13:55)
[2020-10-24] MEDS: guaiFENesin ER 600 MG TAB PO SCH ×2 (13:56→22:03)
[2020-10-24] MEDS ORDERED: diphenhydrAMINE 25 MG CAP PO PRN (14:28)
[2020-10-24] MEDS ORDERED: cloNIDine 0.1 MG TAB PO PRN (14:28)
--- NOTE | 2020-10-24 14:31 | PDOC.HOSPP ---
- Subjective Encounter Date: 10/24/20 Encounter Time: 11:50 Subjective: Doing well she is waiting for the PEG tube to be looked into. Until then her medications are on hold. - Objective Vital Signs & Weight: Vital Signs (12 hours) Temp Pulse Resp BP Pulse Ox 10/24/20 13:56 99 20 95 10/24/20 11:21 98.3 F 97 18 120/72 92 L 10/24/20 08:00 93 L 10/24/20 07:18 101 H 18 93 L 10/24/20 07:14 99.1 F 103 H 18 135/76 93 L 10/24/20 04:48 98.7 F 110 H 20 126/74 95 Weight Admit Weight 120 lb 6.4 oz Weight 120 lb 6.4 oz I&O: 10/23/20 10/24/20 10/25/20 06:59 06:59 06:59 Intake Total 0 Balance 0 Result Diagrams: 10/24/20 06:00 10/24/20 06:00 Hospitalist ROS - Medication Medications: Active Medications Generic Name Dose Route Start Last Admin Trade Name Freq PRN Reason Stop Dose Admin Albuterol/Ipratropium 3 ml 10/23/20 22:30 10/24/20 13:57 Ipratropium/Albuterol Sulfate 3 Ml Neb NEB Not Given [id number] POOL Albuterol/Ipratropium 3 ml 10/24/20 01:00 10/24/20 13:56 Ipratropium/Albuterol Sulfate 3 Ml Neb NEB 3 ml [id number] POLO Administration Amlodipine Besylate 5 mg 10/24/20 09:00 10/24/20 13:55 Amlodipine 5 Mg Tab PO Not Given QAM POLO Bupropion HCl 150 mg 10/24/20 09:00 10/24/20 13:55 Bupropion 150 Mg Sr Tab PO 10/27/20 09:01 Not Given DAILY POLO Enoxaparin Sodium 40 mg 10/24/20 09:00 10/24/20 13:55 Enoxaparin Sodium 40 Mg/0.4 Ml Syringe SC Not Given 0900 POLO Guaifenesin 1,200 mg 10/24/20 09:00 10/24/20 13:56 Guaifenesin Er 600 Mg Tab PO Not Given Q12HR POLO Dextrose/Sodium Chloride 1,000 mls @ 125 mls/hr 10/23/20 22:00 10/24/20 08:41 D5 0.9% Ns IV 1,000 mls .Q8H POLO Administration Ceftriaxone Sodium 1 gm/ 100 mls @ 200 mls/hr 10/23/20 22:00 10/24/20 00:25 Sodium Chloride IVPB 100 mls Q24HR POLO Administration Nicotine 21 mg 10/23/20 22:00 10/24/20 00:25 Nicotine 21 Mg Patch TD 21 mg Q24HR POLO Administration Sodium Chloride 10 ml 10/24/20 09:00 10/24/20 13:56 Flush - Normal Saline 10 Ml Syringe IVF Not Given Q12HR [facility] Hospitalist Exam Vitals: Vital Signs (12 hours) Temp Pulse Resp BP Pulse Ox 10/24/20 13:56 99 20 95 10/24/20 11:21 98.3 F 97 18 120/72 92 L 10/24/20 08:00 93 L 10/24/20 07:18 101 H 18 93 L 10/24/20 07:14 99.1 F 103 H 18 135/76 93 L 10/24/20 04:48 98.7 F 110 H 20 126/74 95 Weight Admit Weight 120 lb 6.4 oz Weight 120 lb 6.4 oz General Appearance: NAD, awake alert Eye: PERRL ENT: normocephalic atraumatic Neck: supple Heart: RRR Respiratory: CTAB, normal chest expansion Gastrointestinal: soft, normal bowel sounds Musculoskeletal: generalized weakness Psychiatric: A&O x 3 Hosp A/P - Plan Leaking PEG tube Code(s): K94.23 - GASTROSTOMY MALFUNCTION Status: Acute (2) Nondiabetic gastroparesis Code(s): K31.84 - GASTROPARESIS Status: Acute (3) COPD (chronic obstructive pulmonary disease) Status: Chronic Qualifiers: COPD type: unspecified COPD Qualified Code(s): J44.9 - Chronic obstructive pulmonary disease, unspecified (4) HTN (hypertension) Code(s): I10 - ESSENTIAL (PRIMARY) HYPERTENSION Status: Chronic Qualifiers: Hypertension type: essential hypertension Qualified Code(s): I10 - Essential (primary) hypertension (5) Severe protein-calorie malnutrition Code(s): E43 - UNSPECIFIED SEVERE PROTEIN-CALORIE MALNUTRITION Status: Chronic Plan: #PEG tube malfunction/leaking -General surgery has been consulted. -IV hydration on hold to the home p.o. medications -Home meds reconciled. Abdominal pain/leukocytosisunclear etiology, peritonitis unlikely Continue empiric antibiotics COPDcontinue duo nebs as needed Chronic tobacco usecessation advised, start nicotine patch Protein calorie malnutritionfollow with replacement of PEG tube Moderate malnutrition nutrition consult Heparin for DVT peripheral Will call
[2020-10-24] MEDS: Famotidine/PF 20 mg/2ml Vial SLOW IVP SCH (15:20)
[2020-10-24] MEDS: Metoclopramide HCl 10 MG TAB PO SCH (17:25)
[2020-10-24] MEDS: Atorvastatin Calcium 20 MG TAB PO SCH (22:03)
--- NOTE | 2020-10-25 06:45 | CON ---
DATE OF CONSULTATION: 10/24/2020 Please see previous consult for full H and P. Ms. Alexander presents with leakage from her J-tube site again. This is the third time it has to be replaced. She has had issues with clogging nearly nonstop since it was placed. Now, she has bile draining around the exit site and in the tubing itself. I removed the Mccoy tube and placed a replacement PEG tube at the bedside with no complication. My recommendation is to reassess for her swallowing and her gastroparesis. J-tube, Mccoy tube is not going to be a good long-time option for her. She has a large ventral hernia now, which is going to make any surgical procedure very difficult. I think that the reason her most recent tube was not working was that the balloon was passed pyloric causing a significant gastric outlet obstruction. If distal feeding is a necessity, we will work with GI to try to replace this Mccoy tube endoscopically. For now, can use the G-tube. We will follow with you. Job ID: [id number]
[2020-10-25] MEDS: Metoclopramide HCl 10 MG TAB PO SCH ×3 (07:30→18:37)
[2020-10-25] MEDS: guaiFENesin ER 600 MG TAB PO SCH ×2 (07:31→20:09)
[2020-10-25] MEDS: Bupropion 150 MG SR TAB PO SCH (07:31)
[2020-10-25] MEDS: Amlodipine 5 MG TAB PO SCH (07:31)
[2020-10-25] MEDS: Losartan 25 MG TAB PO SCH (07:32)
[2020-10-25] MEDS: Multivit, Therapeutic 1 TAB PO SCH (07:32)
[2020-10-25] MEDS: Dextrose 5 % And 0.9 % NaCl 1,000 ML IV SCH (09:17)
[2020-10-25] MEDS: Famotidine/PF 20 mg/2ml Vial SLOW IVP SCH (09:20)
[2020-10-25] MEDS: Enoxaparin Sodium 40 MG/0.4 ML SYRINGE SC SCH (09:20)
--- NOTE | 2020-10-25 13:54 | PDOC.HOSPP ---
- Subjective Encounter Date: 10/25/20 Encounter Time: 11:45 Subjective: Patient seen this morning. Her PEG tube is replaced last evening at bedside without any complication. It has not been used yet. She has a sodium level of 131. She is not in any distress she appears well. - Objective Vital Signs & Weight: Vital Signs (12 hours) Temp Pulse Resp BP Pulse Ox 10/25/20 13:21 104 H 22 H 94 L 10/25/20 11:00 97.8 F 104 H 18 128/70 93 L 10/25/20 08:00 92 L 10/25/20 07:45 98.6 F 105 H 16 132/70 94 L 10/25/20 07:31 105 H 10/25/20 07:27 105 H 20 94 L 10/25/20 04:00 98.2 F 105 H 18 114/72 94 L Weight Admit Weight 120 lb 6.4 oz Weight 123 lb 6.4 oz I&O: 10/24/20 10/25/20 10/26/20 06:59 06:59 06:59 Intake Total 0 Balance 0 Result Diagrams: 10/24/20 06:00 10/24/20 06:00 Hospitalist ROS - Medication Medications: Active Medications Generic Name Dose Route Start Last Admin Trade Name Freq PRN Reason Stop Dose Admin Albuterol/Ipratropium 3 ml 10/24/20 01:00 10/25/20 13:21 Ipratropium/Albuterol Sulfate 3 Ml Neb NEB 3 ml [id number] POLO Administration Amlodipine Besylate 5 mg 10/24/20 09:00 10/25/20 07:31 Amlodipine 5 Mg Tab PO Not Given QAM POLO Atorvastatin Calcium 20 mg 10/24/20 21:00 10/24/20 22:03 Atorvastatin Calcium 20 Mg Tab PO Not Given HS POLO Bupropion HCl 150 mg 10/24/20 09:00 10/25/20 07:31 Bupropion 150 Mg Sr Tab PO 10/27/20 09:01 Not Given DAILY POLO Enoxaparin Sodium 40 mg 10/24/20 09:00 10/25/20 09:20 Enoxaparin Sodium 40 Mg/0.4 Ml Syringe SC 40 mg 0900 POLO Administration Famotidine 20 mg 10/24/20 09:00 10/25/20 09:20 Famotidine/Pf 20 Mg/2ml Vial SLOW IVP 20 mg QAM POLO Administration Guaifenesin 1,200 mg 10/24/20 09:00 10/25/20 07:31 Guaifenesin Er 600 Mg Tab PO Not Given Q12HR POLO Ceftriaxone Sodium 1 gm/ 100 mls @ 200 mls/hr 10/23/20 22:00 10/24/20 22:00 Sodium Chloride IVPB 100 mls Q24HR POLO Administration Ketorolac Tromethamine 15 mg 10/24/20 12:59 10/24/20 22:08 Ketorolac Tromethamine 30 Mg/Ml Vial IVP 10/25/20 18:00 15 mg Q6H PRN Administration Pain Losartan Potassium 50 mg 10/25/20 09:00 10/25/20 07:32 Losartan 25 Mg Tab PO Not Given QAM POLO Metoclopramide HCl 5 mg 10/24/20 17:00 10/25/20 12:58 Metoclopramide Hcl 10 Mg Tab PO Not Given AC POLO Multivitamins 1 tab 10/25/20 09:00 10/25/20 07:32 Multivit, Therapeutic 1 Tab PO Not Given DAILY POLO Nicotine 21 mg 10/23/20 22:00 10/24/20 22:02 Nicotine 21 Mg Patch TD 21 mg Q24HR POLO Administration Pantoprazole Sodium 40 mg 10/24/20 21:00 10/25/20 07:32 Pantoprazole 40 Mg Tab PO Not Given BID POLO Sodium Chloride 10 ml 10/24/20 09:00 10/25/20 09:20 Flush - Normal Saline 10 Ml Syringe IVF 10 ml Q12HR POLO Administration Hospitalist Exam Vitals: Vital Signs (12 hours) Temp Pulse Resp BP Pulse Ox 10/25/20 13:21 104 H 22 H 94 L 10/25/20 11:00 97.8 F 104 H 18 128/70 93 L 10/25/20 08:00 92 L 10/25/20 07:45 98.6 F 105 H 16 132/70 94 L 10/25/20 07:31 105 H 10/25/20 07:27 105 H 20 94 L 10/25/20 04:00 98.2 F 105 H 18 114/72 94 L Weight Admit Weight 120 lb 6.4 oz Weight 123 lb 6.4 oz General Appearance: NAD, awake alert Eye: PERRL ENT: normocephalic atraumatic Neck: supple Heart: RRR Respiratory: CTAB, normal chest expansion Gastrointestinal: soft, normal bowel sounds Gastrointestinal - other findings: PEG tube area looked into it it appears well significant ventral hernia Extremities: no edema Musculoskeletal: generalized weakness Psychiatric: normal affect, normal behavior, A&O x 3 Hosp A/P - Plan Leaking PEG tube--secondary to possible gastric outlet obstruction Code(s): K94.23 - GASTROSTOMY MALFUNCTION Status: Acute (2) Nondiabetic gastroparesis Code(s): K31.84 - GASTROPARESIS Status: Acute (3) COPD (chronic obstructive pulmonary disease) Status: Chronic Qualifiers: COPD type: unspecified COPD Qualified Code(s): J44.9 - Chronic obstructive pulmonary disease, unspecified (4) HTN (hypertension) Code(s): I10 - ESSENTIAL (PRIMARY) HYPERTENSION Status: Chronic Qualifiers: Hypertension type: essential hypertension Qualified Code(s): I10 - Essential (primary) hypertension (5) Severe protein-calorie malnutrition Code(s): E43 - UNSPECIFIED SEVERE PROTEIN-CALORIE MALNUTRITION Status: Chronic Plan: #PEG tube malfunction/leaking -General surgery has been consulted. -IV hydration on hold to the home p.o. medications -Home meds reconciled. Abdominal pain/leukocytosisunclear etiology, peritonitis unlikely Continue empiric antibiotics COPDcontinue duo nebs as needed Chronic tobacco usecessation advised, start nicotine patch Protein calorie malnutritionfollow with replacement of PEG tube Moderate malnutrition nutrition consult Heparin for DVT peripheral 10th PEG tube is replaced the last evening. It appears this is a J-tube She has a large ventral hernia that would limit the surgical intervention, so if we need to replace the joseph tube, then she needs endoscopical intervention. -It looks it was readjusted. we are getting a small bowel x-ray today -We will restart the G-tube feed after review of the film. Gentle IV hydration to correct the sodium level. Nutrition consult to start the feeding via PEG tube. Follow-up on sodium level with the morning lab.
[2020-10-25] MEDS ORDERED: Sodium Chloride 0.9% 1,000 ML IV SCH (14:00)
--- NOTE | 2020-10-25 14:29 | RAD ---
Upper GI and small bowel follow-through HISTORY: Abdominal pain. Evaluate for gastric outlet obstruction. FINDINGS: Gastrografin contrast was administered through the gastric feeding tube. No evidence of gage k. Small bowel is decompressed. Contrast material within the nondilated right colon at 1 hour. IMPRESSION : No evidence of gastric outlet obstruction, complication of PEG, or other abnormality.
[2020-10-25] MEDS ORDERED: MD-Gastroview 120 ML BOT ONE (14:50)
[2020-10-25] MEDS: Atorvastatin Calcium 20 MG TAB PO SCH (20:10)
[2020-10-25] MEDS: Nicotine 21 MG PATCH TD SCH (20:51)
[2020-10-25] MEDS: cefTRIAXone\\ROCEPHIN 1 GM in Sodium Chloride 0.9% 100 ML IVPB SCH (20:52)
[2020-10-26] MEDS: traMADol HCl 50 MG TAB PO PRN ×2 (02:09→20:39)
[2020-10-26 06:18] LABS: #Eosinphils 0.3 thou/uL (0.0-0.7); #Monocytes 1.2 thou/uL (0.11-0.59); %Basophils 0.1 % (0.0-1.0); %Eosinophils 2.2 % (0.0-10.0); %Lymphocytes 20.6 % (21.0-51.0); %Monocytes 8.1 % (0.0-10.0); Hemoglobin 7.9 g/dL (12.0-16.0); Mean Corpuscular HGB CONC 32.3 g/dL (32.0-36.0); Mean Corpuscular Hemoglobin 28.3 pg (27.0-31.0); Mean Corpuscular Volume 87.6 fL (78.0-98.0); Mean Platelet Volume 6.6 fL (7.4-10.4); Platelet Count 520 thou/uL (130-400); RBC Distribution Width 13.6 % (11.5-14.5); Red Blood Cell (RBC) Count 2.78 mill/uL (4.20-5.40); White Blood Cell (WBC) Count 14.5 thou/uL (4.8-10.8)
[2020-10-26 06:38] LABS: Anion Gap 15 mmol/L (10-20); BUN (Urea Nitrogen) 5 mg/dL (9.8-20.1); Calc. Creatinine Clearance 56 mL/min (70-130); Calcium 8.3 mg/dL (7.8-10.44); Carbon Dioxide 18 mmol/L (23-31); Chloride 104 mmol/L (98-107); Glucose 133 mg/dL (80-115); Potassium 3.4 mmol/L (3.5-5.1); Sodium 134 mmol/L (136-145)
[2020-10-26] MEDS: guaiFENesin ER 600 MG TAB PO SCH ×2 (09:06→20:40)
[2020-10-26] MEDS: Bupropion 150 MG SR TAB PO SCH (09:06)
[2020-10-26] MEDS: Amlodipine 5 MG TAB PO SCH (09:07)
[2020-10-26] MEDS: Losartan 25 MG TAB PO SCH (09:07)
[2020-10-26] MEDS: Multivit, Therapeutic 1 TAB PO SCH (09:07)
[2020-10-26] MEDS: Famotidine/PF 20 mg/2ml Vial SLOW IVP SCH (09:08)
[2020-10-26] MEDS: Metoclopramide HCl 10 MG TAB PO SCH ×3 (09:08→17:00)
[2020-10-26] MEDS: Enoxaparin Sodium 40 MG/0.4 ML SYRINGE SC SCH (09:08)
[2020-10-26] MEDS ORDERED: NS 0.9% w/ 40 MEQ KCL 500 ML IV SCH (09:45)
[2020-10-26 12:10] VITALS: BMI 21.2
[2020-10-26] MEDS ORDERED: Potassium Chloride 40 MEQ in Sodium Chloride 0.9% 500 ML IVPB SCH (12:30)
--- NOTE | 2020-10-26 13:53 | PDOC.HOSPP ---
- Subjective Encounter Date: 10/26/20 Encounter Time: 11:50 Subjective: Patient seen this morning she is little frustrated as tube feed has not started yet. I discussed with RN. Maintenance fluid is running. She is alert oriented. She has been followed in the past by Dr. Flores. - Objective Vital Signs & Weight: Vital Signs (12 hours) Temp Pulse Resp BP Pulse Ox 10/26/20 11:26 98.6 F 104 H 20 127/64 92 L 10/26/20 09:07 104 H 10/26/20 07:30 98.1 F 104 H 18 124/63 96 10/26/20 07:25 102 H 18 93 L Weight Admit Weight 120 lb 6.4 oz Weight 123 lb 6.4 oz I&O: 10/25/20 10/26/20 10/27/20 06:59 06:59 06:59 Intake Total 820 Balance 820 Result Diagrams: 10/26/20 05:47 10/26/20 05:47 Hospitalist ROS - Medication Medications: Active Medications Generic Name Dose Route Start Last Admin Trade Name Freq PRN Reason Stop Dose Admin Albuterol/Ipratropium 3 ml 10/24/20 01:00 10/26/20 07:25 Ipratropium/Albuterol Sulfate 3 Ml Neb NEB 3 ml [id number] POLO Administration Amlodipine Besylate 5 mg 10/24/20 09:00 10/26/20 09:07 Amlodipine 5 Mg Tab PO 5 mg QAM POLO Administration Atorvastatin Calcium 20 mg 10/24/20 21:00 10/25/20 20:10 Atorvastatin Calcium 20 Mg Tab PO 20 mg HS POLO Administration Bupropion HCl 150 mg 10/24/20 09:00 10/26/20 09:06 Bupropion 150 Mg Sr Tab PO 10/27/20 09:01 150 mg DAILY POLO Administration Enoxaparin Sodium 40 mg 10/24/20 09:00 10/26/20 09:08 Enoxaparin Sodium 40 Mg/0.4 Ml Syringe SC 40 mg 0900 POLO Administration Famotidine 20 mg 10/24/20 09:00 10/26/20 09:08 Famotidine/Pf 20 Mg/2ml Vial SLOW IVP 20 mg QAM POLO Administration Guaifenesin 1,200 mg 10/24/20 09:00 10/26/20 09:06 Guaifenesin Er 600 Mg Tab PO 1,200 mg Q12HR POLO Administration Ceftriaxone Sodium 1 gm/ 100 mls @ 200 mls/hr 10/23/20 22:00 10/25/20 20:52 Sodium Chloride IVPB 100 mls Q24HR POLO Administration Potassium Chloride 40 meq/ 520 mls @ 50 mls/hr 10/26/20 12:30 10/26/20 13:47 Sodium Chloride IVPB 10/26/20 22:53 520 mls INF POLO Administration Losartan Potassium 50 mg 10/25/20 09:00 10/26/20 09:07 Losartan 25 Mg Tab PO 50 mg QAM POLO Administration Metoclopramide HCl 5 mg 10/24/20 17:00 10/26/20 13:47 Metoclopramide Hcl 10 Mg Tab PO 5 mg AC POLO Administration Multivitamins 1 tab 10/25/20 09:00 10/26/20 09:07 Multivit, Therapeutic 1 Tab PO 1 tab DAILY POLO Administration Nicotine 21 mg 10/23/20 22:00 10/25/20 20:51 Nicotine 21 Mg Patch TD 21 mg Q24HR POLO Administration Pantoprazole Sodium 40 mg 10/24/20 21:00 10/26/20 09:08 Pantoprazole 40 Mg Tab PO 40 mg BID POLO Administration Sodium Chloride 10 ml 10/24/20 09:00 10/26/20 09:08 Flush - Normal Saline 10 Ml Syringe IVF 10 ml Q12HR POLO Administration Tramadol HCl 50 mg 10/23/20 21:50 10/26/20 02:09 Tramadol Hcl 50 Mg Tab PO 50 mg Q6H PRN Administration Mild-Moderate Pain (1-5) Hospitalist Exam Vitals: Vital Signs (12 hours) Temp Pulse Resp BP Pulse Ox 10/26/20 11:26 98.6 F 104 H 20 127/64 92 L 10/26/20 09:07 104 H 10/26/20 07:30 98.1 F 104 H 18 124/63 96 10/26/20 07:25 102 H 18 93 L Weight Admit Weight 120 lb 6.4 oz Weight 123 lb 6.4 oz General Appearance: NAD, awake alert Eye: PERRL ENT: normocephalic atraumatic Neck: supple Heart: RRR, normal peripheral pulses Respiratory: CTAB, normal chest expansion Gastrointestinal: distended Gastrointestinal - other findings: J-tube in place she has small football size ventral hernia Neurological: no focal deficits Musculoskeletal: generalized weakness Psychiatric: normal affect, normal behavior, A&O x 3 Hosp A/P - Plan Leaking PEG tube--secondary to possible gastric outlet obstruction Code(s): K94.23 - GASTROSTOMY MALFUNCTION Status: Acute (2) Nondiabetic gastroparesis Code(s): K31.84 - GASTROPARESIS Status: Acute (3) COPD (chronic obstructive pulmonary disease) Status: Chronic Qualifiers: COPD type: unspecified COPD Qualified Code(s): J44.9 - Chronic obstructive pulmonary disease, unspecified (4) HTN (hypertension) Code(s): I10 - ESSENTIAL (PRIMARY) HYPERTENSION Status: Chronic Qualifiers: Hypertension type: essential hypertension Qualified Code(s): I10 - Essential (primary) hypertension (5) Severe protein-calorie malnutrition Code(s): E43 - UNSPECIFIED SEVERE PROTEIN-CALORIE MALNUTRITION Status: Chronic Plan: #PEG tube malfunction/leaking -General surgery has been consulted. -IV hydration on hold to the home p.o. medications -Home meds reconciled. Abdominal pain/leukocytosisunclear etiology, peritonitis unlikely Continue empiric antibiotics COPDcontinue duo nebs as needed Chronic tobacco usecessation advised, start nicotine patch Protein calorie malnutritionfollow with replacement of PEG tube Moderate malnutrition nutrition consult Heparin for DVT peripheral 10th PEG tube is replaced the last evening. It appears this is a J-tube She has a large ventral hernia that would limit the surgical intervention, so if we need to replace the joseph tube, then she needs endoscopical intervention. -It looks it was readjusted. we are getting a small bowel x-ray today -We will restart the G-tube feed after review of the film. Gentle IV hydration to correct the sodium level. Nutrition consult to start the feeding via PEG tube. Follow-up on sodium level with the morning lab. 11th -Restart the tube feed via J-tube -Patient is to have a lot of symptoms including shortness of breath when she lies flat due to the significant size of ventral hernia. After the tube feed started we will monitor her for at least 24 hours if she is asymptomatic then w ill plan to send her home. She lives with her spouse. -If she is symptomatic for any reason, we may need to consult to for further evaluation including endoscopy study which has done in the past
[2020-10-26] MEDS: Atorvastatin Calcium 20 MG TAB PO SCH (20:40)
[2020-10-26] MEDS: cefTRIAXone\\ROCEPHIN 1 GM in Sodium Chloride 0.9% 100 ML IVPB SCH (22:43)
[2020-10-26] MEDS: Nicotine 21 MG PATCH TD SCH (23:44)
[2020-10-27 05:47] LABS: Anion Gap 14 mmol/L (10-20); BUN (Urea Nitrogen) 7 mg/dL (9.8-20.1); Calc. Creatinine Clearance 53 mL/min (70-130); Calcium 8.7 mg/dL (7.8-10.44); Carbon Dioxide 17 mmol/L (23-31); Chloride 107 mmol/L (98-107); Glucose 131 mg/dL (80-115); Potassium 3.8 mmol/L (3.5-5.1); Sodium 134 mmol/L (136-145)
[2020-10-27 06:31] LABS: #Eosinphils 0.7 thou/uL (0.0-0.7); #Monocytes 1.4 thou/uL (0.11-0.59); #Neutrophils 9.6 thou/uL (1.40-6.50); %Basophils 0.2 % (0.0-1.0); %Eosinophils 4.5 % (0.0-10.0); %Lymphocytes 20.7 % (21.0-51.0); %Monocytes 9.3 % (0.0-10.0); %Neutrophils 65.3 % (42.0-75.0); Hemoglobin 8.7 g/dL (12.0-16.0); Mean Corpuscular HGB CONC 31.8 g/dL (32.0-36.0); Mean Corpuscular Hemoglobin 28.3 pg (27.0-31.0); Mean Corpuscular Volume 88.8 fL (78.0-98.0); Mean Platelet Volume 6.5 fL (7.4-10.4); Platelet Count 548 thou/uL (130-400); RBC Distribution Width 13.6 % (11.5-14.5); Red Blood Cell (RBC) Count 3.07 mill/uL (4.20-5.40); White Blood Cell (WBC) Count 14.6 thou/uL (4.8-10.8)
[2020-10-27 08:36] VITALS: BP 125/68; TEMP 98.5
[2020-10-27] MEDS: Enoxaparin Sodium 40 MG/0.4 ML SYRINGE SC SCH (08:57)
[2020-10-27] MEDS: Losartan 25 MG TAB PO SCH (08:57)
[2020-10-27] MEDS: Amlodipine 5 MG TAB PO SCH (08:58)
[2020-10-27] MEDS: Famotidine/PF 20 mg/2ml Vial SLOW IVP SCH (08:58)
[2020-10-27] MEDS: guaiFENesin ER 600 MG TAB PO SCH (08:58)
[2020-10-27] MEDS: Bupropion 150 MG SR TAB PO SCH (08:58)
[2020-10-27] MEDS: Multivit, Therapeutic 1 TAB PO SCH (08:58)
[2020-10-27] MEDS: Metoclopramide HCl 10 MG TAB PO SCH ×2 (09:03→12:14)
[2020-10-27] MEDS: traMADol HCl 50 MG TAB PO PRN (09:03)
--- NOTE | 2020-10-27 10:50 | PDOC.GSPN ---
Surgery Progress Note: Subj - Subjective Narrative: tolerating tube feeds Surgery Progress Note: Obj - Vital signs Vital signs: Vital Signs - Most Recent Temp Pulse Resp BP Pulse Ox 98.5 F 116 H 22 H 125/68 93 L 10/27/20 08:00 10/27/20 08:00 10/27/20 08:00 10/27/20 08:00 10/27/20 08:00 - Physical Exam General: no distress Respiratory: clear to auscultation Abdomen: soft, nondistended Surgery Progress Note: Results - Labs Result Diagrams: 10/27/20 05:09 10/27/20 05:09 Lab results: Laboratory Results - last 12 hr 10/27/20 10/27/20 05:09 05:09 WBC 14.6 H RBC 3.07 L Hgb 8.7 L Hct 27.3 L MCV 88.8 MCH 28.3 MCHC 31.8 L RDW 13.6 Plt Count 548 H MPV 6.5 L Neutrophils % 65.3 Lymphocytes % 20.7 L Monocytes % 9.3 Eosinophils % 4.5 Basophils % 0.2 Neutrophils # 9.6 H Lymphocytes # 3.0 Monocytes # 1.4 H Eosinophils # 0.7 Basophils # 0.0 Sodium 134 L Potassium 3.8 Chloride 107 Carbon Dioxide 17 L Anion Gap 14 BUN 7 L Creatinine 0.92 Estimated GFR (MDRD) 61 Glucose 131 H Calcium 8.7 Surgery Progress Note: A/P - Problem (1) Abscess of lung with pneumonia Current Visit: No Code(s): J85.1 - ABSCESS OF LUNG WITH PNEUMONIA Status: Acute Qualifiers: Laterality: left Lung location: upper lobe of lung Qualified Code(s): J85.1 - Abscess of lung with pneumonia - Plan Plan: Tolerating feeds thru G tube -SBFT showed good emptying from stomach thru tube -OK to DC home by me today.
--- NOTE | 2020-10-27 12:49 | PDOC.DS.DS ---
Provider Date of Admission: 10/25/20 13:44 Admitting Provider: Joshua Cunningham MD Primary Care Physician: MITALI FITCH [facility] Course: 65-year-old female presented with Leaking PEG tube--secondary to possible gastric outlet obstruction Code(s): K94.23 - GASTROSTOMY MALFUNCTION Status: Acute (2) Nondiabetic gastroparesis Code(s): K31.84 - GASTROPARESIS Status: Acute (3) COPD (chronic obstructive pulmonary disease) Status: Chronic Qualifiers: COPD type: unspecified COPD Qualified Code(s): J44.9 - Chronic obstructive pulmonary disease, unspecified (4) HTN (hypertension) Code(s): I10 - ESSENTIAL (PRIMARY) HYPERTENSION Status: Chronic Qualifiers: Hypertension type: essential hypertension Qualified Code(s): I10 - Essential (primary) hypertension (5) Severe protein-calorie malnutrition Code(s): E43 - UNSPECIFIED SEVERE PROTEIN-CALORIE MALNUTRITION Status: Chronic Plan: #PEG tube malfunction/leaking -General surgery adjusted Protein calorie malnutritionfollow with replacement of PEG tube Moderate malnutrition J tube is replaced. She has a large ventral hernia that would limit the surgical intervention, so if we need to replace the joseph tube, then she needs endoscopical intervention. Small bowel follow-through showed good emptying from stomach through the tube. She has no symptoms of abdominal distress. She is comfortable going home today. Follow with the PCP in 1 to 2 weeks time. Discharge time over 30 minutes. Resuscitation Status: 10/23/20 21:46 Resuscitation Status Routine Resuscitation Status: FULL: Full Resuscitation Lab Results: 10/27/20 05:09 10/27/20 05:09 Abnormal Lab Results - Last 48 hrs 10/26/20 05:47: Sodium 134 L, Potassium 3.4 L, Carbon Dioxide 18 L, BUN 5 L 10/26/20 05:47: WBC 14.5 H, RBC 2.78 L, Hgb 7.9 L, Hct 24.3 L, Plt Count 520 H, MPV 6.6 L, Lymphocytes % 20.6 L, Neutrophils # 10.0 H, Monocytes # 1.2 H 10/27/20 05:09: Sodium 134 L, Carbon Dioxide 17 L, BUN 7 L 10/27/20 05:09: WBC 14.6 H, RBC 3.07 L, Hgb 8.7 L, Hct 27.3 L, MCHC 31.8 L, Plt Count 548 H, MPV 6.5 L, Lymphocytes % 20.7 L, Neutrophils # 9.6 H, Monocytes # 1.4 H Microbiology - Entire Visit 10/23/20 20:02 Urine clean catch Urine Culture - Final 10/23/20 17:20 Venous blood - Left Arm Blood Culture - Preliminary NO GROWTH AT 48 HOURS 10/23/20 17:12 Venous blood - Left Hand Blood Culture - Preliminary NO GROWTH AT 48 HOURS Vitals: Vital Signs (12 hours) Temp Pulse Resp BP Pulse Ox 10/27/20 08:00 98.5 F 116 H 22 H 125/68 93 L 10/27/20 06:38 111 H 16 92 L Weight Admit Weight 120 lb 6.4 oz Weight 123 lb 6.4 oz Physical Exam: The patient was seen and examined on the day of discharge. This morning her ear tube feed started yesterday and it is working very well. Stable to be discharged home today. Surgery also cleared her. Plan Home Medications: Medication Instructions Recorded Confirmed Type Atorvastatin Calcium 20 mg PO HS 06/27/20 10/24/20 History Pantoprazole [Protonix] 40 mg PO BID 06/27/20 10/24/20 History Umeclidinium/Vilanterol [Anoro 2 puff INH QAM 06/27/20 10/24/20 History Ellipta 62.5/25 MCG INH] cloNIDine [Catapres] 0.1 mg PO Q8HR PRN 06/27/20 10/24/20 History diphenhydrAMINE [Benadryl] 25 mg PO HS PRN 06/27/20 10/24/20 History Albuterol Sulfate [Ventolin HFA] 3 ml NEB Q6HR PRN 07/22/20 10/24/20 History Amlodipine [Norvasc] 5 mg PO QAM 07/22/20 10/24/20 History Metoclopramide HCl [Reglan] 5 mg PO TID 07/22/20 10/24/20 History Ipratropium/Albuterol Sulfate 3 ml NEB Q6HR PRN #30 ampule 07/30/20 10/24/20 Rx [DuoNeb] Multivit, Therapeutic [Theragran] 1 tab PO DAILY #30 tab 07/30/20 10/24/20 Rx Telmisartan 40 mg PO QAM 09/12/20 10/24/20 History Allergies: morphine Adverse Reaction (Severe, Verified 10/24/20 02:02) PATIENTS B/P BOTTOMED OUT WHEN GIVEN MORPHINE levofloxacin Adverse Reaction (Intermediate, Verified 10/24/20 02:02) Rash Activity:: Activity as Tolerated Nourishment:: Tube Feeding Diet Referrals: MITALI FITCH [Primary Care Provider] - Disposition: HOME Quality CORE MEASURES:: N/A
== END 2020-10-27 15:11 | disposition home or self-care (01) | DRG 393 ==
LOC: ERS 16:45 → T4-A 21:22 → OBSVTOIN 10-25 13:44
PROVIDERS: ADMIT Internal Medicine; ATTEND Internal Medicine
PROC: 0D20XUZ Change Feeding Device in Upper Intestinal Tract, External Approach (ICD-10-PCS; principal; 2020-10-24)
DX: K94.23 Gastrostomy malfunction (principal); E43 Unspecified severe protein-calorie malnutrition; J85.1 Abscess of lung with pneumonia; Z20.822 Contact with and (suspected) exposure to COVID-19; K31.84 Gastroparesis; J44.9 Chronic obstructive pulmonary disease, unspecified; I10 Essential (primary) hypertension; K43.9 Ventral hernia without obstruction or gangrene; F17.210 Nicotine dependence, cigarettes, uncomplicated; Y83.3 Surgical operation with formation of external stoma as the cause of abnormal reaction of the patient, or of later complication, without mention of misadventure at the time of the procedure; Z68.21 Body mass index [BMI] 21.0-21.9, adult; Z88.1 Allergy status to other antibiotic agents; Z88.5 Allergy status to narcotic agent; Z79.899 Other long term (current) drug therapy
CPT/HCPCS: 36415; 74177; 74250; 80048; 80053; 81003; 83605; 85025; 85610; 85730; 87040; 87086; 87635; 93005; 94640; 94760; 96365; 96366; 96375; J0696; J1650; J1885; J2543; J3370; J3480; J3490; J7030; J7620; Q9963; Q9967; S0028; U0003; U0005

== ENCOUNTER 2021-01-11 18:55 | Inpatient (IN) | payer MEDICARE ==
[2021-01-11] MEDS ORDERED: Benzonatate 100 MG CAP PO PRN (22:14)
[2021-01-11] MEDS ORDERED: cefTRIAXone\\ROCEPHIN 1 GM in Sodium Chloride 0.9% 100 ML IVPB SCH (22:15)
[2021-01-11] MEDS ORDERED: Azithromycin 500 MG in Sodium Chloride 0.9% 250 ML 250 ML IVPB SCH (22:15)
[2021-01-11] MEDS ORDERED: Budesonide 0.25 MG/2 ML NEB INH SCH (22:45)
[2021-01-11] MEDS: Piperacillin/Tazobactam 3.375 GM in Sodium Chloride 0.9% 100 ML IVPB SCH (23:30)
[2021-01-11] MEDS: methylPREDNISolone Sod Succ 40 MG VIAL IVP SCH (23:30)
[2021-01-12 01:50] LABS: SARS-CoV-2 PCR by NAA Not Detected (NotDetected)
[2021-01-12 04:43] LABS: #Lymphocytes 0.8 thou/uL (1.20-3.40); #Monocytes 0.2 thou/uL (0.11-0.59); #Neutrophils 8.2 thou/uL (1.40-6.50); %Basophils 0.2 % (0.0-1.0); %Eosinophils 0.2 % (0.0-10.0); %Lymphocytes 8.8 % (21.0-51.0); %Monocytes 2.3 % (0.0-10.0); %Neutrophils 88.6 % (42.0-75.0); Hemoglobin 8.5 g/dL (12.0-16.0); Mean Corpuscular HGB CONC 32.1 g/dL (32.0-36.0); Mean Corpuscular Volume 81.1 fL (78.0-98.0); Mean Platelet Volume 6.2 fL (7.4-10.4); Platelet Count 626 thou/uL (130-400); RBC Distribution Width 14.2 % (11.5-14.5); Red Blood Cell (RBC) Count 3.27 mill/uL (4.20-5.40); White Blood Cell (WBC) Count 9.3 thou/uL (4.8-10.8)
[2021-01-12 05:00] LABS: Anion Gap 18 mmol/L (10-20); BUN (Urea Nitrogen) 20 mg/dL (9.8-20.1); Calc. Creatinine Clearance 47 mL/min (70-130); Calcium 10.1 mg/dL (7.8-10.44); Carbon Dioxide 21 mmol/L (23-31); Chloride 90 mmol/L (98-107); Glucose 209 mg/dL (80-115); Potassium 5.2 mmol/L (3.5-5.1); Sodium 124 mmol/L (136-145)
[2021-01-12] MEDS: Piperacillin/Tazobactam 3.375 GM in Sodium Chloride 0.9% 100 ML IVPB SCH ×4 (05:38→23:39)
[2021-01-12] MEDS: methylPREDNISolone Sod Succ 40 MG VIAL IVP SCH ×4 (05:38→23:39)
[2021-01-12] MEDS: Budesonide 0.25 MG/2 ML NEB INH SCH ×2 (06:54→18:40)
[2021-01-12] MEDS ORDERED: Enoxaparin Sodium 40 MG/0.4 ML SYRINGE SC SCH (09:00)
[2021-01-12] MEDS ORDERED: Cyanocobalamin (Vitamin B-12) 1,000 MCG TAB PO SCH (09:30)
[2021-01-12] MEDS ORDERED: Multivit, Therapeutic 1 TAB PO SCH (09:30)
[2021-01-12] MEDS ORDERED: Folic Acid 1 MG TAB PO SCH (09:30)
[2021-01-12] MEDS: Nicotine 21 MG PATCH TD SCH (10:51)
[2021-01-12] MEDS: Acetaminophen 650 MG/20.3 ML UDCUP PO PRN ×2 (10:54→21:55)
[2021-01-12 11:13] LABS: Magnesium 2.3 mg/dL (1.6-2.6); Phosphorus 4.8 mg/dL (2.3-4.7)
[2021-01-12 11:55] VITALS: BMI 21.6
[2021-01-12 13:13] LABS: Bacteria/HPF None Seen HPF (None Seen); Bilirubin Negative (Negative); Blood, Urine Negative (Negative); Clarity Clear (Clear); Glucose, Urine (Dipstick) Normal (Negative); Ketone, Urine Negative (Negative); Leukocyte Negative Leu/uL (Negative); Nitrite Negative (Negative); Protein, Urine (Dipstick) 20 mg/dL (Neg-Trace); RBC/HPF 0-3 HPF (0-3); Specific Gravity, Urine 1.012 (1.002-1.036); Squamous Epithelial 0-3 HPF (0-3); Urobilinogen Normal mg/dL (Less than 2); WBC/HPF 0-3 HPF (0-3); pH, Urine 6.5 (5.0-9.0)
[2021-01-12 13:15] LABS: Urine Culture Reflex No No
[2021-01-12] MEDS: Vancomycin 1 GM in Premix Bag 1 BAG IVPB SCH (14:19)
[2021-01-12 15:02] LABS: Anion Gap 17 mmol/L (10-20); BUN (Urea Nitrogen) 20 mg/dL (9.8-20.1); Calc. Creatinine Clearance 45 mL/min (70-130); Calcium 10.2 mg/dL (7.8-10.44); Carbon Dioxide 20 mmol/L (23-31); Chloride 92 mmol/L (98-107); Glucose 180 mg/dL (80-115); Potassium 5.2 mmol/L (3.5-5.1); Sodium 124 mmol/L (136-145)
[2021-01-12] MEDS ORDERED: GUAIFENESIN SF SOLN 200 MG/10 ML UDCUP PO PRN (17:39)
[2021-01-12] MEDS: Atorvastatin Calcium 20 MG TAB PO SCH (21:36)
[2021-01-12] MEDS: Temazepam 15 MG CAP PO PRN (21:37)
[2021-01-12] MEDS: Guaifenesin DM 100-10/5 ML UDCUP PO PRN (21:37)
[2021-01-13 04:44] LABS: #Lymphocytes 1.3 thou/uL (1.20-3.40); #Monocytes 0.6 thou/uL (0.11-0.59); #Neutrophils 15.2 thou/uL (1.40-6.50); %Basophils 0.2 % (0.0-1.0); %Eosinophils 0.2 % (0.0-10.0); %Lymphocytes 7.7 % (21.0-51.0); %Monocytes 3.6 % (0.0-10.0); %Neutrophils 88.4 % (42.0-75.0); Hemoglobin 7.9 g/dL (12.0-16.0); Mean Corpuscular HGB CONC 31.7 g/dL (32.0-36.0); Mean Corpuscular Hemoglobin 26.2 pg (27.0-31.0); Mean Corpuscular Volume 82.7 fL (78.0-98.0); Mean Platelet Volume 6.3 fL (7.4-10.4); Platelet Count 629 thou/uL (130-400); RBC Distribution Width 14.3 % (11.5-14.5); Red Blood Cell (RBC) Count 3.03 mill/uL (4.20-5.40); White Blood Cell (WBC) Count 17.2 thou/uL (4.8-10.8)
[2021-01-13 05:03] LABS: Anion Gap 17 mmol/L (10-20); BUN (Urea Nitrogen) 24 mg/dL (9.8-20.1); Calc. Creatinine Clearance 47 mL/min (70-130); Carbon Dioxide 23 mmol/L (23-31); Chloride 95 mmol/L (98-107); Glucose 139 mg/dL (80-115); Magnesium 2.3 mg/dL (1.6-2.6); Phosphorus 4.8 mg/dL (2.3-4.7); Sodium 130 mmol/L (136-145)
[2021-01-13] MEDS: Piperacillin/Tazobactam 3.375 GM in Sodium Chloride 0.9% 100 ML IVPB SCH ×4 (05:31→23:39)
[2021-01-13] MEDS: methylPREDNISolone Sod Succ 40 MG VIAL IVP SCH ×4 (05:31→23:39)
[2021-01-13] MEDS: Acetaminophen 650 MG/20.3 ML UDCUP PO PRN ×2 (05:39→21:06)
[2021-01-13] MEDS: Budesonide 0.25 MG/2 ML NEB INH SCH ×2 (07:07→18:36)
[2021-01-13] MEDS: Enoxaparin Sodium 30 MG/0.3 ML SYRINGE SC SCH (08:35)
[2021-01-13] MEDS: Cyanocobalamin (Vitamin B-12) 1,000 MCG TAB PO SCH (08:35)
[2021-01-13] MEDS: Folic Acid 1 MG TAB PO SCH (08:35)
[2021-01-13] MEDS: Multivit, Therapeutic 1 TAB PO SCH (08:35)
[2021-01-13] MEDS: Nicotine 21 MG PATCH TD SCH (08:37)
[2021-01-13] MEDS: Vancomycin 1 GM in Premix Bag 1 BAG IVPB SCH (15:03)
[2021-01-13] MEDS: Temazepam 15 MG CAP PO PRN (21:05)
[2021-01-13] MEDS: Atorvastatin Calcium 20 MG TAB PO SCH (21:05)
[2021-01-14] MEDS: methylPREDNISolone Sod Succ 40 MG VIAL IVP SCH ×4 (05:25→22:25)
[2021-01-14] MEDS: Piperacillin/Tazobactam 3.375 GM in Sodium Chloride 0.9% 100 ML IVPB SCH ×4 (05:25→22:25)
[2021-01-14] MEDS: Budesonide 0.25 MG/2 ML NEB INH SCH ×2 (07:23→18:11)
[2021-01-14] MEDS: Multivit, Therapeutic 1 TAB PO SCH (08:50)
[2021-01-14] MEDS: Cyanocobalamin (Vitamin B-12) 1,000 MCG TAB PO SCH (08:50)
[2021-01-14] MEDS: Folic Acid 1 MG TAB PO SCH (08:50)
[2021-01-14] MEDS: Enoxaparin Sodium 30 MG/0.3 ML SYRINGE SC SCH (08:51)
[2021-01-14] MEDS: Nicotine 21 MG PATCH TD SCH (08:51)
[2021-01-14] MEDS: cloNIDine 0.1 MG TAB PO PRN (08:53)
[2021-01-14] MEDS: Acetaminophen 650 MG/20.3 ML UDCUP PO PRN (08:54)
[2021-01-14 13:14] LABS: Anion Gap 20 mmol/L (10-20); BUN (Urea Nitrogen) 21 mg/dL (9.8-20.1); Calc. Creatinine Clearance 48 mL/min (70-130); Calcium 10.3 mg/dL (7.8-10.44); Carbon Dioxide 19 mmol/L (23-31); Chloride 94 mmol/L (98-107); Glucose 135 mg/dL (80-115); Potassium 4.8 mmol/L (3.5-5.1); Sodium 128 mmol/L (136-145)
[2021-01-14] MEDS: Vancomycin 1 GM in Premix Bag 1 BAG IVPB SCH (14:40)
[2021-01-14] MEDS: VANCOMYCIN 1.25 GM/250 ML BAG 1.25 GM in Premix Bag 1 BAG IVPB SCH (14:54)
[2021-01-14] MEDS: Atorvastatin Calcium 20 MG TAB PO SCH (22:24)
[2021-01-14] MEDS: Guaifenesin DM 100-10/5 ML UDCUP PO PRN (22:25)
[2021-01-14] MEDS: Temazepam 15 MG CAP PO PRN (22:25)
[2021-01-15] MEDS: Acetaminophen 650 MG/20.3 ML UDCUP PO PRN ×2 (00:21→13:54)
[2021-01-15] MEDS ORDERED: HYDROcodone/Acetaminophen 5/325 mg Tablet PO SCH (01:15)
[2021-01-15] MEDS: Piperacillin/Tazobactam 3.375 GM in Sodium Chloride 0.9% 100 ML IVPB SCH ×4 (05:59→23:21)
[2021-01-15] MEDS: methylPREDNISolone Sod Succ 40 MG VIAL IVP SCH ×4 (06:01→23:22)
[2021-01-15] MEDS: Budesonide 0.25 MG/2 ML NEB INH SCH ×2 (07:15→18:22)
[2021-01-15] MEDS: Ondansetron PF 4 MG/2 ML Vial IVP PRN ×2 (08:27→15:05)
[2021-01-15] MEDS: Cyanocobalamin (Vitamin B-12) 1,000 MCG TAB PO SCH (08:28)
[2021-01-15] MEDS: Nicotine 21 MG PATCH TD SCH (08:29)
[2021-01-15] MEDS: Multivit, Therapeutic 1 TAB PO SCH (08:29)
[2021-01-15] MEDS: Folic Acid 1 MG TAB PO SCH (08:29)
[2021-01-15] MEDS: Enoxaparin Sodium 30 MG/0.3 ML SYRINGE SC SCH (08:29)
[2021-01-15] MEDS ORDERED: Ibuprofen 200 MG TAB PO SCH (08:30)
[2021-01-15] MEDS: Ketorolac Tromethamine 30 MG/ML VIAL IVP PRN ×2 (10:05→17:35)
[2021-01-15 10:32] LABS: Anion Gap 18 mmol/L (10-20); BUN (Urea Nitrogen) 18 mg/dL (9.8-20.1); Calc. Creatinine Clearance 53 mL/min (70-130); Calcium 10.4 mg/dL (7.8-10.44); Carbon Dioxide 24 mmol/L (23-31); Chloride 92 mmol/L (98-107); Glucose 135 mg/dL (80-115); Potassium 4.3 mmol/L (3.5-5.1); Sodium 130 mmol/L (136-145)
[2021-01-15] MEDS: VANCOMYCIN 1.25 GM/250 ML BAG 1.25 GM in Premix Bag 1 BAG IVPB SCH (13:51)
[2021-01-15] MEDS: Atorvastatin Calcium 20 MG TAB PO SCH (19:41)
[2021-01-15] MEDS: cloNIDine 0.1 MG TAB PO PRN (19:42)
[2021-01-16] MEDS: Ketorolac Tromethamine 30 MG/ML VIAL IVP PRN (00:45)
[2021-01-16] MEDS: Piperacillin/Tazobactam 3.375 GM in Sodium Chloride 0.9% 100 ML IVPB SCH ×3 (05:51→17:44)
[2021-01-16] MEDS: methylPREDNISolone Sod Succ 40 MG VIAL IVP SCH ×3 (05:51→17:45)
[2021-01-16] MEDS: cloNIDine 0.1 MG TAB PO PRN ×2 (06:00→13:08)
[2021-01-16] MEDS: Budesonide 0.25 MG/2 ML NEB INH SCH ×2 (07:03→18:56)
[2021-01-16 07:41] LABS: #Eosinphils 0.1 thou/uL (0.0-0.7); #Lymphocytes 3.4 thou/uL (1.20-3.40); #Monocytes 1.2 thou/uL (0.11-0.59); #Neutrophils 13.8 thou/uL (1.40-6.50); %Eosinophils 0.8 % (0.0-10.0); %Lymphocytes 18.1 % (21.0-51.0); %Monocytes 6.6 % (0.0-10.0); %Neutrophils 74.5 % (42.0-75.0); Hemoglobin 9.4 g/dL (12.0-16.0); Mean Corpuscular HGB CONC 32.1 g/dL (32.0-36.0); Mean Corpuscular Hemoglobin 26.7 pg (27.0-31.0); Mean Corpuscular Volume 83.4 fL (78.0-98.0); Mean Platelet Volume 6.1 fL (7.4-10.4); Platelet Count 582 thou/uL (130-400); RBC Distribution Width 14.7 % (11.5-14.5); Red Blood Cell (RBC) Count 3.52 mill/uL (4.20-5.40); White Blood Cell (WBC) Count 18.6 thou/uL (4.8-10.8)
[2021-01-16 07:50] LABS: Anion Gap 18 mmol/L (10-20); BUN (Urea Nitrogen) 25 mg/dL (9.8-20.1); Calc. Creatinine Clearance 46 mL/min (70-130); Calcium 10.2 mg/dL (7.8-10.44); Carbon Dioxide 20 mmol/L (23-31); Chloride 94 mmol/L (98-107); Glucose 128 mg/dL (80-115); Potassium 4.8 mmol/L (3.5-5.1); Sodium 127 mmol/L (136-145)
[2021-01-16 08:05] LABS: PTT 27.8 sec (22.9-36.1); Prothrombin Time 13.7 sec (12.0-14.7)
[2021-01-16 08:10] LABS: Lymphocytes 22 % (21-51); MDiff Complete? YES; Monocytes 5 % (0-10); Neutrophil 73 % (42-75); Platelet Morphology Comment Appears Increased; Polychromasia SLIGHT = 2-3 cells (100X) (0-2/hpf)
[2021-01-16] MEDS ORDERED: Fentanyl 100 MCG/2 ML VIAL ONE (08:53)
[2021-01-16] MEDS ORDERED: SUGAMMADEX SODIUM 500 MG/5 ML VIAL ONE (08:53)
[2021-01-16] MEDS ORDERED: Rocuronium Bromide 10 MG/ML (10ML VIAL) ONE (09:38)
[2021-01-16] MEDS ORDERED: Dexamethasone 20 MG/5 ML VIAL ONE (09:38)
[2021-01-16] MEDS ORDERED: Lidocaine 1% PF 5 ML VIAL ONE (09:38)
[2021-01-16] MEDS ORDERED: PROPOFOL 200 MG/20 ML VIAL ONE (09:38)
[2021-01-16] MEDS ORDERED: Succinylcholine 200 MG/10 ml SYRINGE FS ONE (09:38)
[2021-01-16] MEDS ORDERED: Glycopyrrolate 0.2 MG/ML 5 ML SYRINGE ONE (09:38)
[2021-01-16] MEDS ORDERED: Ondansetron PF 4 MG/2 ML Vial ONE (09:38)
[2021-01-16] MEDS: Cyanocobalamin (Vitamin B-12) 1,000 MCG TAB PO SCH (12:40)
[2021-01-16] MEDS: Enoxaparin Sodium 30 MG/0.3 ML SYRINGE SC SCH (12:40)
[2021-01-16] MEDS: Folic Acid 1 MG TAB PO SCH (12:41)
[2021-01-16] MEDS: Nicotine 21 MG PATCH TD SCH ×2 (12:41→14:51)
[2021-01-16] MEDS: Multivit, Therapeutic 1 TAB PO SCH (12:41)
[2021-01-16] MEDS: Vancomycin HCl 1.25 GM in Sodium Chloride 0.9% 250 ML 250 ML IVPB SCH (14:05)
[2021-01-16 14:46] LABS: Vancomycin, Trough 19.9 ug/mL
[2021-01-16] MEDS: Atorvastatin Calcium 20 MG TAB PO SCH (21:15)
[2021-01-17] MEDS: Piperacillin/Tazobactam 3.375 GM in Sodium Chloride 0.9% 100 ML IVPB SCH ×5 (00:11→23:44)
[2021-01-17] MEDS: methylPREDNISolone Sod Succ 40 MG VIAL IVP SCH ×5 (00:12→23:44)
[2021-01-17 06:33] LABS: Hemoglobin 9.3 g/dL (12.0-16.0); Mean Corpuscular HGB CONC 31.3 g/dL (32.0-36.0); Mean Corpuscular Hemoglobin 26.1 pg (27.0-31.0); Mean Corpuscular Volume 83.6 fL (78.0-98.0); Mean Platelet Volume 5.9 fL (7.4-10.4); Platelet Count 699 thou/uL (130-400); RBC Distribution Width 15.2 % (11.5-14.5); Red Blood Cell (RBC) Count 3.55 mill/uL (4.20-5.40); White Blood Cell (WBC) Count 21.2 thou/uL (4.8-10.8)
[2021-01-17 06:42] LABS: Anion Gap 18 mmol/L (10-20); BUN (Urea Nitrogen) 27 mg/dL (9.8-20.1); Calc. Creatinine Clearance 48 mL/min (70-130); Calcium 9.7 mg/dL (7.8-10.44); Carbon Dioxide 20 mmol/L (23-31); Chloride 96 mmol/L (98-107); Glucose 119 mg/dL (80-115); Potassium 4.6 mmol/L (3.5-5.1); Sodium 129 mmol/L (136-145)
[2021-01-17] MEDS: Budesonide 0.25 MG/2 ML NEB INH SCH ×2 (07:02→19:09)
[2021-01-17 07:53] LABS: Hypersemented Neutrophil MODERATE; Hypochromia SLIGHT = 6-15 cells (100X) (0-5/hpf); Lymphocytes 12 % (21-51); MDiff Complete? YES; Monocytes 2 % (0-10); Myelocyte 1 % (0-0); Neutrophil 85 % (42-75); Platelet Morphology Comment Appears Increased; Polychromasia SLIGHT = 2-3 cells (100X) (0-2/hpf); Reflex for Review?? YES
[2021-01-17] MEDS: Folic Acid 1 MG TAB PO SCH (09:16)
[2021-01-17] MEDS: Multivit, Therapeutic 1 TAB PO SCH (09:16)
[2021-01-17] MEDS: Enoxaparin Sodium 30 MG/0.3 ML SYRINGE SC SCH (09:16)
[2021-01-17] MEDS: Cyanocobalamin (Vitamin B-12) 1,000 MCG TAB PO SCH (09:16)
[2021-01-17] MEDS: Nicotine 21 MG PATCH TD SCH (09:17)
[2021-01-17] MEDS ORDERED: Pantoprazole 40 MG GRANULES PACKET PO SCH (09:30)
[2021-01-17] MEDS: cloNIDine 0.1 MG TAB PO PRN (09:35)
[2021-01-17] MEDS ORDERED: Pancrelipase DR 12,000 1 CAP FS PRN (14:00)
[2021-01-17] MEDS ORDERED: Sodium Bicarbonate Tab 325 MG TAB PER TUBE PRN (14:00)
[2021-01-17] MEDS: Vancomycin HCl 1.25 GM in Sodium Chloride 0.9% 250 ML 250 ML IVPB SCH (14:06)
[2021-01-17] MEDS: Atorvastatin Calcium 20 MG TAB PO SCH (20:50)
[2021-01-17] MEDS: Temazepam 15 MG CAP PO PRN (20:50)
[2021-01-17] MEDS: Cyclobenzaprine 10 MG TAB PO PRN (20:50)
[2021-01-17] MEDS: Pantoprazole 40 MG GRANULES PACKET PO SCH (20:52)
[2021-01-18] MEDS: methylPREDNISolone Sod Succ 40 MG VIAL IVP SCH ×2 (06:49→12:37)
[2021-01-18] MEDS: Piperacillin/Tazobactam 3.375 GM in Sodium Chloride 0.9% 100 ML IVPB SCH ×4 (06:49→23:42)
[2021-01-18] MEDS: Budesonide 0.25 MG/2 ML NEB INH SCH ×2 (06:52→18:32)
[2021-01-18] MEDS: Nicotine 21 MG PATCH TD SCH (08:46)
[2021-01-18] MEDS: Folic Acid 1 MG TAB PO SCH (08:47)
[2021-01-18] MEDS: Cyanocobalamin (Vitamin B-12) 1,000 MCG TAB PO SCH (08:47)
[2021-01-18] MEDS: Pantoprazole 40 MG GRANULES PACKET PO SCH ×2 (08:47→20:00)
[2021-01-18] MEDS: Multivit, Therapeutic 1 TAB PO SCH (08:47)
[2021-01-18] MEDS: Enoxaparin Sodium 30 MG/0.3 ML SYRINGE SC SCH (08:49)
[2021-01-18] MEDS: Acetaminophen 650 MG/20.3 ML UDCUP PO PRN (09:12)
[2021-01-18] MEDS: Temazepam 15 MG CAP PO PRN (19:59)
[2021-01-18] MEDS: Atorvastatin Calcium 20 MG TAB PO SCH (20:00)
[2021-01-18] MEDS: Cyclobenzaprine 10 MG TAB PO PRN (20:00)
[2021-01-19] MEDS: Piperacillin/Tazobactam 3.375 GM in Sodium Chloride 0.9% 100 ML IVPB SCH ×3 (05:40→18:34)
[2021-01-19] MEDS: Budesonide 0.25 MG/2 ML NEB INH SCH ×2 (07:27→18:46)
[2021-01-19] MEDS: Cyanocobalamin (Vitamin B-12) 1,000 MCG TAB PO SCH (08:37)
[2021-01-19] MEDS: Pantoprazole 40 MG GRANULES PACKET PO SCH ×2 (08:38→21:34)
[2021-01-19] MEDS: Losartan 25 MG TAB PO SCH (08:38)
[2021-01-19] MEDS: Multivit, Therapeutic 1 TAB PO SCH (08:38)
[2021-01-19] MEDS: Folic Acid 1 MG TAB PO SCH (08:38)
[2021-01-19] MEDS: Enoxaparin Sodium 30 MG/0.3 ML SYRINGE SC SCH (08:39)
[2021-01-19] MEDS: Nicotine 21 MG PATCH TD SCH (08:40)
[2021-01-19] MEDS: predniSONE 20 MG TAB PO SCH (08:50)
[2021-01-19] MEDS: Acetaminophen 650 MG/20.3 ML UDCUP PO PRN (10:09)
[2021-01-19 12:15] LABS: Fungus Stain Final report (.)
[2021-01-19] MEDS: Cyclobenzaprine 10 MG TAB PO PRN (21:34)
[2021-01-19] MEDS: Atorvastatin Calcium 20 MG TAB PO SCH (21:34)
[2021-01-19] MEDS: Temazepam 15 MG CAP PO PRN (21:34)
[2021-01-20] MEDS: Piperacillin/Tazobactam 3.375 GM in Sodium Chloride 0.9% 100 ML IVPB SCH ×5 (00:13→23:40)
[2021-01-20] MEDS: Budesonide 0.25 MG/2 ML NEB INH SCH ×2 (06:55→19:55)
[2021-01-20 09:03] LABS: #Eosinphils 0.6 thou/uL (0.0-0.7); #Lymphocytes 4.6 thou/uL (1.20-3.40); #Monocytes 1.9 thou/uL (0.11-0.59); #Neutrophils 16.4 thou/uL (1.40-6.50); %Basophils 0.2 % (0.0-1.0); %Eosinophils 2.4 % (0.0-10.0); %Lymphocytes 19.6 % (21.0-51.0); %Monocytes 7.9 % (0.0-10.0); %Neutrophils 69.9 % (42.0-75.0); Hemoglobin 10.6 g/dL (12.0-16.0); Mean Corpuscular HGB CONC 31.4 g/dL (32.0-36.0); Mean Corpuscular Hemoglobin 26.4 pg (27.0-31.0); Mean Corpuscular Volume 84.1 fL (78.0-98.0); Mean Platelet Volume 6.3 fL (7.4-10.4); Platelet Count 537 thou/uL (130-400); RBC Distribution Width 16.6 % (11.5-14.5); White Blood Cell (WBC) Count 23.4 thou/uL (4.8-10.8)
[2021-01-20 09:28] LABS: ALT (SGPT) 16 U/L (8-55); AST (SGOT) 19 U/L (5-34); Albumin 3.6 g/dL (3.4-4.8); Alkaline Phosphatase 79 U/L (40-110); Anion Gap 14 mmol/L (10-20); BUN (Urea Nitrogen) 23 mg/dL (9.8-20.1); Bilirubin, Total 0.5 mg/dL (0.2-1.2); Calc. Creatinine Clearance 41 mL/min (70-130); Calcium 9.9 mg/dL (7.8-10.44); Carbon Dioxide 26 mmol/L (23-31); Chloride 95 mmol/L (98-107); Globulin 3.5 g/dL (2.4-3.5); Glucose 171 mg/dL (80-115); Phosphorus 3.4 mg/dL (2.3-4.7); Potassium 4.2 mmol/L (3.5-5.1); Protein, Total 7.1 g/dL (5.8-8.1); Sodium 131 mmol/L (136-145)
[2021-01-20] MEDS: Cyanocobalamin (Vitamin B-12) 1,000 MCG TAB PO SCH (09:38)
[2021-01-20] MEDS: predniSONE 20 MG TAB PO SCH (09:38)
[2021-01-20] MEDS: Folic Acid 1 MG TAB PO SCH (09:38)
[2021-01-20] MEDS: Multivit, Therapeutic 1 TAB PO SCH (09:39)
[2021-01-20] MEDS: Enoxaparin Sodium 30 MG/0.3 ML SYRINGE SC SCH (09:39)
[2021-01-20] MEDS: Losartan 25 MG TAB PO SCH (09:39)
[2021-01-20] MEDS: Pantoprazole 40 MG GRANULES PACKET PO SCH ×2 (09:39→22:24)
[2021-01-20] MEDS: Nicotine 21 MG PATCH TD SCH (09:39)
[2021-01-20] MEDS: Acetaminophen 650 MG/20.3 ML UDCUP PO PRN ×2 (09:50→18:07)
[2021-01-20] MEDS ORDERED: Polyethylene Glycol 3350 17 GM Packet PO PRN (10:53)
[2021-01-20] MEDS ORDERED: Saccharomyces boulardii 250 MG CAP PO SCH (21:00)
[2021-01-20] MEDS: Atorvastatin Calcium 20 MG TAB PO SCH (22:24)
[2021-01-20] MEDS: Temazepam 15 MG CAP PO PRN (22:26)
[2021-01-20] MEDS: Cyclobenzaprine 10 MG TAB PO PRN (22:27)
[2021-01-21] MEDS: Ondansetron PF 4 MG/2 ML Vial IVP PRN ×3 (02:24→19:21)
[2021-01-21] MEDS: Piperacillin/Tazobactam 3.375 GM in Sodium Chloride 0.9% 100 ML IVPB SCH ×3 (05:25→17:38)
[2021-01-21] MEDS: Budesonide 0.25 MG/2 ML NEB INH SCH ×2 (06:32→18:42)
[2021-01-21] MEDS: Acetaminophen 650 MG/20.3 ML UDCUP PO PRN ×2 (08:19→21:01)
[2021-01-21] MEDS: predniSONE 20 MG TAB PO SCH (08:19)
[2021-01-21] MEDS: Cyanocobalamin (Vitamin B-12) 1,000 MCG TAB PO SCH (08:19)
[2021-01-21] MEDS: Losartan 25 MG TAB PO SCH (08:19)
[2021-01-21] MEDS: Pantoprazole 40 MG GRANULES PACKET PO SCH ×2 (08:19→22:10)
[2021-01-21] MEDS: Multivit, Therapeutic 1 TAB PO SCH (08:19)
[2021-01-21] MEDS: Folic Acid 1 MG TAB PO SCH (08:19)
[2021-01-21] MEDS: Nicotine 21 MG PATCH TD SCH (08:21)
[2021-01-21] MEDS: Enoxaparin Sodium 30 MG/0.3 ML SYRINGE SC SCH (08:21)
[2021-01-21 08:50] LABS: #Eosinphils 0.8 thou/uL (0.0-0.7); #Lymphocytes 2.9 thou/uL (1.20-3.40); #Monocytes 1.5 thou/uL (0.11-0.59); #Neutrophils 16.9 thou/uL (1.40-6.50); %Basophils 0.1 % (0.0-1.0); %Eosinophils 3.6 % (0.0-10.0); %Monocytes 6.8 % (0.0-10.0); %Neutrophils 76.5 % (42.0-75.0); Hemoglobin 9.5 g/dL (12.0-16.0); Mean Corpuscular HGB CONC 30.8 g/dL (32.0-36.0); Mean Corpuscular Hemoglobin 26.1 pg (27.0-31.0); Mean Corpuscular Volume 84.6 fL (78.0-98.0); Mean Platelet Volume 6.5 fL (7.4-10.4); Platelet Count 490 thou/uL (130-400); RBC Distribution Width 17.1 % (11.5-14.5); Red Blood Cell (RBC) Count 3.65 mill/uL (4.20-5.40); White Blood Cell (WBC) Count 22.1 thou/uL (4.8-10.8)
[2021-01-21 09:10] LABS: Anion Gap 15 mmol/L (10-20); BUN (Urea Nitrogen) 20 mg/dL (9.8-20.1); Calc. Creatinine Clearance 46 mL/min (70-130); Calcium 9.7 mg/dL (7.8-10.44); Carbon Dioxide 22 mmol/L (23-31); Chloride 98 mmol/L (98-107); Glucose 208 mg/dL (80-115); Potassium 4.2 mmol/L (3.5-5.1); Sodium 131 mmol/L (136-145)
[2021-01-21] MEDS: cloNIDine 0.1 MG TAB PO PRN ×2 (11:44→22:09)
[2021-01-21 16:42] LABS: Troponin I Less than 0.010 ng/mL (< 0.028)
[2021-01-21] MEDS: Atorvastatin Calcium 20 MG TAB PO SCH (22:10)
[2021-01-22] MEDS: Piperacillin/Tazobactam 3.375 GM in Sodium Chloride 0.9% 100 ML IVPB SCH ×3 (00:23→18:40)
[2021-01-22] MEDS: Cyclobenzaprine 10 MG TAB PO PRN ×2 (00:25→20:55)
[2021-01-22] MEDS: Temazepam 15 MG CAP PO PRN ×2 (00:26→20:55)
[2021-01-22] MEDS: Budesonide 0.25 MG/2 ML NEB INH SCH ×2 (07:05→18:49)
[2021-01-22] MEDS: predniSONE 20 MG TAB PO SCH (08:54)
[2021-01-22] MEDS: Folic Acid 1 MG TAB PO SCH (08:54)
[2021-01-22] MEDS: Multivit, Therapeutic 1 TAB PO SCH (08:54)
[2021-01-22] MEDS: Nicotine 21 MG PATCH TD SCH (08:54)
[2021-01-22] MEDS: Cyanocobalamin (Vitamin B-12) 1,000 MCG TAB PO SCH (08:54)
[2021-01-22] MEDS: Pantoprazole 40 MG GRANULES PACKET PO SCH ×2 (08:54→20:53)
[2021-01-22] MEDS: Enoxaparin Sodium 30 MG/0.3 ML SYRINGE SC SCH (08:55)
[2021-01-22 10:53] LABS: Anion Gap 19 mmol/L (10-20); BUN (Urea Nitrogen) 22 mg/dL (9.8-20.1); Calc. Creatinine Clearance 43 mL/min (70-130); Calcium 9.7 mg/dL (7.8-10.44); Carbon Dioxide 20 mmol/L (23-31); Chloride 100 mmol/L (98-107); Glucose 167 mg/dL (80-115); Potassium 4.9 mmol/L (3.5-5.1); Sodium 134 mmol/L (136-145)
[2021-01-22 11:53] LABS: Hemoglobin 9.2 g/dL (12.0-16.0); Mean Corpuscular HGB CONC 31.3 g/dL (32.0-36.0); Mean Corpuscular Hemoglobin 26.8 pg (27.0-31.0); Mean Corpuscular Volume 85.5 fL (78.0-98.0); Mean Platelet Volume 7.2 fL (7.4-10.4); Platelet Count 447 thou/uL (130-400); RBC Distribution Width 17.4 % (11.5-14.5); Red Blood Cell (RBC) Count 3.44 mill/uL (4.20-5.40); White Blood Cell (WBC) Count 21.8 thou/uL (4.8-10.8)
[2021-01-22 12:47] LABS: Band 4 % (5-11); Eosinophils 2 % (0-10); Lymphocytes 18 % (21-51); MDiff Complete? YES; Metamyelocyte 1 % (0-0); Monocytes 4 % (0-10); Neutrophil 71 % (42-75); Platelet Morphology Comment Appears Increased; Polychromasia SLIGHT = 2-3 cells (100X) (0-2/hpf)
[2021-01-22] MEDS ORDERED: Temazepam 15 MG CAP PO PRN (13:04)
[2021-01-22] MEDS: Losartan 25 MG TAB PO SCH (13:19)
[2021-01-22] MEDS: Acetaminophen 650 MG/20.3 ML UDCUP PO PRN (13:27)
[2021-01-22] MEDS: Atorvastatin Calcium 20 MG TAB PO SCH (20:54)
[2021-01-23] MEDS: Piperacillin/Tazobactam 3.375 GM in Sodium Chloride 0.9% 100 ML IVPB SCH ×3 (00:43→11:30)
[2021-01-23] MEDS: Acetaminophen 650 MG/20.3 ML UDCUP PO PRN ×2 (00:48→11:29)
[2021-01-23 06:13] LABS: #Eosinphils 0.8 thou/uL (0.0-0.7); #Lymphocytes 2.9 thou/uL (1.20-3.40); #Monocytes 1.4 thou/uL (0.11-0.59); #Neutrophils 12.4 thou/uL (1.40-6.50); %Basophils 0.1 % (0.0-1.0); %Eosinophils 4.4 % (0.0-10.0); %Lymphocytes 16.4 % (21.0-51.0); %Monocytes 8.2 % (0.0-10.0); Mean Corpuscular HGB CONC 31.4 g/dL (32.0-36.0); Mean Corpuscular Hemoglobin 26.8 pg (27.0-31.0); Mean Corpuscular Volume 85.1 fL (78.0-98.0); Mean Platelet Volume 6.9 fL (7.4-10.4); Platelet Count 410 thou/uL (130-400); RBC Distribution Width 17.1 % (11.5-14.5); Red Blood Cell (RBC) Count 3.37 mill/uL (4.20-5.40); White Blood Cell (WBC) Count 17.5 thou/uL (4.8-10.8)
[2021-01-23 06:34] LABS: Anion Gap 15 mmol/L (10-20); BUN (Urea Nitrogen) 22 mg/dL (9.8-20.1); Calc. Creatinine Clearance 42 mL/min (70-130); Calcium 9.4 mg/dL (7.8-10.44); Carbon Dioxide 22 mmol/L (23-31); Chloride 98 mmol/L (98-107); Glucose 171 mg/dL (80-115); Potassium 4.1 mmol/L (3.5-5.1); Sodium 131 mmol/L (136-145)
[2021-01-23] MEDS: Budesonide 0.25 MG/2 ML NEB INH SCH ×2 (06:53→19:12)
[2021-01-23] MEDS: Ondansetron PF 4 MG/2 ML Vial IVP PRN (08:46)
[2021-01-23] MEDS: Enoxaparin Sodium 30 MG/0.3 ML SYRINGE SC SCH (08:47)
[2021-01-23] MEDS: Pantoprazole 40 MG GRANULES PACKET PO SCH ×2 (08:49→21:07)
[2021-01-23] MEDS: Multivit, Therapeutic 1 TAB PO SCH (08:49)
[2021-01-23] MEDS: predniSONE 20 MG TAB PO SCH (08:49)
[2021-01-23] MEDS: Nicotine 21 MG PATCH TD SCH (08:49)
[2021-01-23] MEDS: Folic Acid 1 MG TAB PO SCH (08:49)
[2021-01-23] MEDS: Losartan 25 MG TAB PO SCH (08:49)
[2021-01-23] MEDS: Cyanocobalamin (Vitamin B-12) 1,000 MCG TAB PO SCH (08:49)
[2021-01-23] MEDS ORDERED: Ondansetron ODT 8 MG TAB SL PRN (10:58)
[2021-01-23] MEDS: cloNIDine 0.1 MG TAB PO PRN (12:50)
[2021-01-23] MEDS: Ibuprofen 100 MG/5 ML UDCUP PO SCH (21:05)
[2021-01-23] MEDS: Temazepam 15 MG CAP PO PRN (21:07)
[2021-01-23] MEDS: Atorvastatin Calcium 20 MG TAB PO SCH (21:07)
[2021-01-23] MEDS ORDERED: Ibuprofen 100 MG/5 ML UDCUP PO SCH (23:59)
[2021-01-24] MEDS: Ibuprofen 100 MG/5 ML UDCUP PO SCH ×3 (03:29→15:27)
[2021-01-24 05:59] LABS: #Basophils 0.1 thou/uL (0.0-0.2); #Eosinphils 0.7 thou/uL (0.0-0.7); #Lymphocytes 3.4 thou/uL (1.20-3.40); #Monocytes 1.4 thou/uL (0.11-0.59); #Neutrophils 9.9 thou/uL (1.40-6.50); %Basophils 0.6 % (0.0-1.0); %Eosinophils 4.7 % (0.0-10.0); %Lymphocytes 21.9 % (21.0-51.0); %Monocytes 8.8 % (0.0-10.0); Hemoglobin 9.4 g/dL (12.0-16.0); Mean Corpuscular HGB CONC 30.7 g/dL (32.0-36.0); Mean Corpuscular Hemoglobin 26.3 pg (27.0-31.0); Mean Corpuscular Volume 85.8 fL (78.0-98.0); Mean Platelet Volume 6.9 fL (7.4-10.4); Platelet Count 423 thou/uL (130-400); RBC Distribution Width 17.1 % (11.5-14.5); Red Blood Cell (RBC) Count 3.58 mill/uL (4.20-5.40); White Blood Cell (WBC) Count 15.4 thou/uL (4.8-10.8)
[2021-01-24] MEDS: Budesonide 0.25 MG/2 ML NEB INH SCH (06:09)
[2021-01-24 06:27] LABS: Anion Gap 16 mmol/L (10-20); BUN (Urea Nitrogen) 20 mg/dL (9.8-20.1); Calc. Creatinine Clearance 48 mL/min (70-130); Calcium 9.7 mg/dL (7.8-10.44); Carbon Dioxide 21 mmol/L (23-31); Chloride 99 mmol/L (98-107); Glucose 132 mg/dL (80-115); Potassium 4.1 mmol/L (3.5-5.1); Sodium 132 mmol/L (136-145)
[2021-01-24 08:41] VITALS: TEMP 97.9
[2021-01-24] MEDS: Pantoprazole 40 MG GRANULES PACKET PO SCH (09:23)
[2021-01-24] MEDS: predniSONE 20 MG TAB PO SCH (09:23)
[2021-01-24] MEDS: Enoxaparin Sodium 30 MG/0.3 ML SYRINGE SC SCH (09:23)
[2021-01-24] MEDS: Losartan 25 MG TAB PO SCH (09:23)
[2021-01-24] MEDS: Nicotine 21 MG PATCH TD SCH (11:09)
[2021-01-24] MEDS: cloNIDine 0.1 MG TAB PO PRN (15:36)
[2021-01-24 15:37] VITALS: BP 168/78
== END 2021-01-24 16:33 | disposition swing bed (61) | DRG 180 ==
LOC: 2NO 18:55 → T4-A 01-14 11:14 → CCU 01-16 11:16 → T4-B 01-16 17:09
PROVIDERS: ADMIT Hospitalist; ATTEND Internal Medicine
PROC: 0BDG8ZX Extraction of Left Upper Lung Lobe, Via Natural or Artificial Opening Endoscopic, Diagnostic (ICD-10-PCS; principal; 2021-01-16)
DX: C34.12 Malignant neoplasm of upper lobe, left bronchus or lung (principal); J96.01 Acute respiratory failure with hypoxia; E43 Unspecified severe protein-calorie malnutrition; E22.2 Syndrome of inappropriate secretion of antidiuretic hormone; J98.11 Atelectasis; E87.2 Acidosis; R64 Cachexia; J93.9 Pneumothorax, unspecified; Z20.822 Contact with and (suspected) exposure to COVID-19; Z66 Do not resuscitate; E87.5 Hyperkalemia; J43.9 Emphysema, unspecified; F17.210 Nicotine dependence, cigarettes, uncomplicated; I10 Essential (primary) hypertension; E78.5 Hyperlipidemia, unspecified; E53.8 Deficiency of other specified B group vitamins; K21.9 Gastro-esophageal reflux disease without esophagitis; K31.84 Gastroparesis; K22.2 Esophageal obstruction; K43.9 Ventral hernia without obstruction or gangrene; D63.8 Anemia in other chronic diseases classified elsewhere; M62.830 Muscle spasm of back; Z88.1 Allergy status to other antibiotic agents; Z88.5 Allergy status to narcotic agent; Z79.899 Other long term (current) drug therapy; Z68.21 Body mass index [BMI] 21.0-21.9, adult; Z85.3 Personal history of malignant neoplasm of breast; Z90.11 Acquired absence of right breast and nipple; Z90.710 Acquired absence of both cervix and uterus; Z87.01 Personal history of pneumonia (recurrent); Z91.11 Patient's noncompliance with dietary regimen; Z93.4 Other artificial openings of gastrointestinal tract status; R13.10 Dysphagia, unspecified
CPT/HCPCS: 36415; 71045; 71046; 71250; 71275; 80048; 80053; 80202; 81001; 82533; 83735; 83930; 83935; 84100; 84300; 84484; 85025; 85060; 85610; 85730; 87070; 87102; 87116; 87205; 87206; 87635; 88112; 88305; 88341; 88342; 88360; 88377; 93005; 93010; 94640; J1100; J1650; J1885; J2405; J2543; J2704; J2920; J3010; J3370; J3490; J7050; J7512; J7620; J7626; U0003; U0005

== ENCOUNTER 2021-02-06 11:52 | Inpatient (IN) | payer MEDICARE ==
[2021-02-06 13:33] LABS: #Lymphocytes 1.1 thou/uL (1.20-3.40); #Monocytes 0.6 thou/uL (0.11-0.59); #Neutrophils 11.8 thou/uL (1.40-6.50); %Basophils 0.1 % (0.0-1.0); %Eosinophils 0.1 % (0.0-10.0); %Monocytes 4.1 % (0.0-10.0); %Neutrophils 87.7 % (42.0-75.0); Hemoglobin 10.8 g/dL (12.0-16.0); Mean Corpuscular HGB CONC 32.8 g/dL (32.0-36.0); Mean Corpuscular Volume 85.3 fL (78.0-98.0); Mean Platelet Volume 6.8 fL (7.4-10.4); Platelet Count 435 thou/uL (130-400); RBC Distribution Width 17.1 % (11.5-14.5); Red Blood Cell (RBC) Count 3.85 mill/uL (4.20-5.40); White Blood Cell (WBC) Count 13.4 thou/uL (4.8-10.8)
[2021-02-06 13:54] LABS: Acetaminophen Less than 6.0 mcg/mL (10.0-30.0); Alcohol Less than 10 mg/dL (Less than 10); Salicylate Less than 8.0 mg/dL (15.0-30.0)
[2021-02-06 14:03] LABS: ALT (SGPT) 83 U/L (8-55); AST (SGOT) 63 U/L (5-34); Albumin 3.3 g/dL (3.4-4.8); Alkaline Phosphatase 89 U/L (40-110); Anion Gap 14 mmol/L (10-20); BUN (Urea Nitrogen) 38 mg/dL (9.8-20.1); Bilirubin, Total 0.2 mg/dL (0.2-1.2); Calc. Creatinine Clearance 0 mL/min (70-130); Calcium 9.7 mg/dL (7.8-10.44); Carbon Dioxide 26 mmol/L (23-31); Chloride 96 mmol/L (98-107); Globulin 3.8 g/dL (2.4-3.5); Glucose 284 mg/dL (80-115); Potassium 4.9 mmol/L (3.5-5.1); Protein, Total 7.1 g/dL (5.8-8.1); Sodium 131 mmol/L (136-145)
[2021-02-06 14:39] LABS: Bilirubin Negative (Negative); Blood, Urine Negative (Negative); Clarity Clear (Clear); Glucose, Urine (Dipstick) Greater than 1000 mg/dL (Negative); Ketone, Urine Negative (Negative); Leukocyte Negative Leu/uL (Negative); Nitrite Negative (Negative); Protein, Urine (Dipstick) 10 mg/dL (Neg-Trace); Specific Gravity, Urine 1.016 (1.002-1.036); Urobilinogen Normal mg/dL (Less than 2); pH, Urine 7.5 (5.0-9.0)
[2021-02-06 15:33] LABS: Pregnancy Test - Urine (BHCG) Negative (Negative)
[2021-02-06 15:34] LABS: Pregu Control Background? CLEAR/WHITE (CLR/WHITE); Pregu Control Bar Appear? YES (CONTROL BAR); Specific Gravity 1.016 (1.002-1.036)
[2021-02-06 15:47] LABS: Amphetamine Not Detected (NotDetected); Benzodiazepine Screen Not Detected (NotDetected); Cocaine Metabolite Screen Not Detected (NotDetected); Medtox Reader # READER 4; Methamphetamine Not Detected (NotDetected); Opiate Screen Not Detected (NotDetected); Phencyclidine (PCP) Not Detected (NotDetected); THC/Cannabinoid Screen Not Detected (NotDetected)
[2021-02-06 15:48] LABS: Barbiturates Screen Not Detected (NotDetected); Medtox Control Line Valid? VALID (VALID); Methadone Not Detected (NotDetected); Oxycodone Screen Not Detected (NotDetected); Tricyclic Screen Not Detected (NotDetected)
[2021-02-06] MEDS ORDERED: Ondansetron ODT 4 MG TAB SL PRN (19:45)
[2021-02-06] MEDS ORDERED: Acetaminophen 325 MG TAB PO PRN (19:45)
[2021-02-06] MEDS ORDERED: Ondansetron PF 4 MG/2 ML Vial IVP PRN (19:45)
[2021-02-06] MEDS ORDERED: Benzonatate 100 MG CAP PO PRN (20:20)
[2021-02-06] MEDS ORDERED: Dextrose 50% Abboject 50 ML SYRINGE SLOW IVP PRN (21:03)
[2021-02-06] MEDS ORDERED: Dextrose 5% in Water 1,000 ML IV PRN (21:03)
[2021-02-06] MEDS: cefTRIAXone\\ROCEPHIN 1 GM in Sodium Chloride 0.9% 100 ML IVPB SCH (22:22)
[2021-02-06] MEDS: guaiFENesin 200 MG TAB PO PRN (22:22)
[2021-02-07 06:29] LABS: Anion Gap 17 mmol/L (10-20); BUN (Urea Nitrogen) 32 mg/dL (9.8-20.1); Calc. Creatinine Clearance 46 mL/min (70-130); Calcium 10.4 mg/dL (7.8-10.44); Carbon Dioxide 24 mmol/L (23-31); Chloride 98 mmol/L (98-107); Glucose 113 mg/dL (80-115); Potassium 4.8 mmol/L (3.5-5.1); Sodium 134 mmol/L (136-145)
[2021-02-07 06:36] LABS: #Basophils 0.1 thou/uL (0.0-0.2); #Eosinphils 0.1 thou/uL (0.0-0.7); #Lymphocytes 4.4 thou/uL (1.20-3.40); #Monocytes 1.7 thou/uL (0.11-0.59); %Basophils 0.3 % (0.0-1.0); %Eosinophils 0.6 % (0.0-10.0); %Monocytes 8.7 % (0.0-10.0); %Neutrophils 67.4 % (42.0-75.0); Hemoglobin 10.7 g/dL (12.0-16.0); Mean Corpuscular HGB CONC 32.8 g/dL (32.0-36.0); Mean Corpuscular Hemoglobin 28.1 pg (27.0-31.0); Mean Corpuscular Volume 85.7 fL (78.0-98.0); Mean Platelet Volume 6.7 fL (7.4-10.4); Platelet Count 562 thou/uL (130-400); RBC Distribution Width 17.3 % (11.5-14.5); Red Blood Cell (RBC) Count 3.81 mill/uL (4.20-5.40); White Blood Cell (WBC) Count 19.2 thou/uL (4.8-10.8)
[2021-02-07 07:57] LABS: SARS-CoV-2 NAA Rapid Test Not Detected (NotDetected)
[2021-02-07] MEDS ORDERED: methylPREDNISolone Sod Succ 40 MG VIAL IVP SCH (09:00)
[2021-02-07] MEDS: guaiFENesin 200 MG TAB PO PRN (09:06)
[2021-02-07] MEDS: Enoxaparin Sodium 40 MG/0.4 ML SYRINGE SC SCH (09:06)
[2021-02-07] MEDS: HYDROcodone/Acetaminophen 5/325 mg Tablet PO PRN ×2 (12:39→21:28)
[2021-02-07] MEDS: Nicotine 14 MG PATCH TD SCH (12:39)
[2021-02-07] MEDS ORDERED: cloNIDine 0.1 MG TAB PER TUBE PRN (14:30)
[2021-02-07] MEDS ORDERED: Doxycycline 100 MG in Syringe 0 ML IVPB SCH (14:32)
[2021-02-07 14:43] LABS: Hemoglobin A1c 7.1 % (4.0-6.0)
[2021-02-07] MEDS: methylPREDNISolone Sod Succ 40 MG VIAL IVP SCH (18:28)
[2021-02-07] MEDS: Atorvastatin Calcium 20 MG TAB PER TUBE SCH (21:25)
[2021-02-07] MEDS: Pantoprazole 40 MG GRANULES PACKET PER TUBE SCH (21:25)
[2021-02-07] MEDS: Insulin Regular 300 UNITS/3 ML VIAL SC PRN (22:21)
[2021-02-08] MEDS: cefTRIAXone\\ROCEPHIN 1 GM in Sodium Chloride 0.9% 100 ML IVPB SCH ×2 (02:10→20:50)
[2021-02-08] MEDS: methylPREDNISolone Sod Succ 40 MG VIAL IVP SCH ×6 (02:11→23:15)
[2021-02-08] MEDS: HumaLOG 300 UNITS/3 ML VIAL SC PRN ×3 (06:02→17:20)
[2021-02-08] MEDS: Enoxaparin Sodium 40 MG/0.4 ML SYRINGE SC SCH (08:05)
[2021-02-08] MEDS: Pantoprazole 40 MG GRANULES PACKET PER TUBE SCH ×2 (08:05→20:50)
[2021-02-08 08:59] LABS: Anisocytosis SLIGHT = 6-15 cells (100X) (0-5/hpf); Band 2 % (5-11); Eosinophils 1 % (0-10); Hemoglobin 11.4 g/dL (12.0-16.0); Lymphocytes 35 % (21-51); MDiff Complete? YES; Mean Corpuscular HGB CONC 33.4 g/dL (32.0-36.0); Mean Corpuscular Hemoglobin 28.8 pg (27.0-31.0); Mean Corpuscular Volume 86.3 fL (78.0-98.0); Mean Platelet Volume 7.1 fL (7.4-10.4); Monocytes 3 % (0-10); Neutrophil 59 % (42-75); Platelet Count 507 thou/uL (130-400); Platelet Morphology Comment Appears Increased; RBC Distribution Width 17.3 % (11.5-14.5); Red Blood Cell (RBC) Count 3.96 mill/uL (4.20-5.40)
[2021-02-08] MEDS ORDERED: Non-Formulary Item 1 EACH (Umeclidinium Brm/Vilanterol Tr [Anoro Ellipta] 62.5 MCG/25 MCG IH SCH (09:00)
[2021-02-08] MEDS: Nicotine 14 MG PATCH TD SCH (10:52)
[2021-02-08] MEDS: Atorvastatin Calcium 20 MG TAB PER TUBE SCH (20:50)
[2021-02-08] MEDS: HYDROcodone/Acetaminophen 5/325 mg Tablet PO PRN (21:24)
[2021-02-08] MEDS: Insulin Regular 300 UNITS/3 ML VIAL SC PRN (21:25)
[2021-02-09] MEDS: methylPREDNISolone Sod Succ 40 MG VIAL IVP SCH (04:27)
[2021-02-09] MEDS: HumaLOG 300 UNITS/3 ML VIAL SC PRN ×3 (05:28→16:18)
[2021-02-09 06:04] LABS: #Eosinphils 0.1 thou/uL (0.0-0.7); #Lymphocytes 1.7 thou/uL (1.20-3.40); #Monocytes 0.6 thou/uL (0.11-0.59); #Neutrophils 13.1 thou/uL (1.40-6.50); %Basophils 0.2 % (0.0-1.0); %Eosinophils 0.5 % (0.0-10.0); %Lymphocytes 11.1 % (21.0-51.0); %Neutrophils 84.2 % (42.0-75.0); Hemoglobin 10.3 g/dL (12.0-16.0); Mean Corpuscular HGB CONC 31.5 g/dL (32.0-36.0); Mean Corpuscular Hemoglobin 27.1 pg (27.0-31.0); Mean Corpuscular Volume 86.1 fL (78.0-98.0); Platelet Count 570 thou/uL (130-400); RBC Distribution Width 17.3 % (11.5-14.5); Red Blood Cell (RBC) Count 3.79 mill/uL (4.20-5.40); White Blood Cell (WBC) Count 15.6 thou/uL (4.8-10.8)
[2021-02-09 06:24] LABS: Anion Gap 17 mmol/L (10-20); BUN (Urea Nitrogen) 53 mg/dL (9.8-20.1); Calc. Creatinine Clearance 36 mL/min (70-130); Carbon Dioxide 20 mmol/L (23-31); Chloride 101 mmol/L (98-107); Glucose 309 mg/dL (80-115); Potassium 4.6 mmol/L (3.5-5.1); Sodium 133 mmol/L (136-145)
[2021-02-09] MEDS ORDERED: predniSONE 20 MG TAB PO SCH (08:00)
[2021-02-09] MEDS: Pantoprazole 40 MG GRANULES PACKET PER TUBE SCH ×2 (08:07→20:45)
[2021-02-09] MEDS: Enoxaparin Sodium 40 MG/0.4 ML SYRINGE SC SCH (08:07)
[2021-02-09] MEDS: Lantus 1000 UNITS/10 ML VIAL SC SCH (09:41)
[2021-02-09] MEDS: Losartan 25 MG TAB PER TUBE SCH (09:41)
[2021-02-09] MEDS: Nicotine 14 MG PATCH TD SCH (10:51)
[2021-02-09] MEDS ORDERED: Metoprolol Tartrate 25 MG TAB PO SCH (11:45)
[2021-02-09] MEDS: Metoprolol Tartrate 25 MG TAB PO SCH (20:46)
[2021-02-09] MEDS: Atorvastatin Calcium 20 MG TAB PER TUBE SCH (20:46)
[2021-02-09] MEDS: Insulin Regular 300 UNITS/3 ML VIAL SC PRN (21:02)
[2021-02-10 06:15] LABS: #Eosinphils 0.3 thou/uL (0.0-0.7); #Lymphocytes 4.8 thou/uL (1.20-3.40); #Monocytes 1.3 thou/uL (0.11-0.59); #Neutrophils 11.8 thou/uL (1.40-6.50); %Eosinophils 1.7 % (0.0-10.0); %Lymphocytes 26.4 % (21.0-51.0); %Monocytes 7.4 % (0.0-10.0); %Neutrophils 64.5 % (42.0-75.0); Hemoglobin 10.2 g/dL (12.0-16.0); Mean Corpuscular HGB CONC 32.1 g/dL (32.0-36.0); Mean Corpuscular Hemoglobin 27.6 pg (27.0-31.0); Mean Corpuscular Volume 86.1 fL (78.0-98.0); Mean Platelet Volume 6.9 fL (7.4-10.4); Platelet Count 552 thou/uL (130-400); RBC Distribution Width 17.2 % (11.5-14.5); Red Blood Cell (RBC) Count 3.68 mill/uL (4.20-5.40); White Blood Cell (WBC) Count 18.3 thou/uL (4.8-10.8)
[2021-02-10 06:34] LABS: Anion Gap 16 mmol/L (10-20); BUN (Urea Nitrogen) 49 mg/dL (9.8-20.1); Calc. Creatinine Clearance 40 mL/min (70-130); Carbon Dioxide 25 mmol/L (23-31); Chloride 99 mmol/L (98-107); Glucose 185 mg/dL (80-115); Potassium 4.8 mmol/L (3.5-5.1); Sodium 135 mmol/L (136-145)
[2021-02-10] MEDS: Losartan 25 MG TAB PER TUBE SCH (08:47)
[2021-02-10] MEDS: predniSONE 20 MG TAB PO SCH (08:47)
[2021-02-10] MEDS: Pantoprazole 40 MG GRANULES PACKET PER TUBE SCH ×2 (08:48→20:56)
[2021-02-10] MEDS: Metoprolol Tartrate 25 MG TAB PO SCH ×2 (08:48→20:56)
[2021-02-10] MEDS: Lantus 1000 UNITS/10 ML VIAL SC SCH (08:48)
[2021-02-10] MEDS: Enoxaparin Sodium 40 MG/0.4 ML SYRINGE SC SCH (08:48)
[2021-02-10] MEDS: Nicotine 14 MG PATCH TD SCH (11:52)
[2021-02-10] MEDS: HumaLOG 300 UNITS/3 ML VIAL SC PRN ×2 (12:00→16:17)
[2021-02-10] MEDS: diphenhydrAMINE 25 MG CAP PER TUBE PRN (20:55)
[2021-02-10] MEDS: Atorvastatin Calcium 20 MG TAB PER TUBE SCH (20:56)
[2021-02-11] MEDS: predniSONE 20 MG TAB PO SCH (08:49)
[2021-02-11] MEDS: Pantoprazole 40 MG GRANULES PACKET PER TUBE SCH ×2 (08:49→20:37)
[2021-02-11] MEDS: Enoxaparin Sodium 40 MG/0.4 ML SYRINGE SC SCH (08:49)
[2021-02-11] MEDS: Lantus 1000 UNITS/10 ML VIAL SC SCH (08:49)
[2021-02-11] MEDS: Losartan 25 MG TAB PER TUBE SCH (08:49)
[2021-02-11] MEDS: Metoprolol Tartrate 25 MG TAB PO SCH ×2 (09:12→20:38)
[2021-02-11] MEDS: Nicotine 14 MG PATCH TD SCH (12:06)
[2021-02-11] MEDS: HumaLOG 300 UNITS/3 ML VIAL SC PRN ×2 (12:07→16:27)
[2021-02-11] MEDS: Atorvastatin Calcium 20 MG TAB PER TUBE SCH (20:37)
[2021-02-11] MEDS: guaiFENesin 200 MG TAB PO PRN (20:39)
[2021-02-11] MEDS: diphenhydrAMINE 25 MG CAP PER TUBE PRN (20:39)
[2021-02-12] MEDS: HYDROcodone/Acetaminophen 5/325 mg Tablet PO PRN (02:26)
[2021-02-12] MEDS: HumaLOG 300 UNITS/3 ML VIAL SC PRN ×3 (05:24→17:55)
[2021-02-12 07:49] LABS: #Eosinphils 0.5 thou/uL (0.0-0.7); #Lymphocytes 4.5 thou/uL (1.20-3.40); #Monocytes 1.6 thou/uL (0.11-0.59); %Basophils 0.2 % (0.0-1.0); %Eosinophils 2.8 % (0.0-10.0); %Lymphocytes 25.4 % (21.0-51.0); %Monocytes 9.1 % (0.0-10.0); %Neutrophils 62.6 % (42.0-75.0); Mean Corpuscular HGB CONC 31.9 g/dL (32.0-36.0); Mean Corpuscular Hemoglobin 27.7 pg (27.0-31.0); Mean Corpuscular Volume 86.8 fL (78.0-98.0); Platelet Count 500 thou/uL (130-400); RBC Distribution Width 17.3 % (11.5-14.5); Red Blood Cell (RBC) Count 3.96 mill/uL (4.20-5.40); White Blood Cell (WBC) Count 17.5 thou/uL (4.8-10.8)
[2021-02-12 08:19] LABS: Anion Gap 16 mmol/L (10-20); BUN (Urea Nitrogen) 51 mg/dL (9.8-20.1); Calc. Creatinine Clearance 36 mL/min (70-130); Calcium 9.7 mg/dL (7.8-10.44); Carbon Dioxide 27 mmol/L (23-31); Chloride 96 mmol/L (98-107); Glucose 171 mg/dL (80-115); Potassium 4.6 mmol/L (3.5-5.1); Sodium 134 mmol/L (136-145)
[2021-02-12] MEDS: Enoxaparin Sodium 40 MG/0.4 ML SYRINGE SC SCH (09:03)
[2021-02-12] MEDS: predniSONE 20 MG TAB PO SCH (09:03)
[2021-02-12] MEDS: Losartan 25 MG TAB PER TUBE SCH (09:04)
[2021-02-12] MEDS: Pantoprazole 40 MG GRANULES PACKET PER TUBE SCH ×2 (09:04→20:43)
[2021-02-12] MEDS: Metoprolol Tartrate 25 MG TAB PO SCH ×2 (09:04→20:44)
[2021-02-12] MEDS: Lantus 1000 UNITS/10 ML VIAL SC SCH (09:04)
[2021-02-12] MEDS: Nicotine 14 MG PATCH TD SCH (12:14)
[2021-02-12] MEDS: Atorvastatin Calcium 20 MG TAB PER TUBE SCH (20:43)
[2021-02-12] MEDS: guaiFENesin 200 MG TAB PO PRN (20:45)
[2021-02-12] MEDS: diphenhydrAMINE 25 MG CAP PER TUBE PRN (20:46)
[2021-02-13] MEDS: HYDROcodone/Acetaminophen 5/325 mg Tablet PO PRN (00:21)
[2021-02-13] MEDS: guaiFENesin 200 MG TAB PO PRN (00:21)
[2021-02-13] MEDS: GUAIFENESIN SF SOLN 200 MG/10 ML UDCUP PO PRN (05:28)
[2021-02-13] MEDS: HumaLOG 300 UNITS/3 ML VIAL SC PRN ×3 (05:28→18:08)
[2021-02-13] MEDS: predniSONE 20 MG TAB PO SCH (08:59)
[2021-02-13] MEDS: Metoprolol Tartrate 25 MG TAB PO SCH ×2 (08:59→20:34)
[2021-02-13] MEDS: Pantoprazole 40 MG GRANULES PACKET PER TUBE SCH ×2 (09:00→20:34)
[2021-02-13] MEDS: Losartan 25 MG TAB PER TUBE SCH (09:00)
[2021-02-13] MEDS: Enoxaparin Sodium 40 MG/0.4 ML SYRINGE SC SCH (09:00)
[2021-02-13] MEDS: Lantus 1000 UNITS/10 ML VIAL SC SCH (09:00)
[2021-02-13] MEDS: Nicotine 14 MG PATCH TD SCH (12:04)
[2021-02-13] MEDS: Atorvastatin Calcium 20 MG TAB PER TUBE SCH (20:34)
[2021-02-13] MEDS: HYDROcodone/Acetaminophen 10/325 mg Tablet PER TUBE PRN (23:03)
[2021-02-13] MEDS: diphenhydrAMINE 25 MG CAP PER TUBE PRN (23:04)
[2021-02-14] MEDS: HYDROcodone/Acetaminophen 10/325 mg Tablet PER TUBE PRN (05:30)
[2021-02-14] MEDS: GUAIFENESIN SF SOLN 200 MG/10 ML UDCUP PO PRN ×2 (05:30→20:39)
[2021-02-14] MEDS: Enoxaparin Sodium 40 MG/0.4 ML SYRINGE SC SCH (09:03)
[2021-02-14] MEDS: Losartan 25 MG TAB PER TUBE SCH (09:03)
[2021-02-14] MEDS: Metoprolol Tartrate 25 MG TAB PO SCH ×2 (09:04→20:38)
[2021-02-14] MEDS: Pantoprazole 40 MG GRANULES PACKET PER TUBE SCH ×2 (09:04→20:38)
[2021-02-14] MEDS: predniSONE 20 MG TAB PO SCH (09:05)
[2021-02-14] MEDS: Lantus 1000 UNITS/10 ML VIAL SC SCH (09:07)
[2021-02-14] MEDS: Nicotine 14 MG PATCH TD SCH (13:40)
[2021-02-14] MEDS: HumaLOG 300 UNITS/3 ML VIAL SC PRN (13:41)
[2021-02-14] MEDS: Atorvastatin Calcium 20 MG TAB PER TUBE SCH (20:38)
[2021-02-14] MEDS: diphenhydrAMINE 25 MG CAP PER TUBE PRN (20:40)
[2021-02-14] MEDS: Insulin Regular 300 UNITS/3 ML VIAL SC PRN (21:05)
[2021-02-15] MEDS: HYDROcodone/Acetaminophen 10/325 mg Tablet PER TUBE PRN ×3 (02:15→21:22)
[2021-02-15] MEDS: GUAIFENESIN SF SOLN 200 MG/10 ML UDCUP PO PRN ×2 (02:18→21:22)
[2021-02-15] MEDS: Albuterol Sulfate 2.5 mg/3 ml Neb EZPAP PRN (02:51)
[2021-02-15] MEDS: HumaLOG 300 UNITS/3 ML VIAL SC PRN ×3 (06:14→17:12)
[2021-02-15] MEDS: Enoxaparin Sodium 40 MG/0.4 ML SYRINGE SC SCH (08:18)
[2021-02-15] MEDS: predniSONE 20 MG TAB PO SCH (08:19)
[2021-02-15] MEDS: Lantus 1000 UNITS/10 ML VIAL SC SCH (08:19)
[2021-02-15] MEDS: Pantoprazole 40 MG GRANULES PACKET PER TUBE SCH ×2 (08:19→21:20)
[2021-02-15] MEDS: Metoprolol Tartrate 25 MG TAB PO SCH ×2 (08:19→21:20)
[2021-02-15] MEDS: Losartan 25 MG TAB PER TUBE SCH (08:19)
[2021-02-15] MEDS: Nicotine 14 MG PATCH TD SCH (11:17)
[2021-02-15] MEDS: Atorvastatin Calcium 20 MG TAB PER TUBE SCH (21:21)
[2021-02-15] MEDS: Insulin Regular 300 UNITS/3 ML VIAL SC PRN (21:23)
[2021-02-16] MEDS: GUAIFENESIN SF SOLN 200 MG/10 ML UDCUP PO PRN ×2 (06:10→20:42)
[2021-02-16] MEDS: HYDROcodone/Acetaminophen 10/325 mg Tablet PER TUBE PRN ×2 (06:10→20:42)
[2021-02-16] MEDS: HumaLOG 300 UNITS/3 ML VIAL SC PRN ×3 (06:12→18:04)
[2021-02-16] MEDS: Pantoprazole 40 MG GRANULES PACKET PER TUBE SCH ×2 (08:44→20:41)
[2021-02-16] MEDS: predniSONE 20 MG TAB PO SCH (08:44)
[2021-02-16] MEDS: Losartan 25 MG TAB PER TUBE SCH (08:44)
[2021-02-16] MEDS: Metoprolol Tartrate 25 MG TAB PO SCH ×2 (08:44→20:41)
[2021-02-16] MEDS: Enoxaparin Sodium 40 MG/0.4 ML SYRINGE SC SCH (08:45)
[2021-02-16] MEDS: Lantus 1000 UNITS/10 ML VIAL SC SCH (08:45)
[2021-02-16] MEDS ORDERED: Pancrelipase DR 12,000 1 CAP FS PRN (09:30)
[2021-02-16] MEDS ORDERED: Sodium Bicarbonate Tab 325 MG TAB PER TUBE PRN (09:30)
[2021-02-16] MEDS: Nicotine 14 MG PATCH TD SCH (12:25)
[2021-02-16] MEDS: Atorvastatin Calcium 20 MG TAB PER TUBE SCH (20:41)
[2021-02-17] MEDS: HYDROcodone/Acetaminophen 10/325 mg Tablet PER TUBE PRN ×2 (02:39→20:31)
[2021-02-17 06:56] LABS: #Eosinphils 0.4 thou/uL (0.0-0.7); #Lymphocytes 3.5 thou/uL (1.20-3.40); #Monocytes 1.4 thou/uL (0.11-0.59); #Neutrophils 11.6 thou/uL (1.40-6.50); %Basophils 0.2 % (0.0-1.0); %Eosinophils 2.3 % (0.0-10.0); %Lymphocytes 20.7 % (21.0-51.0); %Neutrophils 68.8 % (42.0-75.0); Hemoglobin 10.4 g/dL (12.0-16.0); Mean Corpuscular HGB CONC 32.5 g/dL (32.0-36.0); Mean Corpuscular Hemoglobin 28.3 pg (27.0-31.0); Mean Corpuscular Volume 87.1 fL (78.0-98.0); Mean Platelet Volume 6.9 fL (7.4-10.4); Platelet Count 338 thou/uL (130-400); RBC Distribution Width 17.3 % (11.5-14.5); Red Blood Cell (RBC) Count 3.67 mill/uL (4.20-5.40); White Blood Cell (WBC) Count 16.8 thou/uL (4.8-10.8)
[2021-02-17 07:12] LABS: ALT (SGPT) 50 U/L (8-55); AST (SGOT) 39 U/L (5-34); Albumin 3.4 g/dL (3.4-4.8); Alkaline Phosphatase 85 U/L (40-110); Anion Gap 17 mmol/L (10-20); BUN (Urea Nitrogen) 36 mg/dL (9.8-20.1); Bilirubin, Total 0.2 mg/dL (0.2-1.2); Calc. Creatinine Clearance 41 mL/min (70-130); Calcium 9.3 mg/dL (7.8-10.44); Carbon Dioxide 27 mmol/L (23-31); Chloride 95 mmol/L (98-107); Globulin 3.5 g/dL (2.4-3.5); Glucose 192 mg/dL (80-115); Potassium 4.7 mmol/L (3.5-5.1); Protein, Total 6.9 g/dL (5.8-8.1); Sodium 134 mmol/L (136-145)
[2021-02-17] MEDS: Enoxaparin Sodium 40 MG/0.4 ML SYRINGE SC SCH (08:32)
[2021-02-17] MEDS: Losartan 25 MG TAB PER TUBE SCH (08:33)
[2021-02-17] MEDS: Lantus 1000 UNITS/10 ML VIAL SC SCH (08:33)
[2021-02-17] MEDS: predniSONE 20 MG TAB PO SCH (08:33)
[2021-02-17] MEDS: Metoprolol Tartrate 25 MG TAB PO SCH ×2 (08:33→20:31)
[2021-02-17] MEDS: Pantoprazole 40 MG GRANULES PACKET PER TUBE SCH ×2 (08:33→20:31)
[2021-02-17] MEDS: Nicotine 14 MG PATCH TD SCH (12:28)
[2021-02-17] MEDS: HumaLOG 300 UNITS/3 ML VIAL SC PRN ×2 (12:28→17:02)
[2021-02-17] MEDS: cefTRIAXone\\ROCEPHIN 1 GM in Sodium Chloride 0.9% 100 ML IVPB SCH (17:03)
[2021-02-17] MEDS: Atorvastatin Calcium 20 MG TAB PER TUBE SCH (20:31)
[2021-02-17] MEDS: Benzonatate 100 MG CAP PO SCH (20:40)
[2021-02-18 06:14] LABS: #Eosinphils 0.4 thou/uL (0.0-0.7); #Monocytes 1.1 thou/uL (0.11-0.59); #Neutrophils 11.5 thou/uL (1.40-6.50); %Basophils 0.2 % (0.0-1.0); %Eosinophils 2.5 % (0.0-10.0); %Lymphocytes 18.7 % (21.0-51.0); %Monocytes 6.7 % (0.0-10.0); %Neutrophils 71.9 % (42.0-75.0); Hemoglobin 10.2 g/dL (12.0-16.0); Mean Corpuscular HGB CONC 31.7 g/dL (32.0-36.0); Mean Corpuscular Hemoglobin 27.5 pg (27.0-31.0); Mean Corpuscular Volume 86.8 fL (78.0-98.0); Mean Platelet Volume 7.2 fL (7.4-10.4); Platelet Count 347 thou/uL (130-400); RBC Distribution Width 17.3 % (11.5-14.5); Red Blood Cell (RBC) Count 3.72 mill/uL (4.20-5.40)
[2021-02-18 06:34] LABS: Anion Gap 16 mmol/L (10-20); BUN (Urea Nitrogen) 36 mg/dL (9.8-20.1); CRP (Inflammatory) 7.15 mg/dL (= or < 0.5); Calc. Creatinine Clearance 43 mL/min (70-130); Calcium 9.5 mg/dL (7.8-10.44); Carbon Dioxide 27 mmol/L (23-31); Chloride 96 mmol/L (98-107); Glucose 171 mg/dL (80-115); Potassium 4.9 mmol/L (3.5-5.1); Sodium 134 mmol/L (136-145)
[2021-02-18] MEDS: predniSONE 20 MG TAB PO SCH (09:07)
[2021-02-18] MEDS: Benzonatate 100 MG CAP PO SCH ×3 (09:08→21:58)
[2021-02-18] MEDS: Losartan 25 MG TAB PER TUBE SCH (09:08)
[2021-02-18] MEDS: Metoprolol Tartrate 25 MG TAB PO SCH ×2 (09:08→21:58)
[2021-02-18] MEDS: Enoxaparin Sodium 40 MG/0.4 ML SYRINGE SC SCH (09:09)
[2021-02-18] MEDS: Pantoprazole 40 MG GRANULES PACKET PER TUBE SCH ×2 (09:09→21:58)
[2021-02-18] MEDS: Lantus 1000 UNITS/10 ML VIAL SC SCH (09:09)
[2021-02-18] MEDS: Nicotine 14 MG PATCH TD SCH (11:27)
[2021-02-18] MEDS: HumaLOG 300 UNITS/3 ML VIAL SC PRN ×3 (13:11→21:59)
[2021-02-18] MEDS: cefTRIAXone\\ROCEPHIN 1 GM in Sodium Chloride 0.9% 100 ML IVPB SCH (16:47)
[2021-02-18] MEDS: Atorvastatin Calcium 20 MG TAB PER TUBE SCH (21:58)
[2021-02-18] MEDS: HYDROcodone/Acetaminophen 10/325 mg Tablet PER TUBE PRN (22:22)
[2021-02-18] MEDS: HYDROcodone/Acetaminophen 10/325 mg Tablet PO PRN (22:30)
[2021-02-19] MEDS: Pantoprazole 40 MG GRANULES PACKET PER TUBE SCH ×2 (10:20→20:52)
[2021-02-19] MEDS: Benzonatate 100 MG CAP PO SCH ×3 (10:20→20:52)
[2021-02-19] MEDS: Losartan 25 MG TAB PER TUBE SCH (10:20)
[2021-02-19] MEDS: predniSONE 20 MG TAB PO SCH (10:21)
[2021-02-19] MEDS: Metoprolol Tartrate 25 MG TAB PO SCH ×2 (10:21→20:52)
[2021-02-19] MEDS: Lantus 1000 UNITS/10 ML VIAL SC SCH (10:21)
[2021-02-19] MEDS: Enoxaparin Sodium 40 MG/0.4 ML SYRINGE SC SCH (10:21)
[2021-02-19] MEDS: Nicotine 14 MG PATCH TD SCH (13:49)
[2021-02-19] MEDS: HumaLOG 300 UNITS/3 ML VIAL SC PRN ×2 (13:50→16:27)
[2021-02-19] MEDS: cefTRIAXone\\ROCEPHIN 1 GM in Sodium Chloride 0.9% 100 ML IVPB SCH (16:23)
[2021-02-19] MEDS: HYDROcodone/Acetaminophen 10/325 mg Tablet PO PRN (20:51)
[2021-02-19] MEDS: Atorvastatin Calcium 20 MG TAB PER TUBE SCH (20:52)
[2021-02-20] MEDS: Benzonatate 100 MG CAP PO SCH ×3 (08:19→20:46)
[2021-02-20] MEDS: Metoprolol Tartrate 25 MG TAB PO SCH ×2 (08:19→20:46)
[2021-02-20] MEDS: Enoxaparin Sodium 40 MG/0.4 ML SYRINGE SC SCH (08:20)
[2021-02-20] MEDS: predniSONE 20 MG TAB PO SCH (08:20)
[2021-02-20] MEDS: Losartan 25 MG TAB PER TUBE SCH (08:20)
[2021-02-20] MEDS: Pantoprazole 40 MG GRANULES PACKET PER TUBE SCH ×2 (08:21→20:46)
[2021-02-20] MEDS: Lantus 1000 UNITS/10 ML VIAL SC SCH (08:21)
[2021-02-20] MEDS: Nicotine 14 MG PATCH TD SCH (12:22)
[2021-02-20] MEDS: HumaLOG 300 UNITS/3 ML VIAL SC PRN ×2 (12:23→17:41)
[2021-02-20] MEDS: cefTRIAXone\\ROCEPHIN 1 GM in Sodium Chloride 0.9% 100 ML IVPB SCH (17:41)
[2021-02-20] MEDS: Atorvastatin Calcium 20 MG TAB PER TUBE SCH (20:46)
[2021-02-20] MEDS: HYDROcodone/Acetaminophen 10/325 mg Tablet PO PRN (22:10)
[2021-02-21] MEDS: Albuterol Sulfate 2.5 mg/3 ml Neb EZPAP PRN (03:12)
[2021-02-21] MEDS: HYDROcodone/Acetaminophen 10/325 mg Tablet PO PRN ×2 (03:43→20:10)
[2021-02-21 05:59] LABS: #Basophils 0.1 thou/uL (0.0-0.2); #Eosinphils 0.2 thou/uL (0.0-0.7); #Lymphocytes 3.7 thou/uL (1.20-3.40); #Monocytes 1.2 thou/uL (0.11-0.59); #Neutrophils 10.2 thou/uL (1.40-6.50); %Basophils 0.8 % (0.0-1.0); %Eosinophils 1.2 % (0.0-10.0); %Lymphocytes 24.1 % (21.0-51.0); %Monocytes 7.5 % (0.0-10.0); %Neutrophils 66.5 % (42.0-75.0); Hemoglobin 9.7 g/dL (12.0-16.0); Mean Corpuscular HGB CONC 31.8 g/dL (32.0-36.0); Mean Corpuscular Hemoglobin 27.4 pg (27.0-31.0); Mean Corpuscular Volume 86.3 fL (78.0-98.0); Mean Platelet Volume 6.9 fL (7.4-10.4); Platelet Count 370 thou/uL (130-400); Red Blood Cell (RBC) Count 3.52 mill/uL (4.20-5.40); White Blood Cell (WBC) Count 15.4 thou/uL (4.8-10.8)
[2021-02-21 06:23] LABS: Anion Gap 16 mmol/L (10-20); BUN (Urea Nitrogen) 40 mg/dL (9.8-20.1); Calc. Creatinine Clearance 45 mL/min (70-130); Calcium 9.3 mg/dL (7.8-10.44); Carbon Dioxide 26 mmol/L (23-31); Chloride 95 mmol/L (98-107); Glucose 161 mg/dL (80-115); Potassium 4.6 mmol/L (3.5-5.1); Sodium 132 mmol/L (136-145)
[2021-02-21] MEDS: Pantoprazole 40 MG GRANULES PACKET PER TUBE SCH ×2 (08:38→10:47)
[2021-02-21] MEDS: Losartan 25 MG TAB PER TUBE SCH (08:38)
[2021-02-21] MEDS: predniSONE 20 MG TAB PO SCH (08:38)
[2021-02-21] MEDS: Metoprolol Tartrate 25 MG TAB PO SCH ×2 (08:38→20:10)
[2021-02-21] MEDS: Benzonatate 100 MG CAP PO SCH ×3 (08:38→20:09)
[2021-02-21] MEDS: Enoxaparin Sodium 40 MG/0.4 ML SYRINGE SC SCH (08:39)
[2021-02-21] MEDS: Lantus 1000 UNITS/10 ML VIAL SC SCH (08:39)
[2021-02-21] MEDS: Nicotine 14 MG PATCH TD SCH (12:04)
[2021-02-21] MEDS: HumaLOG 300 UNITS/3 ML VIAL SC PRN ×2 (12:05→17:12)
[2021-02-21] MEDS: cefTRIAXone\\ROCEPHIN 1 GM in Sodium Chloride 0.9% 100 ML IVPB SCH (17:12)
[2021-02-21] MEDS: Atorvastatin Calcium 20 MG TAB PER TUBE SCH (20:10)
[2021-02-22] MEDS: Benzonatate 100 MG CAP PO SCH ×3 (08:16→20:37)
[2021-02-22] MEDS: predniSONE 20 MG TAB PO SCH (08:16)
[2021-02-22] MEDS: Enoxaparin Sodium 40 MG/0.4 ML SYRINGE SC SCH (08:17)
[2021-02-22] MEDS: Losartan 25 MG TAB PER TUBE SCH (08:17)
[2021-02-22] MEDS: Metoprolol Tartrate 25 MG TAB PO SCH ×2 (08:17→20:37)
[2021-02-22] MEDS: Lantus 1000 UNITS/10 ML VIAL SC SCH (08:17)
[2021-02-22] MEDS: Lorazepam 0.5 MG TAB PO PRN ×2 (09:06→14:06)
[2021-02-22] MEDS: HumaLOG 300 UNITS/3 ML VIAL SC PRN ×2 (12:20→21:02)
[2021-02-22] MEDS: Nicotine 14 MG PATCH TD SCH (12:20)
[2021-02-22 14:51] VITALS: BMI 20.6
[2021-02-22] MEDS: cefTRIAXone\\ROCEPHIN 1 GM in Sodium Chloride 0.9% 100 ML IVPB SCH (16:54)
[2021-02-22] MEDS: HYDROcodone/Acetaminophen 10/325 mg Tablet PO PRN (20:37)
[2021-02-22] MEDS: Atorvastatin Calcium 20 MG TAB PER TUBE SCH (20:37)
[2021-02-23] MEDS: HYDROcodone/Acetaminophen 10/325 mg Tablet PO PRN ×4 (02:12→21:27)
[2021-02-23] MEDS: Lorazepam 0.5 MG TAB PO PRN ×3 (03:00→20:45)
[2021-02-23] MEDS: predniSONE 20 MG TAB PO SCH (08:15)
[2021-02-23] MEDS: Lantus 1000 UNITS/10 ML VIAL SC SCH (08:16)
[2021-02-23] MEDS: Enoxaparin Sodium 40 MG/0.4 ML SYRINGE SC SCH (08:16)
[2021-02-23] MEDS: Losartan 25 MG TAB PER TUBE SCH (08:16)
[2021-02-23] MEDS: Benzonatate 100 MG CAP PO SCH ×3 (08:16→20:44)
[2021-02-23] MEDS: Metoprolol Tartrate 25 MG TAB PO SCH ×2 (08:16→20:44)
[2021-02-23] MEDS: HumaLOG 300 UNITS/3 ML VIAL SC PRN ×2 (11:53→16:53)
[2021-02-23] MEDS: Nicotine 14 MG PATCH TD SCH (11:54)
[2021-02-23] MEDS: cefTRIAXone\\ROCEPHIN 1 GM in Sodium Chloride 0.9% 100 ML IVPB SCH (16:52)
[2021-02-23] MEDS: Atorvastatin Calcium 20 MG TAB PER TUBE SCH (20:44)
[2021-02-24] MEDS: Lorazepam 0.5 MG TAB PO PRN ×2 (05:34→19:03)
[2021-02-24] MEDS: predniSONE 20 MG TAB PO SCH (08:26)
[2021-02-24] MEDS: Losartan 25 MG TAB PER TUBE SCH (08:26)
[2021-02-24] MEDS: Benzonatate 100 MG CAP PO SCH ×3 (08:26→21:38)
[2021-02-24] MEDS: Enoxaparin Sodium 40 MG/0.4 ML SYRINGE SC SCH (08:26)
[2021-02-24] MEDS: Metoprolol Tartrate 25 MG TAB PO SCH ×2 (08:26→21:36)
[2021-02-24] MEDS: Lantus 1000 UNITS/10 ML VIAL SC SCH (08:27)
[2021-02-24] MEDS: HYDROcodone/Acetaminophen 10/325 mg Tablet PO PRN ×2 (08:39→21:40)
[2021-02-24] MEDS: Nicotine 14 MG PATCH TD SCH (11:31)
[2021-02-24] MEDS: HumaLOG 300 UNITS/3 ML VIAL SC PRN ×2 (11:32→18:28)
[2021-02-24] MEDS: cefTRIAXone\\ROCEPHIN 1 GM in Sodium Chloride 0.9% 100 ML IVPB SCH (16:32)
[2021-02-24] MEDS: Atorvastatin Calcium 20 MG TAB PER TUBE SCH (21:37)
[2021-02-25] MEDS: HYDROcodone/Acetaminophen 10/325 mg Tablet PO PRN (02:51)
[2021-02-25] MEDS: Lorazepam 0.5 MG TAB PO PRN (03:41)
[2021-02-25] MEDS: HumaLOG 300 UNITS/3 ML VIAL SC PRN ×2 (06:13→12:21)
[2021-02-25] MEDS: Enoxaparin Sodium 40 MG/0.4 ML SYRINGE SC SCH (08:09)
[2021-02-25] MEDS: Benzonatate 100 MG CAP PO SCH ×2 (08:09→14:29)
[2021-02-25] MEDS: Losartan 25 MG TAB PER TUBE SCH (08:09)
[2021-02-25] MEDS: predniSONE 20 MG TAB PO SCH (08:09)
[2021-02-25] MEDS: Metoprolol Tartrate 25 MG TAB PO SCH (08:09)
[2021-02-25] MEDS: Lantus 1000 UNITS/10 ML VIAL SC SCH (08:10)
[2021-02-25] MEDS: Nicotine 14 MG PATCH TD SCH (12:21)
[2021-02-25 15:48] VITALS: BP 141/100; TEMP 97.9
== END 2021-02-25 16:25 | disposition hospice, home (50) | DRG 180 ==
LOC: ERS 11:52 → T4-A 17:06
PROVIDERS: ADMIT Internal Medicine; ATTEND Internal Medicine
DX: C34.12 Malignant neoplasm of upper lobe, left bronchus or lung (principal); E43 Unspecified severe protein-calorie malnutrition; J96.21 Acute and chronic respiratory failure with hypoxia; Z51.5 Encounter for palliative care; Z20.822 Contact with and (suspected) exposure to COVID-19; J44.1 Chronic obstructive pulmonary disease with (acute) exacerbation; R45.851 Suicidal ideations; E22.2 Syndrome of inappropriate secretion of antidiuretic hormone; J98.11 Atelectasis; R64 Cachexia; Z96.642 Presence of left artificial hip joint; F17.210 Nicotine dependence, cigarettes, uncomplicated; K22.0 Achalasia of cardia; R13.10 Dysphagia, unspecified; K22.2 Esophageal obstruction; K21.9 Gastro-esophageal reflux disease without esophagitis; R00.0 Tachycardia, unspecified; E11.65 Type 2 diabetes mellitus with hyperglycemia; K31.84 Gastroparesis; N18.30 Chronic kidney disease, stage 3 unspecified; E11.22 Type 2 diabetes mellitus with diabetic chronic kidney disease; I12.9 Hypertensive chronic kidney disease with stage 1 through stage 4 chronic kidney disease, or unspecified chronic kidney disease; D47.3 Essential (hemorrhagic) thrombocythemia; E78.5 Hyperlipidemia, unspecified; D63.1 Anemia in chronic kidney disease; K43.9 Ventral hernia without obstruction or gangrene; Z88.1 Allergy status to other antibiotic agents; Z88.5 Allergy status to narcotic agent; Z85.3 Personal history of malignant neoplasm of breast; Z79.899 Other long term (current) drug therapy; Z90.49 Acquired absence of other specified parts of digestive tract; Z90.710 Acquired absence of both cervix and uterus; Z90.89 Acquired absence of other organs; Z93.1 Gastrostomy status; Z90.11 Acquired absence of right breast and nipple; Z68.20 Body mass index [BMI] 20.0-20.9, adult; Z99.81 Dependence on supplemental oxygen
CPT/HCPCS: 36415; 36416; 71045; 80048; 80053; 80306; 80307; 81025; 83036; 83880; 84145; 84443; 84484; 85025; 85379; 86140; 93005; 94640; J0696; J1650; J1815; J2920; J3490; J7512; J7611; J7620; Q0163; U0002; U0005